=== PATIENT | female | born 1965 | race Caucasian/White ===

== ENCOUNTER 2025-04-03 11:50 | Inpatient (IN) | payer SELFPAY ==
[2025-04-03] VITALS (9 sets, daily range): BP systolic 135–155; BP diastolic 74–99; PULSE 79–106; RESP 12–20; TEMP 36.4–37.2; O2SAT 95–99; BMI 28.7; BMI 25.9
[2025-04-03 12:35] LABS: Mucous, Urine 0 SEEN /hpf (<or=2+); Red Blood Cells-Urine 0 SEEN /hpf (0-5)
[2025-04-03 12:36] LABS: Color, Urine Yellow (Yellow); Glucose, Dipstick Normal (Normal); Ketone-Dipstick Negative (Negative); Leukocyte Esterase-Dipstick 25 /ul (Negative); Nitrite-Dipstick Negative (Negative); Occult Blood-Urine 10 /ul (Negative); Protein-Dipstick 30 mg/dl (Negative); Specific Gravity, Urine 1.010 (1.002-1.030)
[2025-04-03 12:42] LABS: Urine Bilirubin Dipstick 3 mg/dL (Negative)
[2025-04-03 12:43] LABS: Hematocrit 42.5 % (37-47); Hemoglobin 14.8 g/dL (12.0-15.0); Immature Granulocytes Count 0.030 X10^3/uL (0.0-0.0); Mean Corp Hgb Conc 34.8 g/dL (32-36); Mean Corpuscular Volume 84.2 fL (81-99); Mean Platelet Vol. 9.7 fl (6.2-12.0); NRBC Flagged by Analyzer 0 % (0-5); Platelet Count 380 K/mm3 (150-450); RBC Distribution Width CV 15.7 % (11.6-14.6); RBC Distribution Width SD 47.9 fl (35.1-43.9); Red Blood Count 5.05 M/mm3 (4.2-5.4); White Blood Count 10.3 K/mm3 (4.4-11.0)
[2025-04-03 12:43] LABS: Squamous Epithelial Cells - UA 0-5 SEEN /hpf (5-10)
--- NOTE | 2025-04-03 13:36 | US_ITS ---
PROCEDURE: GALLBLADDER 04/03/2025 REASON FOR EXAM: CHOLEDOCHOLITHIASIS TECHNIQUE: Procedure Code: USGB Modality: US Procedure: GALLBLADDER COMPARISON: None. FINDINGS: LIVER ECHOGENICITY: Diffuse increase in hepatic parenchymal echogenicity. SIZE: Enlarged measuring 19.1 cm in length. CONTOUR: Smooth. MASS: None. PORTAL VEIN: Normal direction hepatopetal portal venous flow. GALLBLADDER SIZE: Normal. STONES: None. SLUDGE: None. WALL THICKNESS: Normal measuring 2.6 mm. PERICHOLECYSTIC FLUID: None. SONOGRAPHIC SNEED'S SIGN: Negative. OTHER: Diffuse echogenic intramural foci producing comet tail reverberation artifact, suggest gallbladder adenomyomatosis. BILE DUCTS: Normal with the CBD measuring 6.3 mm in diameter. PANCREAS: Unremarkable as visualized. The distal pancreas is obscured by overlying bowel gas. RIGHT KIDNEY: Normal size and echogenicity with a length of 12.0 cm. No hydronephrosis, nephrolithiasis, cyst or mass seen. ASCITES/EFFUSIONS: None. OTHER: None. US/Gallbladder IMPRESSION: 1. Hepatomegaly with diffuse hepatic steatosis. 2. Findings suggest extensive gallbladder adenomyomatosis. Reading Location: [id number]
[2025-04-03] MEDS: 0.9% Normal Saline (1000mL) 1,000 ML 150 ML IV ×2 (13:47→18:53)
[2025-04-03] MEDS: HYDROmorphone 0.5 MG/0.5 ML SYRINGE IV (13:47)
[2025-04-03 13:51] LABS: Lipase 28 U/L (13-75)
[2025-04-03 13:57] LABS: AST(SGOT) 270 U/L (<=31); Alanine Aminotransfer ALT/SGPT 586 U/L (<=34); Albumin, Serum 4.2 g/dL (3.4-4.8); Alkaline Phosphatase 634 U/L (35-104); Anion Gap 14 (5-15); BUN 11 mg/dL (4-19); BUN/Creat Ratio 18.5 RATIO (10-20); Calcium,Total 10.0 mg/dL (7.6-11.0); Carbon Dioxide 18.9 mmol/L (21.0-32.0); Chloride 104 mmol/L (98-108); Estimated Creatinine Clearance 86.39 ml/min (50-250); Globulin 3.3 g/dL (2.2-4.2); Glucose 114 mg/dL (70-99); Potassium 3.8 mmol/L (3.3-5.1)
--- NOTE | 2025-04-03 14:45 | CT_ITS ---
PROCEDURE: ABDOMEN/PELVIS W IV CONT ONLY 04/03/2025 REASON FOR EXAM: ABDOMINAL PAIN TECHNIQUE: Procedure Code: [id number] Modality: CT Procedure: ABDOMEN/PELVIS W IV CONT ONLY Coronal and Sagittal reconstruction series were provided. CONTRAST: Isovue 370 VOLUME: 75 mL One or more dose reduction techniques were used (e.g., Automated exposure control, adjustment of the mA and/or kV according to patient size, use of iterative reconstruction technique. RADIATION DOSE SUMMARY: CTDlvol: 24 mGy DLP: 738 mGycm FINDINGS: No lumbar compression fracture. Grade 1 subluxation L4 upon L5. Lung bases are clear. Mild intra and extrahepatic biliary dilatation with a mildly prominent gallbladder of the demonstrates enhancing and thickened wall. Distended intrapancreatic common bile duct. Correlate with laboratory values to assess for possible biliary obstruction. MRCP could be considered. No free-fluid or free air. No obstruction of the large bowel of the small bowel. No renal mass, calculus or hydronephrosis. Normal adrenal glands. No pancreatic mass. Negative for ascites. Negative for adenopathy. Negative for diverticulitis. CT/Abdomen/Pelvis W IV Cont ONLY IMPRESSION: Abnormal gallbladder with intra and extrahepatic biliary dilatation. Choledoch olithiasis and cholecystitis not excluded. Reading Location: [facility]
--- NOTE | 2025-04-03 16:14 | EDS_ITS ---
HPI HPI - GI History of Present Illness Chief Complaint: Abd Pain Informant: patient and spouse/S.O. Narrative Narrative: 59-year-old female presenting to the emergency room with epigastric right upper quadrant pain and jaundice. Patient states for at least a week she has been having pain and nausea. She notes that her stool is light-colored and greasy, her urine is dark, and she is becoming yellow. She states she has never had this problem before. She states she is otherwise been pretty healthy. PFSH PFSH Medical History Spinal stenosis Back pain (~02/05/25) Smoker Home Medications Medication Instructions Recorded Last Taken Type NK 04/03/25 Unknown History Allergy/AdvReac Type Severity Reaction Status Date / Time No Known Allergies Allergy Verified 04/03/25 11:51 Surgical History H/O unilateral salpingectomy H/O: hysterectomy Social History Smoking Status: Current every day smoker tobacco type: cigarettes ROS ROS ED Constitutional Constitutional ED: Denies chills or weight loss Eyes Eyes: Denies blurry vision, change in vision or diplopia ENT ENT ED: Denies ear pain, rhinorrhea or sore throat Cardiovascular Cardiovascular: Denies chest pain, orthopnea, palpitations or racing heartbeat Respiratory/Chest Respiratory/Chest: Denies cough, dyspnea or orthopnea Gastrointestinal Gastrointestinal: Reports abdominal pain, nausea and other Details: See history of present illness ; Denies diarrhea or vomiting Genitourinary Genitourinary ED: Denies dysuria, hematuria or urinary frequency Musculoskeletal Musculoskeletal: Reports back pain; Denies arthralgias, myalgias or neck pain Integumentary Reports other Details: Jaundice ; Denies abscess or rash Neurologic Neurologic: Denies headache(s), paresthesias or weakness Psychiatric Psychiatric: Denies anxiety, depression, suicidal ideation or suicidal thoughts Endocrine Endocrinology: Denies polydipsia, polyphagia or polyuria Allergic/Immunologic Allergic/Immunologic ED: Denies mouth swelling, tongue swelling or urticaria EXAM Physical Exam Const Vital Signs: 04/03/25 11:52 04/03/25 12:41 04/03/25 12:48 Temperature 99 F 97.8 F Temperature Source Oral Oral Pulse Rate 106 H 106 H Respiratory Rate 18 14 Respiratory Effort Short of Breath Respiratory Pattern Normal Blood Pressure 148/89 H 149/99 H Blood Pressure Mean 108 115 Pulse Ox 97 97 Oxygen Delivery Method Room Air Room Air 04/03/25 13:00 04/03/25 13:51 04/03/25 15:00 Temperature 97.8 F Temperature Source Oral Pulse Rate 104 H 99 79 Respiratory Rate 14 20 H 14 Respiratory Effort Respiratory Pattern Blood Pressure 140/90 H 151/74 H 145/89 H Blood Pressure Mean 106 99 107 Pulse Ox 97 95 99 Oxygen Delivery Method Room Air Room Air Room Air Positive well nourished, well developed and obese General Appearance ED: well developed and NAD Nutritional Appearance: obese HEENT Reports normocephalic, head/scalp atraumatic and moist mucous membranes Eyes PERRL and EOMs intact bilaterally General Eye ED: Yes scleral icterus Neck no lymphadenopathy, supple and no JVD Resp normal respiratory effort and clear to auscultation bilaterally Cardio regular rate, regular rhythm and no murmurs GI Inspection: Negative for abdominal distention Auscultation: normoactive bowel sounds Palpation: soft and tender epigastric and RUQ; Negative for guarding or rebound tenderness present Back/Spine no CVA tenderness and normal ROM Extremity normal to inspection General Extremety ED: Negative for edema General Extremity: Negative for edema Neuro oriented x3 and CN's II-XII intact bilaterally Sensorium / Orientation: alert Motor Exam: strength 5/5 throughout Psych mental status grossly normal Mood & Affect: Negative for depressed or tearful Skin no rashes or lesions noted and no wounds General Skin Exam: jaundice MDM MDM MDM Narrative Medical decision making narrative: Differential diagnosis includes choledocholithiasis acute cholecystitis gallstone pancreatitis pancreatitis malignancy or ulcer disease anemia obstructive jaundice Basic blood work shows a white count of 10.3 with a normal differential hemoglobin 14.8 platelet count of 380. BMP creatinine 0.59. Glucose 114. Total bilirubin is 8.79 AST of 278 ALT 586 alk phos 634 lipase is normal at 28. Urinalysis with no overt infection. Does have bilirubin and urobilinogen. Gallbladder ultrasound was obtained read by radiology reviewed by myself.. This reveals hepatic steatosis and suggestive of adenomyomatosis. Common bile duct is 6.3 mm. Wall thickness 2.6 mm no pericholecystic fluid negative sonographic Hoover's. I spoke with Dr. Mi from gastroenterology. We will obtain a CT of the abdomen pelvis. Plan will be for admission. History & Record Review Discussion w/independent historian: Patient and Significant other Lab Data Attestation: I reviewed the patient's lab results. Labs: Laboratory Results - last 24 hr 04/03/25 04/03/25 04/03/25 12:15 12:20 13:00 WBC 10.3 RBC 5.05 Hgb 14.8 Hct 42.5 MCV 84.2 MCH 29.3 MCHC 34.8 RDW Std Deviation 47.9 H RDW Coeff of Lissette 15.7 H Plt Count 380 MPV 9.7 Immature Gran % (Auto) 0.300 Neut % (Auto) 68.7 Lymph % (Auto) 22.8 [place] % (Auto) 5.8 Eos % (Auto) 1.7 Baso % (Auto) 0.7 Absolute Neuts (auto) 7.1 Absolute Lymphs (auto) 2.34 Nucleated RBC % 0 Sodium Cancelled 137 Potassium Cancelled 3.8 Chloride Cancelled 104 Carbon Dioxide Cancelled 18.9 L Anion Gap Cancelled 14 BUN Cancelled 11 Creatinine Cancelled 0.59 L Estim Creat Clear Calc Cancelled 86.39 Est GFR (MDRD) Non-Af Cancelled 103 BUN/Creatinine Ratio Cancelled 18.5 Glucose Cancelled 114 H Calcium Cancelled 10.0 Total Bilirubin Cancelled 8.79 H AST Cancelled 270 H ALT Cancelled 586 H Alkaline Phosphatase Cancelled 634 H Total Protein Cancelled 7.5 Albumin Cancelled 4.2 Globulin Cancelled 3.3 Albumin/Globulin Ratio Cancelled 1.3 Lipase Cancelled 28 Urine Color Yellow Urine Clarity Clear Urine pH 7.0 Ur Specific [place] 1.010 Urine Protein 30 H Urine Glucose (UA) Normal Urine Ketones Negative Urine Occult Blood 10 H Urine Nitrite Negative Urine Bilirubin 3 H Urine Urobilinogen 4 H Ur Leukocyte Esterase 25 H Urine RBC 0 SEEN Urine WBC 0-5 SEEN Ur Squamous Epith Cells 0-5 SEEN Urine Bacteria 0 SEEN Urine Mucus 0 SEEN Radiography Diagnostic Testing: Clinical Impression(s) from Imaging Studies Gallbladder Ultrasound 04/03/25 13:36 IMPRESSION: 1. Hepatomegaly with diffuse hepatic steatosis. 2. Findings suggest extensive gallbladder adenomyomatosis. Reading Location: [id number] Abdomen/Pelvis CT 04/03/25 14:45 IMPRESSION: Abnormal gallbladder with intra and extrahepatic biliary dilatation. Ch oledocholithiasis and cholecystitis not excluded. Reading Location: [facility] Management Discussion w/another healthcare provider: Hospitalist (Dr Martins) and Cleaner Assistant (Dr Mi) Discharge Plan Dx/Rx/DC Orders Clinical Impression: Obstructive jaundice, Abdominal pain Disposition Disposition: Acute Care Hospital [facility]
--- NOTE | 2025-04-03 16:49 | PCM.HP.STD ---
HPI - General General Date of Admission: 04/03/25 Date of Service: 04/03/25 Chief Complaint: Abdominal pain with jaundice HPI Narrative LADARIUS LIN, is a 59 F who presented to [facility] ED on 04/03/2025 with abdominal pain and jaundice. Patient has no significant past medical history, is on no medications at home. She is a current smoker, smokes 10 to 20 cigarettes daily. She lives at home with her boyfriend, has good functional status at baseline. 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 She reports ongoing abdominal pain now for about 2 months. She states initially was intermittent but has now been more constant over the past few weeks, and she noticed that her skin was turning yellow about 2 days ago. She notes that eating does seem to make the pain worse. Nothing seems to make the pain much better. She has been trying Tylenol, naproxen, Pepcid and Tums with minimal relief of symptoms. In the ED she was mildly hypertensive to the 140 systolic but otherwise afebrile, in normal sinus rhythm and stable on room air at rest. Labs notable for T. bili 8.79, AST 270, ALT 586, alk phos 634. Gallbladder ultrasound showed findings suggesting extensive gallbladder adenomyomatosis as well as hepatomegaly, no other concerning findings. CT abdomen pelvis showed an abnormal gallbladder with intra and extrahepatic biliary ductal dilation. ED visit discussed with Dr. Mi who recommended admission to medicine with plan for ERCP tomorrow. Hospitalist was then contacted for admission. I saw the patient at bedside in the ED, boyfriend was present. Patient was sitting back fairly comfortably in bed, conversing normally, in no acute distress. She had been given doses of IV Dilaudid and Zofran with some relief of pain and nausea. She denies any fevers or chills. Denied any other acute concerns currently. Will be admitted for further management. [facility] Medical History Spinal stenosis Back pain (~02/05/25) Smoker Home Medications Medication Instructions Recorded Last Taken Type NK 04/03/25 Unknown History Allergy/AdvReac Type Severity Reaction Status Date / Time No Known Allergies Allergy Verified 04/03/25 11:51 Surgical History H/O unilateral salpingectomy H/O: hysterectomy Social History Smoking Status: Current every day smoker tobacco type: cigarettes ROS Constitutional Constitutional: Denies chills, fatigue, fever(s) or weakness Eyes Eyes: Denies change in vision Cardiovascular Cardiovascular: Denies chest pain Respiratory/Chest Respiratory/Chest: Denies shortness of breath at rest Gastrointestinal Gastrointestinal: Reports abdominal pain and nausea; Denies constipation, diarrhea or vomiting Musculoskeletal Musculoskeletal: Denies arthralgias or myalgias Neurologic Neurologic: Denies dizziness, focal weakness, headache(s), numbness or tingling Vital Signs Vital Signs Vital Signs: 04/03/25 11:52 04/03/25 12:41 04/03/25 12:48 Temperature 99 F 97.8 F Temperature Source Oral Oral Pulse Rate 106 H 106 H Respiratory Rate 18 14 Respiratory Effort Short of Breath Respiratory Pattern Normal Blood Pressure 148/89 H 149/99 H Blood Pressure Mean 108 115 Pulse Ox 97 97 Oxygen Delivery Method Room Air Room Air 04/03/25 13:00 04/03/25 13:51 04/03/25 15:00 Temperature 97.8 F Temperature Source Oral Pulse Rate 104 H 99 79 Respiratory Rate 14 20 H 14 Respiratory Effort Respiratory Pattern Blood Pressure 140/90 H 151/74 H 145/89 H Blood Pressure Mean 106 99 107 Pulse Ox 97 95 99 Oxygen Delivery Method Room Air Room Air Room Air Weight Weight: 66.678 kg Body Mass Index (BMI) 28.7 Physical Exam Const alert, oriented x3, no apparent distress and average body habitus Constitutional Narrative: Upper middle-aged female, good energy level noted, sitting back fairly comfortably in bed, conversing normally, in no acute distress. General Appearance: cooperative and comfortable HEENT normocephalic, head/scalp atraumatic, hearing grossly normal bilaterally, nasal mucous membranes and turbinates normal and moist oral mucous membranes Eyes PERRL and EOMs intact bilaterally Eyes Narrative: Scleral icterus noted. Neck full ROM Chest inspection of chest normal Resp normal respiratory effort, normal air movement, no use of accessory muscles and clear to auscultation bilaterally Cardio regular rate, regular rhythm, no murmurs and peripheral pulses 2+ throughout GI GI Narrative: Mild tenderness to palpation noted in the epigastric to right upper quadrant areas. Abdomen otherwise nondistended and soft on palpation. Back/Spine normal ROM Extremity normal to inspection, full ROM and no pedal edema Skin Skin Narrative: Jaundice noted. Psych mental status grossly normal Results Lab / Micro Data 04/03/25 12:15 04/03/25 13:00 Labs: Laboratory Results - last 24 hr 04/03/25 12:15: WBC 10.3, RBC 5.05, Hgb 14.8, Hct 42.5, MCV 84.2, MCH 29.3, MCHC 34.8, RDW Std Deviation 47.9 H, RDW Coeff of Lissette 15.7 H, Plt Count 380, MPV 9.7, Immature Gran % (Auto) 0.300, Neut % (Auto) 68.7, Lymph % (Auto) 22.8, [place] % (Auto) 5.8, Eos % (Auto) 1.7, Baso % (Auto) 0.7, Absolute Neuts (auto) 7.1, Absolute Lymphs (auto) 2.34, Nucleated RBC % 0, Sodium Cancelled, Potassium Cancelled, Chloride Cancelled, Carbon Dioxide Cancelled, Anion Gap Cancelled, BUN Cancelled, Creatinine Cancelled, Estim Creat Clear Calc Cancelled, Est GFR (MDRD) Non-Af Cancelled, BUN/Creatinine Ratio Cancelled, Glucose Cancelled, Calcium Cancelled, Total Bilirubin Cancelled, AST Cancelled, ALT Cancelled, Alkaline Phosphatase Cancelled, Total Protein Cancelled, Albumin Cancelled, Globulin Cancelled, Albumin/Globulin Ratio Cancelled, Lipase Cancelled 04/03/25 12:20: Urine Color Yellow, Urine Clarity Clear, Urine pH 7.0, Ur Specific [place] 1.010, Urine Protein 30 H, Urine Glucose (UA) Normal, Urine Ketones Negative, Urine Occult Blood 10 H, Urine Nitrite Negative, Urine Bilirubin 3 H, Urine Urobilinogen 4 H, Ur Leukocyte Esterase 25 H, Urine RBC 0 SEEN, Urine WBC 0-5 SEEN, Ur Squamous Epith Cells 0-5 SEEN, Urine Bacteria 0 SEEN, Urine Mucus 0 SEEN 04/03/25 13:00: Sodium 137, Potassium 3.8, Chloride 104, Carbon Dioxide 18.9 L, Anion Gap 14, BUN 11, Creatinine 0.59 L, Estim Creat Clear Calc 86.39, Est GFR (MDRD) Non-Af 103, BUN/Creatinine Ratio 18.5, Glucose 114 H, Calcium 10.0, Total Bilirubin 8.79 H, AST 270 H, ALT 586 H, Alkaline Phosphatase 634 H, Total Protein 7.5, Albumin 4.2, Globulin 3.3, Albumin/Globulin Ratio 1.3, Lipase 28 Imaging Radiology Impression Gallbladder Ultrasound 04/03/25 13:36 IMPRESSION: 1. Hepatomegaly with diffuse hepatic steatosis. 2. Findings suggest extensive gallbladder adenomyomatosis. Reading Location: [id number] Abdomen/Pelvis CT 04/03/25 14:45 IMPRESSION: Abnormal gallbladder with intra and extrahepatic biliary dilatation. Choledocholithiasis and cholecystitis not excluded. Reading Location[facility] Assessment & Plan Assessment/Plan (1) Abdominal pain: (2) Obstructive jaundice: PLAN: Plan Patient is a 59-year-old female who presented to [facility] ED on 04/03/2025 with abdominal pain and jaundice. 1. Abdominal pain with jaundice – Admit under inpatient status to [facility]. GI consulted. Unclear etiology at this time. CT abdomen pelvis with abnormal gallbladder with intra and extrahepatic biliary dilation. Gallbladder ultrasound with apparent extensive gallbladder adenomyomatosis, no gallstones noted. LFTs with T. bili 8.7, AST 270, ALT 76, alk phos 634. Lipase normal and no evidence of pancreatitis on CT. Okay for clear liquid diet for now, then n.p.o. at midnight with plan for ERCP tomorrow. IV Zosyn ordered. Trend daily labs. Pain control with Tylenol, p.o. oxycodone and IV morphine as needed. 2. Tobacco dependence – Smoking 10 to 20 cigarettes daily. Nicotine replacement therapy available as needed. Discussed cessation of discharge. 3. 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 She has been doing outpatient physical therapy for this. No inpatient needs, continue outpatient follow-up. DVT prophylaxis: Lovenox CODE STATUS: Full code, verified Expected disposition: Home, TBD Total clinical time spent by myself addressing the patient's medical issues, reviewing all the data, and collaborating with patient's care team: 62 minutes. Charges/Coding Visit Charges Inpatient E&M: 73031 Init Hosp L2
--- NOTE | 2025-04-03 16:51 | CON.PCM.GI_ITS ---
HPI Consult Data Date of Consult: 04/03/25 HPI Narrative Reason for Consultation: Obstructive jaundice HPI Narrative: LADARIUS LIN, is a 59-year-old female presenting to the emergency room with epigastric and right upper quadrant pain and jaundice. The patient reports experiencing pain and nausea for approximately one week. She notes associated symptoms of light-colored, greasy stools, dark urine, and progressive yellowing of her skin. She denies any history of similar issues and reports being otherwise healthy. * Laboratory Data: * WBC: 10.3 thou/mcL (normal) * Hemoglobin: 14.8 g/dL (normal) * Platelets: 380 thou/mcL (normal) * BUN: 11 mg/dL (normal) * Creatinine: 0.59 mg/dL (normal) * Total Bilirubin: 8.79 mg/dL (elevated) * AST: 270 U/L (elevated) * ALT: 586 U/L (elevated) * Alkaline Phosphatase: 634 U/L (elevated) * Imaging: * Abdominal Ultrasound: Reveals hepatomegaly with diffuse steatosis and extensive gallbladder adenomyomatosis. * CT Abdomen/Pelvis: Demonstrates intrahepatic and extrahepatic ductal dilation, a mildly prominent gallbladder with an enhancing gallbladder wall, and a distended intrapancreatic common bile duct. PFSH Medical History Spinal stenosis Back pain (~02/05/25) Smoker Home Medications Medication Instructions Recorded Last Taken Type NK 04/03/25 Unknown History Allergy/AdvReac Type Severity Reaction Status Date / Time No Known Allergies Allergy Verified 04/03/25 11:51 Surgical History H/O unilateral salpingectomy H/O: hysterectomy Social History Smoking Status: Current every day smoker tobacco type: cigarettes Lab / Micro Data 04/03/25 12:15 04/03/25 13:00 Labs: Laboratory Results - last 24 hr 04/03/25 12:15: WBC 10.3, RBC 5.05, Hgb 14.8, Hct 42.5, MCV 84.2, MCH 29.3, MCHC 34.8, RDW Std Deviation 47.9 H, RDW Coeff of Lissette 15.7 H, Plt Count 380, MPV 9.7, Immature Gran % (Auto) 0.300, Neut % (Auto) 68.7, Lymph % (Auto) 22.8, [place] % (Auto) 5.8, Eos % (Auto) 1.7, Baso % (Auto) 0.7, Absolute Neuts (auto) 7.1, Absolute Lymphs (auto) 2.34, Nucleated RBC % 0, Sodium Cancelled, Potassium Cancelled, Chloride Cancelled, Carbon Dioxide Cancelled, Anion Gap Cancelled, BUN Cancelled, Creatinine Cancelled, Estim Creat Clear Calc Cancelled, Est GFR (MDRD) Non-Af Cancelled, BUN/Creatinine Ratio Cancelled, Glucose Cancelled, Calcium Cancelled, Total Bilirubin Cancelled, AST Cancelled, ALT Cancelled, Alkaline Phosphatase Cancelled, Total Protein Cancelled, Albumin Cancelled, Globulin Cancelled, Albumin/Globulin Ratio Cancelled, Lipase Cancelled 04/03/25 12:20: Urine Color Yellow, Urine Clarity Clear, Urine pH 7.0, Ur Specific [place] 1.010, Urine Protein 30 H, Urine Glucose (UA) Normal, Urine Ketones Negative, Urine Occult Blood 10 H, Urine Nitrite Negative, Urine Bilirubin 3 H, Urine Urobilinogen 4 H, Ur Leukocyte Esterase 25 H, Urine RBC 0 SEEN, Urine WBC 0-5 SEEN, Ur Squamous Epith Cells 0-5 SEEN, Urine Bacteria 0 SEEN, Urine Mucus 0 SEEN 04/03/25 13:00: Sodium 137, Potassium 3.8, Chloride 104, Carbon Dioxide 18.9 L, Anion Gap 14, BUN 11, Creatinine 0.59 L, Estim Creat Clear Calc 86.39, Est GFR (MDRD) Non-Af 103, BUN/Creatinine Ratio 18.5, Glucose 114 H, Calcium 10.0, Total Bilirubin 8.79 H, AST 270 H, ALT 586 H, Alkaline Phosphatase 634 H, Total Protein 7.5, Albumin 4.2, Globulin 3.3, Albumin/Globulin Ratio 1.3, Lipase 28 Imaging Radiology Impression Gallbladder Ultrasound 04/03/25 13:36 IMPRESSION: 1. Hepatomegaly with diffuse hepatic steatosis. 2. Findings suggest extensive gallbladder adenomyomatosis. Reading Location: [facility] Abdomen/Pelvis CT 04/03/25 14:45 IMPRESSION: Abnormal gallbladder with intra and extrahepatic biliary dilatation. Choledocholithiasis and cholecystitis not excluded. Reading Location: [facility] Assessment & Plan Assessment/Plan (1) Abdominal pain: (2) Obstructive jaundice: PLAN: The patient presents with signs and symptoms consistent with biliary obstruction and inflammation. The clinical picture points towards an acute process given the elevated liver enzymes, bilirubin, and imaging findings. The combination of RUQ pain, jaundice, and laboratory results suggests choledocholithiasis (common bile duct stones) and cholecystitis (gallbladder inflammation) as the primary diagnoses, as suspected clinically. The imaging also reveals pre-existing conditions like hepatic steatosis and gallbladder adenomyomatosis. The lab results indicate significant cholestasis and hepatocellular injury. [place] problems: * Choledocholithiasis: Strongly suggested by the intra/extrahepatic ductal dilation and distended common bile duct. * Cholecystitis: Indicated by the RUQ pain, nausea, and enhancing gallbladder wall on CT. * Jaundice and Hyperbilirubinemia: Due to common bile duct obstruction. * Elevated Liver Enzymes: Indicative of both cholestatic and hepatocellular injury. * Extensive Gallbladder Adenomyomatosis and Hepatic Steatosis: Incidental/pre- existing findings that may contribute to the overall clinical picture or risk profile. Plan * Diagnostics: * Diagnostic and therapeutic ERCP to definitively confirm the presence and location of common bile duct stones and potentially manage them endoscopically. * Monitor complete blood count and liver function tests closely. * Type and crossmatch blood for potential surgical intervention. * Therapeutics: * Initiate NPO (nil per os) status. * Start IV fluids to ensure hydration. * Administer pain management medication as needed. * Begin empiric broad-spectrum antibiotics to cover potential ascending cholangitis (infection of the bile duct), given the obstruction and inflammation. Charges/Coding Visit Charges Inpatient E&M: 64623 Init Hosp L3
--- OUTSIDE RECORDS SUMMARY | 2025-04-03 17:09 | XMS RPT_ITS | CCD ---
Author Organization [facility] Inform ion Partnership [facility] Care Team Providers Care Manager Decision Support Name Role Phone PHYSICIAN, NONE Primary Care Unavailable SUE JIMENEZ Admitting Unavailable SUE JIMENEZ Attending Unavailable PAULINE CHARLTON Consulting Unavailable Unavailable Primary Care Provider Unavailabl e Unavailable Primary Care Provider Unavailabl e SELF Referring Unavailable CASS CESAR Attending Unavailable CASS CESAR Referring Unavailable DANIEL MICHAEL Attending Unavailable RUDDY CORREA Attending Unavailable NANCY LAWSON Referring Unavailable LULU, NANCY Referring Unavailable NANCY LAWSON Referring Unavailable JOSELYN FRANCES Attending Unavailable NANCY LAWSON Referring Unavailable LULU, NANCY Referring Unavailable RUDDY CORREA Attending Unavailable NANCY LAWSON Referring Unavailable Medications Current Medications Medication Drug Class(es) Dates Sig (Normalized) Sig (Original) cyclobenzaprine hydrochloride 10 mg oral tablet (5 sources) Muscle Relaxant Start: 10-04-2023 End: 02-14-2025 take 1 tablet by mouth every eight hours as needed for muscle spasms and muscle spasms cyclobenzaprine (FLEXERIL) 10 mg tablet Indications: Muscle spasms of both lower extremities Take 1 tablet by mouth three times a day as needed for up to 9 doses. 9 tablet 10/04/2023 Active diphenhydrAMINE hydrochloride 25 mg oral capsule (3 sources) Histamine-1 Receptor Antagonist take 1 capsule by mouth once daily diphenhydrAMINE (BENADRYL) 25 mg capsule Take 25 mg by mouth once daily. Active traMADol hydrochloride 50 mg oral tablet (1 source) Opioid Agonist Start: 02-07-2025 End: 02-10-2025 take 1 tablet by mouth every six hours as needed for pain traMADol (ULTRAM) 50 mg tablet Indications: Trauma , Strain of lumbar region, initial encounter , Disc disorder of lumbar region , Lumbar paraspinal muscle spasm , Work related injury Take 1 tablet by mouth every 6 hours as needed for pain for up to 3 days. 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; Translations: [Work related injury] Onset: 02-07-2025 Episodic Essential hypertension (2 sources) Essential hypertension; Translations: [Essential (primary) hypertension] Onset: 02-07-2025 02-07-2025 Chronic Other connective tissue disease (1 source) Spasm; Translations: [Other muscle spasm] 10-04-2023 Episodic Other connective tissue disease (1 source) Muscle weakness (generalized); Translations: [Weakness of trunk musculature] Onset: 03-01-2025 Episodic Other connective tissue disease (1 source) Other symptoms and signs involving the musculoskeletal system; Translations: [Weakness of both lower extremities] Onset: 03-01-2025 Episodic Other injuries and conditions due to external causes (1 source) Injury, unspecified, initial encounter; Translations: [Trauma] Onset: 02-07-2025 Episodic Spondylosis; intervertebral disc disorders; other back problems (1 source) Unspecified thoracic, thoracolumbar and lumbosacral intervertebral disc disorder; Translations: [Disc disorder of lumbar region] Onset: 02-07-2025 Chronic Spondylosis; intervertebral disc disorders; other back problems (9 sources) Acute back pain with sciatica; Translations: [Lumbago with sciatica, unspecified side] Onset: 02-07-2025 02-07-2025 Episodic Sprains and strains (4 sources) Sprain of ligaments of lumbar spine, subsequent encounter; Translations: [Sprain of ligaments of lumbar spine, initial encounter] Onset: 02-07-2025 Episodic Past or Other Problems Problem Classification Problem Date Documented Da te Episodic/Chronic Unclassified (1 source) Does not have primary care provider 02-07-2025 Results Test Name Value Interpretation Reference Range Facility [id number] 03-24-2025 [id number] O ID: [id number] Author: RUDDY CORREA PT Service: ? Author Type: Physical Therapist Type: [id number] Filed: 03/24/2025 11:27 Note Text: [facility] Rehabilitation [facility] Sports Therapy Physical Therapy Plan of Care Certification Patient Name: Ladarius Lin : 1965 [facility] #: [id number] Date: 03/24/2025 To: Nancy Lawson PA-C From Therapist: Ruddy Correa PT, NAIF RE: Patient Certification/ Recertification Your review, approval and electronic signature are required in order to comply with Payor: [facility] / Plan: EMY MCO / Product Type: MCO / regulations. The identified Physical Therapy PLAN OF CARE for the patient is as follows: S33.5XXD Lumbar sprain, subsequent encounter (primary encounter diagnosis) M54.16 Radiculopathy, lumbar region M53.86 Decreased range of motion of lumbar spine M62.81 Weakness of trunk musculature R29.898 Weakness of both lower extremities PLAN OF CARE UPDATE: Assessment: Ladarius Lin demonstrates no improvement in bed mobility, sitting, standing, walking in the house, walking in the community, stair negotiation, working, sleeping, driving, cleaning, cooking, dressing, and grooming. The patient has worsened with regard to bilateral lower back and bilateral LE radicular symptoms, lumbar ROM, and with ability to complete ADL and work tasks since her return to work on 03/22/2025. Patient continues to present with impairments in ADL's, gait, independence in exercise, overall function, patient reported outcome measures, posture, range of motion, sensation, strength, and symptom management that interfere with sleeping, bed mobility, walking in the house, walking in the community, sitting, stair negotiation, driving, working, cooking, cleaning, dressing, grooming, standing (Unable to lie on either side, lying in supine wakes her up as she is not used to lying on her back to sleep. Needed assist for doffing work clothes to get into bathtub on 03/22/25.) . Current prognosis is Fair due to: clinical presentation, limited tolerance to activity, Prognosis may be improved by good overall health status, acuteness of injury. Patient is to contact Nancy Lawson PA-C, for earlier follow up and to determine what the next step is for the patient. The patient will benefit from continued skilled therapy services to meet the updated goals for this plan of care as noted below. Goals for Episode of Care: addressed 03/24/2025 Patient to be independent in home exercise program for trunk, abdominal and bilateral LE strengthening exercises in patient preferred direction to return patient to prior level of function and return to independent ambulation. (Unable to complete HEP since returning to work) Patient will decrease lower back and L LE radicular pain to no greater than 2-5 out of 10 at rest and with functional activities to allow patient to improve standing tolerance for ADLs, ambulation, sleeping, ADL ability, and personal care tasks. (Ongoing. Patient rates her pain at 10 out of 10 today and has been this level since returning to work) Patient will increase active ROM of lumbar spine to minimal limitation overall to allow pt to improve performance of ADL and to improve gait. (Continued limitation and worse lumbar ROM extension) Patient will demonstrate increase in trunk, abdominal and L LE strength to 4-4+/5 to 4+/5 during manual muscle testing in order to improve function for ADL functional tasks, transfers, prior functional tasks, and work tasks when able to be released to return to work. Ongoing. Noting decrease in bilateral LE and trunk strength this date) Perform ADL, personal care, and home management tasks and work tasks when able with decreased report of symptoms/pain in 4-6 weeks. (Continuing difficulty with ADL tasks, personal care, work activities) Patient Goals: To be able to get away from the WW use and be able to get in 10 days without it. Time Frame for Goals and Treatment : 05/13/25 Planned Interventions, Frequency, and Duration: 2x/week, 6 weeks Total Number of Visits Planned: 12 (No further [facility] C9 approval at this time. Patient is to contact the therapy office with any updates.) Patient to be seen for Therapeutic exercise (34330), Neuromuscular re-education (99890), Manual therapy (42729), Therapeutic activities (39072), Self-group home management (47608), Gait Training (60974), Patient/Family/Caregiver Education PLAN FOR NEXT VISIT: Patient is to contact Nancy Lawson PA-C's office to determine what her next step is as her BWC C9 is and her pain level is 10 out of 10. For further details regarding this patient refer to the Physical Therapy electronically documented visit dated 03/24/2025. Provider Attestation I have reviewed the treatment plan for Ladarius Lin, F# [id number] for the period of 03/24/25 -- 05/13/25, established on 03/24/2025. Signature certifies the need for t (more content not included)... [facility]Speech [facility] ( [facility]) LADARIUS LIN ([id number]) 1965 F Date Time Provider Department 03/24/25 10:15 AM RUDDY CORREA [facility] Date Time Provider Department Center 03/24/2025 10:15 AM [id number], CYNTHIA*RUST M Reason for Visit: PT Progress Note [1596] Primary Visit Diagnosis:Lumbar sprain, subsequent encounter [S33.5XXD] Other Visit Diagnoses:Radiculopathy, lumbar region [M54.16] Decreased range of motion of lumbar spine [M53.86] Weakness of trunk musculature [M62.81] Weakness of both lower extremities [R29.898] Allergies As of Date: 03/24/2025 (No Known Allergies) Date Reviewed: 02/07/2025 Reviewed by: Cinda Bansal, ASUNCION - Fully Assessed Prescriptions as of 03/28/2025 - cyclobenzaprine (FLEXERIL) 10 mg tablet Take 1 tablet by mouth three times a day as needed for muscle spasm. - diphenhydrAMINE (BENADRYL) 25 mg capsule Take 25 mg by mouth once daily. [facility]/Speech Visit ( [facility]) LADARIUS LIN ([id number]) 1965 F Date Time Provider Department 03/21/25 10:00 AM NEREIDA TYRONE M [facility] Date Time Provider Department Center 03/21/2025 10:00 AM [id number], TYRONE*RUST Reason for Visit: Physical Therapy [503] Primary Visit Diagnosis:Radiculopathy, lumbar region [M54.16] Other Visit Diagnoses:Decreased range of motion of lumbar spine [M53.86] Weakness of trunk musculature [M62.81] Weakness of both lower extremities [R29.898] Allergies As of Date: 03/21/2025 (No Known Allergies) Date Reviewed: 02/07/2025 Reviewed by: Cinda Bansal, RN - Fully Assessed Prescriptions as of 03/21/2025 - cyclobenzaprine (FLEXERIL) 10 mg tablet Take 1 tablet by mouth three times a day as needed for muscle spasm. - diphenhydrAMINE (BENADRYL) 25 mg capsule Take 25 mg by mouth once daily. [facility] 03-17-2025 [facility] Office Visit ([facility] ) LADARIUS LIN ([id number]) 1965 F Date Time Provider Department 03/17/25 9:00 AM [facility] During your visit today, we recorded the following information about you: Allergies As of Date: 03/17/2025 (No Known Allergies) Date Reviewed: 02/07/2025 Reviewed by: Cinda Bansal, RN - Fully Assessed Reason for Visit: Pain [78] Primary Visit Diagnosis:Sprain of ligaments of lumbar spine, initial encounter [S33.5XXA] Other Visit Diagnosis:Intervertebral disc disorders with radiculopathy, lumbar region [M51.16] Order(s):cyclobenzaprine (FLEXERIL) 10 mg tabletTake 1 tablet by mouth three times a day as needed for muscle spasm.Disp: 14 tabletRfl: 0 Prescriptions as of 03/17/2025 - cyclobenzaprine (FLEXERIL) 10 mg tablet Take 1 tablet by mouth three times a day as needed for muscle spasm. - diphenhydrAMINE (BENADRYL) 25 mg capsule Take 25 mg by mouth once daily. Problem List As Of Date 03/17/2025 Noted Resolved Lumbar sprain [S33.5XXA] 03/01/2025 Radiculopathy, lumbar region [M54.16] 03/01/2025 Decreased range of motion of lumbar spine [M53.*03/01/2025 Weakness of trunk musculature [M62.81] 03/01/2025 Weakness of both lower extremities [R29.898] 03/01/2025 Prescriptions ordered this encounter Disp Refills Start End CYCLOBENZAPRINE 10 MG TABLET 14 t* 0 03/17/2025 Route: PO Sig: Take 1 tablet by mouth three times a day as needed for muscle spasm. Medications Discontinued During This Encounter Prescriptions - tiZANidine (ZANAFLEX) 4 mg tablet (Discontinued) Take 1 tablet by mouth every 8 hours as needed (For spasms). Encounter Status:Closed by MARCELINO COYLE on 03/17/25 [facility] CNTHERAPYon 03-16-2025 CNTHERAPY OT/PT/Speech Visit ( [facility]) LADARIUS LIN ([id number]) 1965 F Date Time Provider Department 03/16/25 9:30 AM JOSELYN FRANCES [facility] Date Time Provider Department Center 03/16/2025 9:30 AM [id number], AMBER M RUST M Reason for Visit: Physical Therapy [503] Primary Visit Diagnosis:Lumbar sprain, subsequent encounter [S33.5XXD] Other Visit Diagnoses:Radiculopathy, lumbar region [M54.16] Decreased range of motion of lumbar spine [M53.86] Weakness of trunk musculature [M62.81] Weakness of both lower extremities [R29.898] Allergies As of Date: 03/16/2025 (No Known Allergies) Date Reviewed: 02/07/2025 Reviewed by: Cinda Bansal, RN - Fully Assessed Prescriptions as of 03/16/2025 - tiZANidine (ZANAFLEX) 4 mg tablet Take 1 tablet by mouth every 8 hours as needed (For spasms). - diphenhydrAMINE (BENADRYL) 25 mg capsule Take 25 mg by mouth once daily. [facility] THERAPY NTon 03-16-2025 THERAPY NT HNO ID: [id number] Author: JOSELYN FRANCES PTA Service: ? Author Type: Sliver Cutter Type: Therapy (PT/OT/Speech/Resp) Filed: 03/16/2025 10:06 Note Text: Program_ID:[id number] Access Code: [email or web address] URL: [email or web address] Date: 03-16-2025 Prepared By: RUDDY CORREA Program Notes Exercises - Supine Hamstring Stretch with Strap - 1-2 x daily - 7 x weekly - 1 sets - 3 reps - [address] [facility] CNTHERAPYon 03-07-2025 CNTHERAPY OT/PT/Speech Visit ( [facility]) LADARIUS LIN ([id number]) 1965 F Date Time Provider Department 03/07/25 10:45 AM ELIAS PADRONILA Tony [facility] Date Time Provider Department Center 03/07/2025 10:45 AM [id number] TYRONE*RUST M Reason for Visit: Physical Therapy [503] Primary Visit Diagnosis:Radiculopathy, lumbar region [M54.16] Other Visit Diagnoses:Decreased range of motion of lumbar spine [M53.86] Weakness of trunk musculature [M62.81] Weakness of both lower extremities [R29.898] Allergies As of Date: 03/07/2025 (No Known Allergies) Date Reviewed: 02/07/2025 Reviewed by: Cinda Bansal, RN - Fully Assessed Prescriptions as of 03/07/2025 - traMADol (ULTRAM) 50 mg tablet Take 1 tablet by mouth every 6 hours as needed for pain for up to 3 days. - tiZANidine (ZANAFLEX) 4 mg tablet Take 1 tablet by mouth every 8 hours as needed (For spasms). - diphenhydrAMINE (BENADRYL) 25 mg capsule Take 25 mg by mouth once daily. [facility] THERAPY NTon 03-07-2025 THERAPY NT HNO ID: [id number] Author: TYRONE PADRON PTA Service: ? Author Type: Sliver Cutter Type: Therapy (PT/OT/Speech/Resp) Filed: 03/07/2025 11:22 Note Text: Program_ID:[id number] Access Code: [email or web address] URL: [email or web address] Date: 03-07-2025 Prepared By: URDDY CORREA Program Notes Exercises - Supine heel walk - 2 x daily - 7 x weekly - 1 sets - 5 reps - Active Straight Leg Raise with Quad Set - 2 x daily - 7 x weekly - 2 sets - 10 reps - 2 seconds hold - Active Straight Leg Raise with Quad Set - 2 x daily - 7 x weekly - 2 sets - 10 reps - [address] [facility] CNOVon 03-04-2025 CNOV Office Visit ([facility] ) RILEYLADARIUS Chase ([id number]) 1965 F Date Time Provider Department 03/04/25 2:00 PM [facility] During your visit today, we recorded the following information about you: Allergies As of Date: 03/04/2025 (No Known Allergies) Date Reviewed: 02/07/2025 Reviewed by: Cinda Bansal RN - Fully Assessed Reason for Visit: Pain [78] Primary Visit Diagnosis:Sprain of ligaments of lumbar spine, initial encounter [S33.5XXA] Other Visit Diagnosis:Intervertebral disc disorders with radiculopathy, lumbar region [M51.16] Order(s):traMADol (ULTRAM) 50 mg tabletTake 1 tablet by mouth every 6 hours as needed for pain for up to 3 days.Disp: 12 tabletRfl: 0 Prescriptions as of 03/04/2025 - traMADol (ULTRAM) 50 mg tablet Take 1 tablet by mouth every 6 hours as needed for pain for up to 3 days. - tiZANidine (ZANAFLEX) 4 mg tablet Take 1 tablet by mouth every 8 hours as needed (For spasms). - diphenhydrAMINE (BENADRYL) 25 mg capsule Take 25 mg by mouth once daily. Problem List As Of Date 03/04/2025 Noted Resolved Lumbar sprain [S33.5XXA] 03/01/2025 Radiculopathy, lumbar region [M54.16] 03/01/2025 Decreased range of motion of lumbar spine [M53.*03/01/2025 Weakness of trunk musculature [M62.81] 03/01/2025 Weakness of both lower extremities [R29.898] 03/01/2025 Prescriptions ordered this encounter Disp Refills Start End TRAMADOL 50 MG TABLET 12 t* 0 03/04/2025 03/07/2025 Route: PO Sig: Take 1 tablet by mouth every 6 hours as needed for pain for up to 3 days. Encounter Status:Closed by MARCELINO COLYE on 03/04/25 [facility] CNTHERAPYon 03-04-2025 CNTHERAPY OT/PT/Speech Visit ( [facility]MT[facility]) LADARIUS LIN ([id number]) 1965 F Date Time Provider Department 03/04/25 10:15 AM TYRONE PADRON [facility] Date Time Provider Department Center 03/04/2025 10:15 AM [id number], SHEILA*RUST Reason for Visit: Physical Therapy [503] Primary Visit Diagnosis:Radiculopathy, lumbar region [M54.16] Other Visit Diagnoses:Decreased range of motion of lumbar spine [M53.86] Weakness of trunk musculature [M62.81] Weakness of both lower extremities [R29.898] Allergies As of Date: 03/04/2025 (No Known Allergies) Date Reviewed: 02/07/2025 Reviewed by: Cinda Bansal, RN - Fully Assessed Prescriptions as of 03/04/2025 - tiZANidine (ZANAFLEX) 4 mg tablet Take 1 tablet by mouth every 8 hours as needed (For spasms). - diphenhydrAMINE (BENADRYL) 25 mg capsule Take 25 mg by mouth once daily. [facility] [id number] 03-02-2025 [id number] O ID: [id number] Author: RUDDY CORREA PT Service: ? Author Type: Physical Therapist Type: [id number] Filed: 03/02/2025 07:53 Note Text: [facility] Rehabilitation and Sports Therapy Physical Therapy Plan of Care Certification Patient Name: Ladarius Lin : 1965 [facility] #: [id number] Date: 03/01/2025 To: Nancy Lawson PA-C From Therapist: Ruddy Correa PT, NAIF RE: Patient Certification/ Recertification Your review, approval and electronic signature are required in order to comply with Payor: [facility] / Plan: EMY MCO / Product Type: MCO / regulations. 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 Prolonged sitting aggravates, sometimes standing and movement help. Tub/shower transfers are difficult. Slow with cooking, cleaning, dressing, grooming. Assist for washing back) . The patient presents with impairments in ADL's, gait, independence in exercise, overall function, patient reported outcome measures, range of motion, sensation, strength, and symptom management. Patient did not complete the PROMIS? (Patient Reported Outcome Measures Information System). Prognosis for therapy is Fair due to: clinical presentation, Prognosis may be improved by good overall health status, acuteness of injury, good support system/ coping skills. Patient presents with increased lower back and L LE > R LE radicular pain, decreased lumbar ROM, weakness with her trunk and bilateral LE regions, difficulty with ambulation, ADL, and personal care tasks. The patient will benefit from skilled therapy services to meet the goals established for this plan of care as noted below. Classification Pain Mechanism Classification: Neuropathic Low Back Pain Classification: Symptom Modulation Goals for Episode of Care: established 03/01/25 Patient to be independent in home exercise program for trunk, abdominal and bilateral LE strengthening exercises in patient preferred direction to return patient to prior level of function and return to independent ambulation. Patient will decrease lower back and L LE radicular pain to no greater than 2-5 out of 10 at rest and with functional activities to allow patient to improve standing tolerance for ADLs, ambulation, sleeping, ADL ability, and personal care tasks. Patient will increase active ROM of lumbar spine to minimal limitation overall to allow pt to improve performance of ADL and to improve gait. Patient will demonstrate increase in trunk, abdominal and L LE strength to 4-4+/5 to 4+/5 during manual muscle testing in order to improve function for ADL functional tasks, transfers, prior functional tasks, and work tasks when able to be released to return to work. Perform ADL, personal care, and home management tasks and work tasks when able with decreased report of symptoms/pain in 4-6 weeks. Patient Goals: To be able to get away from the WW use and be able to get in 10 days without it. Time Frame for Goals and Treatment : 03/26/25 Planned Interventions, Frequency, and Duration: Current Frequency: 2x/week Duration: 6 weeks Total Number of Visits Planned: 12 Planned Treatment Interventions: Therapeutic exercise (44586), Neuromuscular re-education (52936), Manual therapy (45441), Therapeutic activities (01265), Self-group home management (01569), Gait Training (70247), Patient/Family/Caregiver Education PLAN FOR NEXT VISIT: Review HEP and monitor response to neutral spine positioning for lumbar stabilization and core strengthening. Patient demonstrates good understanding of plan of care and treatment. The above goals and plan of care were discussed and agreed upon by patient/family. For further details regarding this patient refer to the Physical Therapy electronically documented visit dated 03/01/2025. Provider Attestation I have reviewed the treatment plan for Ladarius Lin, [facility]# [id number] for the period of 03/01/25 -- 03/26/25, established on 03/01/2025. Signature certifies the need for therapy services. [facility] CNTHERAPYon 03-01-2025 CNTHERAPY OT/PT/Speech Visit ( [facility]MTUS) LADARIUS LIN ([id number]) 1965 F Date Time Provider Department 03/01/25 9:30 AM RUDDY CORREA [facility] Date Time Provider Department Center 03/01/2025 9:30 AM [id number], CYNTHIA*RUST Reason for Visit: PT Eval [747] Primary Visit Diagnosis:Radiculopathy, lumbar region [M54.16] Other Visit Diagnoses:Lumbar sprain, subsequent encounter [S33.5XXD] Decreased range of motion of lumbar spine [M53.86] Weakness of trunk musculature [M62.81] Weakness of both lower extremities [R29.898] Allergies As of Date: 03/01/2025 (No Known Allergies) Date Reviewed: 02/07/2025 Reviewed by: Cinda Bansal, RN - Fully Assessed Prescriptions as of 03/02/2025 - tiZANidine (ZANAFLEX) 4 mg tablet Take 1 tablet by mouth every 8 hours as needed (For spasms). - diphenhydrAMINE (BENADRYL) 25 mg capsule Take 25 mg by mouth once daily. [facility] CNOVon 02-21-2025 CNOV Office Visit ([facility]WRNC ) LADARIUS LIN ([id number]) 1965 F Date Time Provider Department 02/21/25 9:00 AM [facility] During your visit today, we recorded the following information about you: Allergies As of Date: 02/21/2025 (No Known Allergies) Date Reviewed: 02/07/2025 Reviewed by: Cinda Bansal RN - Fully Assessed Reason for Visit: Pain [78] Primary Visit Diagnosis:Sprain of ligaments of lumbar spine, initial encounter [S33.5XXA] Other Visit Diagnosis:Intervertebral disc disorders with radiculopathy, lumbar region [M51.16] Order(s):tiZANidine (ZANAFLEX) 4 mg tabletTake 1 tablet by mouth every 8 hours as needed (For spasms).Disp: 20 tabletRfl: 0 Prescriptions as of 02/21/2025 - tiZANidine (ZANAFLEX) 4 mg tablet Take 1 tablet by mouth every 8 hours as needed (For spasms). - diphenhydrAMINE (BENADRYL) 25 mg capsule Take 25 mg by mouth once daily. Problem List As Of Date: 02/21/2025 (None) Prescriptions ordered this encounter Disp Refills Start End TIZANIDINE 4 MG TABLET 20 t* 0 02/21/2025 Route: PO Sig: Take 1 tablet by mouth every 8 hours as needed (For spasms). Medications Discontinued During This Encounter Prescriptions - cyclobenzaprine (FLEXERIL) 10 mg tablet (Discontinued) Reported on 02/07/2025 Encounter Status:Closed by MARCELINO COYLE on 02/21/25 [facility] CNOVko 02-14-2025 CNOV Office Visit ([facility] ) LADARIUS LIN ([id number]) 1965 F Date Time Provider Department 02/14/25 10:00 AM [facility] During your visit today, we recorded the following information about you: Allergies As of Date: 02/14/2025 (No Known Allergies) Date Reviewed: 02/07/2025 Reviewed by: Cinda Bansal RN - Fully Assessed Reason for Visit: Pain [78] Primary Visit Diagnosis:Lumbar sprain, initial encounter [S33.5XXA] Other Visit Diagnoses:Sprain of ligaments of lumbar spine, initial encounter [S33.5XXA] Intervertebral disc disorders with radiculopathy, lumbar region [M51.16] Order(s):CONSULT TO PHYSICAL THERAPY [9032] Order #: [id number]: 1 FUTURE Prescriptions as of 02/14/2025 - diphenhydrAMINE (BENADRYL) 25 mg capsule Take 25 mg by mouth once daily. - cyclobenzaprine (FLEXERIL) 10 mg tablet Take 1 tablet by mouth three times a day as needed for up to 7 days. - cyclobenzaprine (FLEXERIL) 10 mg tablet Take 1 tablet by mouth three times a day as needed for up to 9 doses. Problem List As Of Date: 02/14/2025 (None) Encounter Status:Closed by MARCELINO COYLE on 02/14/25 [facility] HEALTH 02-07-2025 ALLIED HEALTH HNO ID: [id number] Author: CASSI REYNA RT(R) Service: Radiology Author Type: Technologist Type: Allied Health Filed: 02/07/2025 11:41 Note Text: Summary: CT SCAN - CT LUMBAR Radiology Service Progress Note PATIENT NAME: Ladarius Lin DATE OF SERVICE: February 07, 2025 TIME: 11:40 AM PATIENT IDENTITY VERIFICATION COMPLETED USING TWO (2) IDENTIFIERS: Name and Date of confirmed by patient verbally and Name and Date of confirmed by identification band. FALL SCREENING: Has the patient had 2 falls in the last year or 1 fall with injury or currently using an Ambulatory Assistive Device (Walker, Cane, Wheelchair, Crutches, etc.)? Emergency Room Patient: Screened in ED PATIENT GENDER DATA: Assigned female at . status: : No status: NO. PATIENT RELEVANT IMPLANT DATA REVIEWED: Not Applicable PATIENT PRESENTS WITH AN IMPLANTABLE OR ATTACHED CAN HANDLER: No RADIOLOGY DEPARTMENT: CT; Exam(s) Completed: Spine . Anesthesia: No PERIPHERAL IV DATA: Not applicable SIGNED BY: Minda MONTGOMERY)(CT) February 07, 2025 11:[address] [facility] CNOVon 02-07-2025 CNOV Office Visit ([facility] ) LADARIUS LIN ([id number]) 1965 F Date Time Provider Department 02/07/25 8:50 AM [facility] During your visit today, we recorded the following information about you: Temperature Pulse Respiration Blood pressure 97.5 degrees 90/minute 18/minute 148/98 Weight 68 kg Cass Cesar MD 02/07/2025 9:47 AM Signed Go to [facility] ED, spoke with Evelyn Gimenez MRI 3. Already spoke with Spine product communications manager (Dr. Radames Damon) Cass Cesar MD 02/07/2025 10:12 AM Signed [facility] Subjective Ladarius Chase Riley is a 59 year old female. Patient presents with: Back Pain: Rolling a patient felt a pop 2 days ago Back Pain The patient is a 59-year-old female with a history of HTN, presenting for evaluation of acute onset lower back pain with associated numbness, weakness, and muscle spasms. 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 - Describes a "pop" in the lower back at the time of injury. - Pain is "beyond tolerance" and radiates across the lower back, more pronounced on the left side. - Pain radiates down both legs into the feet, with associated tingling in the toes. - Denies previous similar episodes. - Reports difficulty holding own weight due to leg weakness, more pronounced on the left side. - Pain is not relieved by sitting, standing, or using a spa at home. - Denies current use of steroids; last used years ago for a herniated disc in the neck, which required surgery in 1999. Hypertension: - Reports history of elevated blood pressure, not currently on antihypertensive medication. - Expresses reluctance to start medication, stating preference to quit smoking before taking pills. - Denies history of asthma, COPD, or cancer. Review of Systems Musculoskeletal: Positive for back pain. Musculoskeletal: (+) lower back pain, (+) lower back muscle spasms Neurological: (+) bilateral leg weakness, (+) numbness radiating to legs and feet, (+) toe tingling Denies bowel or urinary incontinence, no saddle anesthesia Objective BP 148/98 Pulse 90 Temp 36.4 ?C (97.5 ?F) Resp 18 Wt 68 kg (150 lb) SpO2 98% Physical Exam General: No acute distress. Leaning forward to alleviate the pain Back: Tenderness over lower lumbar region, pain radiating across lower back. MSK/Ext: Left lower extremity weakness, left lower extremity paresthesia. Limited flexion, lateral rotation, extension due to pain. Gait-slow ambulation, antalgic with preferential weightbearing on the right DTR patellar +1; Achilles +1 1. Acute low back pain with sciatica, sciatica laterality unspecified, unspecified back pain laterality (M54.40) - Acute onset of severe low back pain with radiation to legs, bilateral lower extremity weakness (left > right), and paresthesia following a work-related lifting injury. - Ordered lumbar spine X-ray which revealed anterolisthesis of L4 on L5, anteriorly displaced by 12.8 mm. - Discussed with spine on-call Dr.Dhiego Damon and he recommended MRI through the ER. 2. Hypertension, essential (I10) - Blood pressure today 148/98 mmHg; patient has a history of untreated hypertension. - Discussed risks of uncontrolled hypertension, including stroke and myocardial infarction. - Patient declined antihypertensive medication, stating preference to quit smoking before starting medication. Differential Diagnoses - Spondylolisthesis is more likely for the following reason(s): suggested by HANDP and consistent with imaging - Radiculopathy is more likely for the following reason(s): suggested by HANDP - Degenerative disc disease is more likely for the following reason(s): suggested by HANDP and consistent with imaging - Cauda equina is less likely for the following reason(s): HANDP not suggestive Management Management of the patient was discussed with:search engine optimization consultant Discussion with search engine optimization consultant included: Dr. Radames Damon I performed an independent interpretation of the following:imaging Imaging: My interpretation is Anterolisthesis of L4 on L5 Disposition The patient was discharged. Patient agreed and understood the plan. Work note given. Procedures Referring Provider: SELF [200] Allergies As of Date: 02/07/2025 (No Known Allergies) Date Reviewed: 02/07/2025 Reviewed by: Cass Cesar MD - Fully Assessed Reason for Visit: Back Pain [12] Cmt: Rolling a patient felt a pop 2 days ago Primary Visit Diagnosis:Acute low back pain with sciatica, sciatica laterality unspecified, unspecified back pain laterality [M54.40] Other Visit Diagnoses:Does not have primary care provider [Z75.8] Hypertension, essential [I10] Order(s):ESTABLISH WI (more content not included)... Normal [facility] CT LUMBAR SPINE WO IVCONon 0 02-07-2025 CT LUMBAR SPINE WO IVCON * * *Final Report* * * DATE OF EXAM: Feb 07 2025 11:42AM [facility] 0508 - CT LUMBAR SPINE WO IVCON / PROCEDURE REASON: Low back pain, progressive neurologic deficit * * * * Physician Interpretation * * * * EXAMINATION: CT LUMBAR SPINE WO IVCON, XR LUMBAR 3V AP/LAT/L5-S1 CLINICAL HISTORY: Low back pain, progressive neurologic deficit TECHNIQUE: Spiral, high resolution axial unenhanced images were obtained from the thoracolumbar junction to the sacrum with sagittal and coronal planar reconstructions. MQ: CTLSPWO_3 CT Radiation dose: Integrated Dose-Length Product (DLP) for this visit = 550.47 mGy*cm. CT Dose Reduction Employed: Automated exposure control(AEC) and iterative recon COMPARISON: None. RESULT: Counting reference: Lumbosacral junction. For the purposes of this report, L4-5 is considered the level of the iliac crest and there are 5 lumbar-type vertebrae. Anatomic variant: Transitional S1 vertebral body. Truck Body Builder Apprentice (topogram) images: No additional findings. Alignment: Grade 1 anterolisthesis of L4 on L5. Grade 1 retrolisthesis of L5 on S1. Bone marrow /fracture: No evidence of a lytic or blastic process in the visualized spine. No evidence of acute or chronic fracture. Paraspinal soft tissues: The paraspinal soft tissues planes are maintained. A few nonobstructing 2 mm left renal calculi. Lower thoracic spine: The visualized lower thoracic bony canal and foramina are patent. L1-L2: Canal and foramina are patent. L2-L3: Canal and foramina are patent L3-L4: Posterior disc bulge without significant canal stenosis or neuroforaminal narrowing L4-L5: Posterior disc bulge with mild canal stenosis. Mild bilateral neuroforaminal narrowing. L5-S1: Posterior disc bulge with no significant canal stenosis or neuroforaminal narrowing. Sacrum and iliac wings: The visualized sacrum and iliac wings are within normal limits. Same-day 2 view lumbosacral spine radiographs: No additional findings. IMPRESSION: No acute CT or radiographic abnormality of the lumbar spine. Nonobstructing punctate left renal calculi. Degenerative changes as above. Anatomic Lumbar Variant: None. L4-5 is considered the level of the iliac crest and assume there are 5 lumbar-type vertebrae. Orthopedic Mechanic: PSCB Transcribe Date/Time: Feb 07 2025 11:54A Dictated by : JYOTI HARRISON MD This examination was interpreted and the report reviewed and electronically signed by: JYOTI HARRISON MD on Feb 07 2025 12:11PM EST [id number] [facility] ED NOTEon 02-07-2025 ED NOTE HNO ID: [id number] Author: CLIF NSEED Medic Service: ? Author Type: Slot Service Specialist and Machine Binding Folder Type: ED Notes Filed: 02/07/2025 18:33 Note Text: Bed: 45-ED Expected date: 02/07/25 Expected time: Means of arrival: Comments: [facility] ED PROV NOTEon 02-07-2025 ED PROV NOTE HNO ID: [id number] Author: DANIEL MICHAEL MD Service: ? Author Type: Physician Type: ED Provider Notes Filed: 02/07/2025 20:14 Note Text: ED Provider Note Patient Name: Ladarius Lin : 1965 SERVICE DATE: 02/07/25 History Patient presents with: Low Back Pain: Numbness and tingling that radiates down her legs into her feet. 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 Patient comes in with some low back pain after an injury at work. She was working as an [employer] and trying to pull a large resident towards her and she felt pain in her low back. She has noticed some pain shooting down her legs and into her feet with some occasional numbness but not saddle anesthesia. No bowel or bladder incontinence. Nothing that suggest cauda equina syndrome. She had gone to [facility] and they referred her here. They have talked to spine doctorBas who did recommend she come to the ED for further imaging. Patient in the ED initially had CT and then did need MRItos also. Patient says she has trouble with stronger pain medicine and said usually Flexeril and tramadol worked for her. She had tried some [id number] anti-inflammatories at home. No fever. This is a work-related injury. No past medical history on file. PAST SURGICAL HISTORY Procedure Laterality Date - TOTAL ABDOM HYSTERECTOMY N/A 2005 No family history on file. Social History[1] ALLERGIES No Known Allergies Review of Systems Constitutional: Negative for activity change, chills, diaphoresis and fever. HENT: Negative for congestion, facial swelling, sore throat and trouble swallowing. Eyes: Negative for photophobia, pain, discharge and visual disturbance. Respiratory: Negative for cough, chest tightness, shortness of breath and wheezing. Cardiovascular: Negative for chest pain, palpitations and leg swelling. Gastrointestinal: Negative for abdominal distention, abdominal pain, blood in stool, diarrhea, nausea and vomiting. Genitourinary: Negative for difficulty urinating, flank pain and frequency. Musculoskeletal: Positive for back pain. Negative for arthralgias, joint swelling, myalgias, neck pain and neck stiffness. Skin: Negative for color change and rash. Allergic/Immunologic: Negative for immunocompromised state. Neurological: Positive for numbness. Negative for dizziness, syncope, weakness and headaches. Hematological: Does not bruise/bleed easily. Psychiatric/Behavioral: Negative for behavioral problems, confusion, hallucinations and suicidal ideas. All other systems reviewed and are negative. Physical Exam Vitals [02/07/25 1117] BP Pulse Temp Temp src Resp SpO2 Weight Height 130/69 (!) 97 36.8 ?C (98.2 ?F) Oral 18 98 % 68 kg (150 lb) 1.524 m (5') Physical Exam Vitals and nursing note reviewed. Constitutional: General: She is not in acute distress. Appearance: She is not ill-appearing, toxic-appearing or diaphoretic. Comments: Nontoxic but uncomfortable appearing female bedside HENT: Head: Normocephalic and atraumatic. Nose: Nose normal. Eyes: General: Right eye: No discharge. Left eye: No discharge. Pupils: Pupils are equal, round, and reactive to light. Neck: Thyroid: No thyromegaly. Vascular: No JVD. Trachea: No tracheal deviation. Cardiovascular: Rate and Rhythm: Normal rate and regular rhythm. Heart sounds: Normal heart sounds. No murmur heard. No friction rub. No gallop. Pulmonary: Effort: Pulmonary effort is normal. No respiratory distress. Breath sounds: Normal breath sounds. Comments: No respiratory distress Abdominal: General: Bowel sounds are normal. There is no distension. Palpations: Abdomen is soft. Tenderness: There is no abdominal tenderness. There is no guarding or rebound. Comments: Benign abdomen Musculoskeletal: General: Tenderness present. No deformity. Cervical back: Normal range of motion and neck supple. No rigidity or tenderness. Comments: Patient does have some low back tenderness and spasm in the lower lumbar area. No midline bruising or crepitus. No shingles rash Skin: General: Skin is warm and dry. Findings: No erythema or rash. Neurological: General: No focal deficit present. Mental Status: She is alert and oriented to person, place, and time. Cranial Nerves: No cranial nerve deficit. Coordination: Coordination normal. Comments: Patient is able to ambulate. She is able to support her weight. Neurologically she describes some pain shooting down her leg. She does appear to have some sciatic pain. She describes some occasional numbness also. There is no saddle anesthesia. There is no evidence of any bowel or bladder incontinence. Nothing to suggest cauda equina syndrome at this time. Psychiatric: Behavior: Behavior normal. Diagnostic Testing ED Labs Ordered and Reviewed - No data to display MRI LUMBAR SPINE WO IVCON (more content not included)... Normal [facility] ED Triage Noteon 02-07-2025 ED Triage Note HNO ID: [id number] Author: CIERA BERGER PA-C Service: ? Author Type: Physician Engraver Letter Type: ED Triage Notes Filed: 02/07/2025 11:22 Note Text: ED TRIAGE PROVIDER NOTE Patient Name: Ladarius Lin Service Date: 02/07/25 BRIEF HPI: This is a 59 year old female who presents to the ED with: Low back pain. 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 Has had pain since. To the low back and radiates down bilateral legs. Does have some intermittent numbness and tingling as well. She went to [facility] and was sent here for "an MRI". She denies bowel or bladder incontinence. Denies saddle anesthesia. BRIEF EXAM: NAD Awake and Alert Non labored breathing Tenderness diffusely of the low lumbar spine both midline and paraspinally bilaterally. Strength 3 out of 5 lower extremities. Sensation intact, slightly decreased on left compared to right. INITIAL WORKUP AND DECISION MAKING: Orders Placed This Encounter CT LUMBAR SPINE WO IVCON SIGNATURE: Ciera Berger PA-C [facility] MRI LUMBAR SPINE WO IVCONon 02-07-2025 MRI LUMBAR SPINE WO IVCON * * *Final Report* * * DATE OF EXAM: Feb 07 2025 4:33PM [facility] 0303 - MRI LUMBAR SPINE WO IVCON / PROCEDURE REASON: Low back pain, cauda equina syndrome suspected * * * * Physician Interpretation * * * * EXAMINATION: MRI LUMBAR SPINE WO IVCON CLINICAL HISTORY: Low back pain, cauda equina syndrome suspected TECHNIQUE: Routine lumbosacral spine MR protocol without gadolinium. MQ: MRLSPWO_3 COMPARISON: 02/07/2025 CT RESULT: Counting reference: Lumbosacral junction. For the purposes of this report, L4-5 is considered the level of the iliac crest and assume there are 5 lumbar-type vertebrae. Anatomic variant: None. Localizer images: No additional findings. Alignment: 8 mm nodule left adrenal gland. Bone marrow signal/fracture: Edema like bone marrow signal L4-5 and L5-S1, likely degenerative. STIR hyperintense T1 hypointense lesion along the inferior endplate of L3 measuring about 1.2 cm in diameter, indeterminate. No evidence of prior fracture. Conus: The conus is within normal limits of signal intensity and morphology. Paraspinal soft tissues: Paraspinal soft tissues are within normal limits. Lower thoracic spine: Visualized lower thoracic canal and foramina are patent. L1-L2: Canal and foramina are patent. L2-L3: Canal and foramina are patent L3-L4: Facet hypertrophy. Canal and foramina are patent L4-L5: Facet hypertrophy with degenerative anterolisthesis and disc pseudobulging. Superiorly directed right subarticular disc extrusion contacts the traversing right L5 nerve root. Moderate narrowing of the spinal canal and mild bilateral neural foraminal narrowing. L5-S1: Disc bulging and facet hypertrophy. Mild crowding of the subarticular zones and otherwise patent spinal canal. Mild bilateral neural foraminal narrowing. Sacrum and iliac wings: The visualized sacrum and iliac wings are within normal limits. IMPRESSION: Degenerative changes most notable at L4-5 where there is moderate narrowing of the spinal canal and neural foramina, and a disc extrusion that contacts the right L5 nerve root. Indeterminate L3 body lesion could be a benign atypical hemangioma, however consider follow-up to assess stability as a metastatic or myeloma lesion could potentially have this appearance (or further workup as clinically directed if the patient has a history of primary malignancy). Anatomic Lumbar Variant: None. L4-5 is considered the level of the iliac crest and assume there are 5 lumbar-type vertebrae. Orthopedic Mechanic: [facility] Transcribe Date/Time: Feb 07 2025 4:41P Dictated by : DEYSI CHEN MD This examination was interpreted and the report reviewed and electronically signed by: DEYSI CHEN MD on Feb 07 2025 4:48PM EST [id number] [facility] XR LUMBAR 3V AP/LAT/L5-S1on 02-07-2025 XR LUMBAR 3V AP/LAT/L5-S1 * * *Final Report* * * DATE OF EXAM: Feb 07 2025 9:55AM [facility] [id number] - XR LUMBAR 3V AP/LAT/L5-S1 / PROCEDURE REASON: Acute low back pain with sciatica, sciatica laterality unspecified, unspecified * * * * Physician Interpretation * * * * EXAMINATION: CT LUMBAR SPINE WO IVCON, XR LUMBAR 3V AP/LAT/L5-S1 CLINICAL HISTORY: Low back pain, progressive neurologic deficit TECHNIQUE: Spiral, high resolution axial unenhanced images were obtained from the thoracolumbar junction to the sacrum with sagittal and coronal planar reconstructions. MQ: CTLSPWO_3 CT Radiation dose: Integrated Dose-Length Product (DLP) for this visit = 550.47 mGy*cm. CT Dose Reduction Employed: Automated exposure control(AEC) and iterative recon COMPARISON: None. RESULT: Counting reference: Lumbosacral junction. For the purposes of this report, L4-5 is considered the level of the iliac crest and there are 5 lumbar-type vertebrae. Anatomic variant: Transitional S1 vertebral body. Truck Body Builder Apprentice (topogram) images: No additional findings. Alignment: Grade 1 anterolisthesis of L4 on L5. Grade 1 retrolisthesis of L5 on S1. Bone marrow /fracture: No evidence of a lytic or blastic process in the visualized spine. No evidence of acute or chronic fracture. Paraspinal soft tissues: The paraspinal soft tissues planes are maintained. A few nonobstructing 2 mm left renal calculi. Lower thoracic spine: The visualized lower thoracic bony canal and foramina are patent. L1-L2: Canal and foramina are patent. L2-L3: Canal and foramina are patent L3-L4: Posterior disc bulge without significant canal stenosis or neuroforaminal narrowing L4-L5: Posterior disc bulge with mild canal stenosis. Mild bilateral neuroforaminal narrowing. L5-S1: Posterior disc bulge with no significant canal stenosis or neuroforaminal narrowing. Sacrum and iliac wings: The visualized sacrum and iliac wings are within normal limits. Same-day 2 view lumbosacral spine radiographs: No additional findings. IMPRESSION: No acute CT or radiographic abnormality of the lumbar spine. Nonobstructing punctate left renal calculi. Degenerative changes as above. Anatomic Lumbar Variant: None. L4-5 is considered the level of the iliac crest and assume there are 5 lumbar-type vertebrae. Orthopedic Mechanic: NITHIN Transcribe Date/Time: Feb 07 2025 11:54A Dictated by : JYOTI HARRISON MD This examination was interpreted and the report reviewed and electronically signed by: JYOTI HARRISON MD on Feb 07 2025 12:11PM EST [id number] Normal [facility] XR Lumbar spine 3 Viewson IMPRESSION: No acute CT or radiographic abnormality of the lumbar spine. Nonobstructing punctate left renal calculi. Degenerative changes as above. Anatomic Lumbar Variant: None. L4-5 is considered the level of the iliac crest and assume there are 5 lumbar-type vertebrae. Orthopedic Mechanic: PSCB Transcribe Date/Time: Feb 07 2025 11:54A Dictated by : JYOTI HARRISON MD This examination was interpreted and the report reviewed and electronically signed by: JYOTI HARRISON MD on Feb 07 2025 12:11PM [facility] RADIOLOGY * * *Final Report* * * DATE OF EXAM: Feb 07 2025 9:55AM [facility] [id number] - XR LUMBAR 3V AP/LAT/L5-S1 / PROCEDURE REASON: Acute low back pain with sciatica, sciatica laterality unspecified, unspecified * * * * Physician Interpretation * * * * EXAMINATION: CT LUMBAR SPINE WO IVCON, XR LUMBAR 3V AP/LAT/L5-S1 CLINICAL HISTORY: Low back pain, progressive neurologic deficit TECHNIQUE: Spiral, high resolution axial unenhanced images were obtained from the thoracolumbar junction to the sacrum with sagittal and coronal planar reconstructions. MQ: CTLSPWO_3 CT Radiation dose: Integrated Dose-Length Product (DLP) for this visit = 550.47 mGy*cm. CT Dose Reduction Employed: Automated exposure control(AEC) and iterative recon COMPARISON: None. RESULT: Counting reference: Lumbosacral junction. For the purposes of this report, L4-5 is considered the level of the iliac crest and there are 5 lumbar-type vertebrae. Anatomic variant: Transitional S1 vertebral body. Truck Body Builder Apprentice (topogram) images: No additional findings. Alignment: Grade 1 anterolisthesis of L4 on L5. Grade 1 retrolisthesis of L5 on S1. Bone marrow /fracture: No evidence of a lytic or blastic process in the visualized spine. No evidence of acute or chronic fracture. Paraspinal soft tissues: The paraspinal soft tissues planes are maintained. A few nonobstructing 2 mm left renal calculi. Lower thoracic spine: The visualized lower thoracic bony canal and foramina are patent. L1-L2: Canal and foramina are patent. L2-L3: Canal and foramina are patent L3-L4: Posterior disc bulge without significant canal stenosis or neuroforaminal narrowing L4-L5: Posterior disc bulge with mild canal stenosis. Mild bilateral neuroforaminal narrowing. L5-S1: Posterior disc bulge with no significant canal stenosis or neuroforaminal narrowing. Sacrum and iliac wings: The visualized sacrum and iliac wings are within normal limits. Same-day 2 view lumbosacral spine radiographs: No additional findings. [facility] RADIOLOGY Provider, Wyatt estrada [place] - 02/07/2025 * * *Final Report* * * DATE OF EXAM: Feb 07 2025 9:55AM RMX [id number] - XR LUMBAR 3V AP/LAT/L5-S1 / PROCEDURE REASON: Acute low back pain with sciatica, sciatica laterality unspecified, unspecified * * * * Physician Interpretation * * * * EXAMINATION: CT LUMBAR SPINE WO IVCON, XR LUMBAR 3V AP/LAT/L5-S1 CLINICAL HISTORY: Low back pain, progressive neurologic deficit TECHNIQUE: Spiral, high resolution axial unenhanced images were obtained from the thoracolumbar junction to the sacrum with sagittal and coronal planar reconstructions. MQ: [id number] CT Radiation dose: Integrated Dose-Length Product (DLP) for this visit = 550.47 mGy*cm. CT Dose Reduction Employed: Automated exposure control(AEC) and iterative recon COMPARISON: None. RESULT: Counting reference: Lumbosacral junction. For the purposes of this report, L4-5 is considered the level of the iliac crest and there are 5 lumbar-type vertebrae. Anatomic variant: Transitional S1 vertebral body. Truck Body Builder Apprentice (topogram) images: No additional findings. Alignment: Grade 1 anterolisthesis of L4 on L5. Grade 1 retrolisthesis of L5 on S1. Bone marrow /fracture: No evidence of a lytic or blastic process in the visualized spine. No evidence of acute or chronic fracture. Paraspinal soft tissues: The paraspinal soft tissues planes are maintained. A few nonobstructing 2 mm left renal calculi. Lower thoracic spine: The visualized lower thoracic bony canal and foramina are patent. L1-L2: Canal and foramina are patent. L2-L3: Canal and foramina are patent L3-L4: Posterior disc bulge without significant canal stenosis or neuroforaminal narrowing L4-L5: Posterior disc bulge with mild canal stenosis. Mild bilateral neuroforaminal narrowing. L5-S1: Posterior disc bulge with no significant canal stenosis or neuroforaminal narrowing. Sacrum and iliac wings: The visualized sacrum and iliac wings are within normal limits. Same-day 2 view lumbosacral spine radiographs: No additional findings. IMPRESSION IMPRESSION: No acute CT or radiographic abnormality of the lumbar spine. Nonobstructing punctate left renal calculi. Degenerative changes as above. Anatomic Lumbar Variant: None. L4-5 is considered the level of the iliac crest and assume there are 5 lumbar-type vertebrae. Orthopedic Mechanic: PSCB Transcribe Date/Time: Feb 07 2025 11:54A Dictated by : JYOTI HARRISON MD This examination was interpreted and the report reviewed and electronically signed by: JYOTI HARRISON MD on Feb 07 2025 12:11PM EST [facility] Radiology Study observation (narrative) [facility] XR Lumbar spine 3 ViewsOrder ed By: Ccf Provider on 02-07-[address] [facility] MSCon 10-12-2021 [facility] REPORT Normal [facility] MSC DATE OF SERVICE: CHIEF COMPLAINT: Toothache. HISTORY OF PRESENT ILLNESS: Patient complains of toothache to her left upper tooth. States it started again a couple of days ago. States increased sensitivity to hot and cold. Denies any fevers, chills, states she noticed some left maxillary facial swelling this morning, therefore, presented to the statcare. Patient states she was seen here 5 months ago for the same tooth and states she did not follow up with the dentist. PAST MEDICAL HISTORY AND SOCIAL HISTORY: As per nursing records are reviewed. MEDICATIONS AND ALLERGIES: As per nursing records are reviewed. REVIEW OF SYSTEMS: All 10 systems otherwise reviewed and found to be negative other than what is listed in HPI. PHYSICAL EXAMINATION: This is a 55-year-old female that is well developed, well nourished, in no acute distress. Vital signs per chart, including a temperature of 97.7, pulse oximetry 97%. HEENT exam: Head is normocephalic, atraumatic. Eyes are PERRLA. TMs are clear bilaterally. Nasal mucosa is pink. Septum is midline. [facility] PATIENT NAME: LADARIUS LIN [address] MEDICAL REC #: [id number] [place] [address] [facility] REPORT STATCARE PHYSICIAN No rhinorrhea. Oropharynx without hypertrophy, erythema, or exudates. Patient does have pain on palpation to her left upper 1st premolar with some gingival erythema and swelling along the gingiva of this tooth. I did offer the patient to anesthetize this area and open this, do an IandD, and patient refused. I did give her the risks and benefits of having it completed and the patient refused. Neck is unremarkable. No JVD or lymphadenopathy. No meningeal signs. Cardiac: Regular rate and rhythm. Normal S1, S2. No murmurs, rubs, or clicks. Respiratory: Lungs are clear to auscultation bilaterally. Patient was given clindamycin. Follow up with dentist at first available appointment. Rujo-bcc-cajbcik probiotics. Tylenol or Motrin as needed for pain. ER warning signs given. CLINICAL IMPRESSION: Dental abscess. Juan Alberto Major PA-C [id number] [facility] File#: [id number] [facility] PATIENT NAME: LADARIUS LIN [address] MEDICAL REC #: [id number] [place] [id number] [facility] REPORT STATCARE PHYSICIAN END OF DOCUMENT / CHANGE LOG FOLLOWS Last Edited By Elec. Signed By Juan Alberto Major PAC #[email or web address] Juan Alberto Major PAC #[email or web address] on 10/22/2021 12:39 ET on 10/22/2021 12:39 ET Revision Number - 2 Verified/Reviewed by 10/22/21 1239 SOL [facility] PATIENT NAME: LADARIUS LIN [address] [place] MEDICAL REC #: [id number] [place] [address] [facility] REPORT STATCARE PHYSICIAN Normal [facility] DATE OF SERVICE: ADDENDUM There was no trismus. Mild left maxillary facial swelling was noted on examination. Juan Alberto Major PA-C [id number] [facility] File#: [id number] END OF DOCUMENT / CHANGE LOG FOLLOWS Last Edited By Elec. Signed By Juan Alberto Major PAC #[email or web address] Juan Alberto Major #[email or web address] on 10/22/2021 12:40 ET on 10/22/2021 12:40 ET Revision Number - 2 Verified/Reviewed by 10/22/21 1240 [email or web address] [facility] PATIENT NAME: LADARIUS LIN [address] [place] MEDICAL REC #: [id number] [place] [id number] [facility] REPORT STATCARE PHYSICIAN Normal [facility] ROUTINE COVIDon 08-11-2021 SARS-CoV-2 (COVID-19) RNA EVELYNE+probe Ql (Unsp spec) Negative Normal NEGATIVE [facility] Comment on above: Order Comment: Port [place]: [facility] Result Comment: Nega tive results do not preclude SARS-CoV-2 infection and should not be used as the sole basis for patient management decisions. Negative results must be combined with clinical observations, patient history, and epidemiological information. This test has been authorized by the FDA under the Emergency Use Authorization (EUA) for use by authorized laboratories. This test was performed by PCR. Performed By: #### L 770.61989 #### [facility] LABORATORY [facility] [place] [address] [facility] REPORT Normal [facility] DATE OF SERVICE: CHIEF COMPLAINT: Cough, nasal drainage, ears feel full, chest hurts. HISTORY OF PRESENT ILLNESS: Patient states she is having cough, runny nose, congestion, sore throat that started 3 days ago. States the cough is productive of yellow phlegm. Patient states she does have a history of bronchitis and states this is her typical bronchitis. Patient states she does have some chest pain with coughing only and states her ribs are sore from coughing. Patient states she does have positive loss of taste and smell, but states she typically has this with her previous bronchitis. Denies any COVID exposures. Denies any recent travel, trauma, surgery or hormone replacement therapy. Denies any strep exposures. REVIEW OF SYSTEMS: All 10 systems otherwise reviewed and found to be negative other than that in the HPI. PHYSICAL EXAMINATION: Vital Signs: Blood pressure 160/76, pulse of 92, respirations 18, temperature of 97.7 and pulse oximetry 96% on room air. HEENT: Head is normocephalic and atraumatic. Eyes are PERRLA. TMs are clear bilaterally. Nasal mucosa is pink. Septum is midline. Some clear rhinorrhea. No sinus tenderness. Oropharynx shows some minimal erythema, no hypertrophy, exudates or [facility] PATIENT NAME: LADARIUS LIN [address] [place] MEDICAL REC #: [id number] [place] [address] [facility] REPORT STATCARE PHYSICIAN signs of strep on exam. Mucous membranes are moist. Neck: Trachea is midline. Neck is supple without JVD or lymphadenopathy. No meningeal signs. Cardiac: Regular rate and rhythm, normal S1 and S2. No murmurs, rubs or clicks. Respiratory: Lungs have some scattered expiratory wheezes, but no rales or rhonchi noted. Neurologic: Patient is alert and oriented x3. Speech is clear and appropriate. No gross or focal neurologic deficits noted. TREATMENT COURSE: Patient did undergo albuterol and Atrovent aerosol. Upon reevaluation, lungs are clear to auscultation bilaterally without wheezes, rhonchi or crackles. Did have a COVID PCR which is pending. Patient states feels much better on reevaluation. PLAN: Patient was instructed to self quarantine until we receive her COVID test back tomorrow. Patient states this is her typical bronchitis. Will be placed on a Z-Virgil to take as directed, albuterol MDI 2 puffs every 4 hours p.r.n. wheezing. Patient is allergic to PREDNISONE. Follow up with PCP for recheck in the next 3-4 days. ER warning signs given. Pyjc-ofi-cwecdyv cough, decongestant, Mucinex DM. Monitor for fevers. Off work slip given. [facility] PATIENT NAME: LADARIUS LIN [address] MEDICAL REC #: [id number] [place] [address] [facility] REPORT STATCARE PHYSICIAN CLINICAL IMPRESSION: Acute bronchitis. Juan Alberto Major PA-C [id number] [facility] File#: [id number] END OF DOCUMENT / CHANGE LOG FOLLOWS Last Edited By Fredy. Signed By Juan Alberto Major PAC #[email or web address] Juan Alberto Major #[email or web address] on 08/23/2021 11:29 ET on 08/23/2021 11:29 ET Revision Number - 2 Verified/Reviewed by 08/23/21 1129 SOL [facility] PATIENT NAME: LADARIUS LIN [address] MEDICAL REC #: [id number] [place] [address] [facility] REPORT STATCARE PHYSICIAN Normal [facility] 05-20-2021 [facility] REPORT Normal [facility] DATE OF SERVICE: SUBJECTIVE: This is a 55-year-old female who presents today complaining of left-sided facial swelling and pain. This started . She said it felt like she had sore gums up above her teeth, and then it started feeling like her sinuses were really sore. She presents now for further evaluation. ALLERGIES: 1. Prednisone. 2. Steroids. PAST MEDICAL HISTORY: Positive for arthritis, abdominal surgery, ear, nose and throat surgery. SOCIAL HISTORY: She is a smoker, does drink alcohol. FAMILY HISTORY: Positive for high blood pressure. PHYSICAL EXAMINATION: Weight is 165 pounds, blood pressure 153/92, pulse 100, respirations 19, temperature 98.6, pulse oximetry is 96% on room air. This is a 55-year-old female. HEENT: She has swelling on the left side of her face, can palpate out an abscess up above teeth 9-12, and it goes up beside the filtra to the edge of the nose, and it is headed up toward the eye, unfortunately. She has [facility] PATIENT NAME: LADARIUS LIN [address] [facility] [address] [place] MEDICAL REC #: [id number] [place] [address] [facility] REPORT STATCARE PHYSICIAN tenderness to tapping the teeth there, particularly around teeth 11 and 12. IMPRESSION: Abscess, teeth 9 through 12. PLAN: She was placed on Amoxil 875 twice a day and tramadol. Rest, fluids, finish all medicines. Follow in 7-10 days or sooner if complications or problems arise. DO GEOFFREY Fox/[id number] [facility] File#: [id number] END OF DOCUMENT / CHANGE LOG FOLLOWS Last Edited By Elec. Signed By Fifi Pillai Lisa D DO #JAQUAN on 06/01/2021 21:56 ET on 06/01/2021 21:56 ET Revision Number - 2 Verified/Reviewed by 06/01/21 2156 JAQUAN [facility] PATIENT NAME: LADARIUS LIN [address] [place] MEDICAL REC #: [id number] [place] [address] [facility] REPORT STATCARE PHYSICIAN [facility] 09-23-2018 CBL . MICRO - Microbiology PROCEDURE: Blood Culture (bacterial) [*1] SOURCE: Blood BODY SITE: COLLECTED DATE/TIME: 09/18/2018 18:12 EDT RECEIVED DATE/TIME: 09/18/2018 18:28 EDT START DATE/TIME: 09/18/2018 18:28 EDT FREE TEXT SOURCE: FINAL REPORTS Final Report [] Verified Date/Time/Personnel: 09/23/2018 18:59 EDT Blood Culture: No Growth at 5 days. PRELIMINARY REPORTS Preliminary Report [] Verified Date/Time/Personnel: 09/18/2018 19:00 EDT Culture has been received in lab and is no growth to date. Routine cultures are held for 5 days. Performing Locations *1: This test was performed at: [facility], [address] [place] [address], [place], [address]- , [facility] ([place]) Comment on above: Performed By: #### CBC, ADIFF, ANEU, GFR , CMP, TROPI #### [place] [address] CBL . MICRO - Microbiology PROCEDURE: Blood Culture (bacterial) [*1] SOURCE: Blood BODY SITE: COLLECTED DATE/TIME: 09/18/2018 18:15 EDT RECEIVED DATE/TIME: 09/18/2018 18:28 EDT START DATE/TIME: 09/18/2018 18:28 EDT FREE TEXT SOURCE: FINAL REPORTS Final Report [] Verified Date/Time/Personnel: 09/23/2018 18:59 EDT Blood Culture: No Growth at 5 days. PRELIMINARY REPORTS Preliminary Report [] Verified Date/Time/Personnel: 09/18/2018 18:59 EDT Culture has been received in lab and is no growth to date. Routine cultures are held for 5 days. Performing Locations *1: This test was performed at: [address], [address] [place] [address] ([place]) Comment on above: Performed By: #### CBC, ADIFF, ANEU, GFR , CMP, TROPI #### [place] [address] BSOon 09-22-2018 BSO . MICRO - Microbiology PROCEDURE: Culture Beta Strep Only [*1] SOURCE: Throat BODY SITE: COLLECTED DATE/TIME: 09/19/2018 04:06 EDT RECEIVED DATE/TIME: 09/19/2018 07:10 EDT START DATE/TIME: 09/19/2018 07:10 EDT FREE TEXT SOURCE: FINAL REPORTS Final Report [] Verified Date/Time/Personnel: 09/22/2018 08:25 EDT No Beta Strep isolated at 48hrs. PRELIMINARY REPORTS Preliminary Report [] Verified Date/Time/Personnel: 09/21/2018 08:20 EDT Culture results pending. Preliminary Report [] Verified Date/Time/Personnel: 09/20/2018 11:15 EDT No beta Strep isolated at 24 hours. Performing Locations *1: This test was performed at: [address], [place], [address]- , [facility] ([place]) Comment on above: Performed By: #### CBC, ADIFF, ANEU, GFR , CMP, TROPI #### [address] [address] CRPon 09-21-2018 CRP mass conc 17.30 mg/dL High <=0.80 [facility] ([place]) Comment on above: Performed By: #### CBC, ADIFF, ANEU, GFR , CMP, TROPI #### [place] [id number] CURon 09-20-2018 CUR . MICRO - Microbiology PROCEDURE: Urine Culture [*1] SOURCE: Urine, Clean Catch BODY SITE: COLLECTED DATE/TIME: 09/18/2018 18:12 EDT RECEIVED DATE/TIME: 09/18/2018 19:42 EDT START DATE/TIME: 09/18/2018 19:42 EDT FREE TEXT SOURCE: FINAL REPORTS Final Report [] Verified Date/Time/Personnel: 09/20/2018 08:16 EDT No growth at 48 hours. PRELIMINARY REPORTS Preliminary Report [] Verified Date/Time/Personnel: 09/19/2018 12:00 EDT No growth to date Performing Locations *1: This test was performed at: [facility], [address] [place] [address], [facility]- , [facility] ([place]) Comment on above: Performed By: #### CBC, ADIFF, ANEU, GFR , CMP, TROPI #### [place] [address] [id number] 09-20-2018 HIV 1/2 Ag/Ab See Below Normal NR [facility] ([place]) Comment on above: Result Comment: Non Reactive Performed By: [facility] [address] [place] [address] As400 Analyst: Jillian Charles#: [id number] Phone#: Performed By: #### C BC, ADIFF, ANEU, GFR, CMP, TROPI #### [place] [address] HIV 1/2 Antibody Test Not Indicated Normal [facility] ([place]) Comment on above: Result Comment: Performed By: [address] [address] As400 Analyst: Jillian CharlesIA#: [id number] Phone#: Performed By: #### C BC, ADIFF, ANEU, GFR, CMP, TROPI #### [place] [address] HIV Interpretation See Below Normal [facility] ([place]) Comment on above: Result Comment: Negative No evidence of HIV-1 or HIV-2 infection. Should recent infection be suspected, repeat testing may be considered 2-3 weeks after this draw. HIV Information: [place] Rev. Code 3701.243(E): This information has been disclosed to you from confidential records protected from disclosure by state law. You shall make no further disclosure of this information without the specific, written, and informed release of the individual to whom it pertains or as otherwise permitted by state law. A general authorization for the release of medical or other information is not sufficient for the purpose of the release of HIV test results or diagnoses. Performed By: [address] [address] As400 Analyst: Jillian CharlesIA#: [id number] Phone#: Performed By: #### C BC, ADIFF, ANEU, GFR, CMP, TROPI #### [place] [address] .Auto Diffon 09-19-2018 Ammonia mass conc (P) 0.80 10 3/mcL Normal 0.09-1.40 [facility] ([place]) Comment on above: Performed By: #### CBC, ADIFF, ANEU, GFR , CMP, TROPI #### [place] [address] Basophils #/vol (Bld) 0.00 10 3/mcL Normal 0.00-0.27 [facility] ([place]) Comment on above: Performed By: #### CBC, ADIFF, ANEU, GFR , CMP, TROPI #### [address] [address] Basophils/100 WBC (Bld) 0.4 % Normal 0.0-2.5 [facility] ([place]) Comment on above: Performed By: #### CBC, ADIFF, ANEU, GFR , CMP, TROPI #### [address] [address] Eosinophils #/vol (Bld) 0.10 10 3/mcL Normal 0.00-0.65 [facility] ([place]) Comment on above: Performed By: #### CBC, ADIFF, ANEU, GFR , CMP, TROPI #### [address] [address] Eosinophils/100 WBC (Bld) 1.7 % Normal 0.0-6.0 [facility] ([place]) Comment on above: Performed By: #### CBC, ADIFF, ANEU, GFR , CMP, TROPI #### [address] [address] Lymphocytes #/vol (Bld) 1.90 10 3/mcL Normal 0.90-4.32 [facility] ([place]) Comment on above: Performed By: #### CBC, ADIFF, ANEU, GFR , CMP, TROPI #### [address] [address] Lymphocytes/100 WBC (Bld) 23.0 % Normal 20.0-40.0 [facility] ([place]) Comment on above: Performed By: #### CBC, ADIFF, ANEU, GFR , CMP, TROPI #### [address] [address] Monocytes/100 WBC (Bld) 9.7 % Normal 2.0-13.0 [facility] ([place]) Comment on above: Performed By: #### CBC, ADIFF, ANEU, GFR , CMP, TROPI #### [address] [address] Neutrophils/100 WBC (Bld) 65.2 % Normal 50.0-75.0 [facility] ([place]) Comment on above: Performed By: #### CBC, ADIFF, ANEU, GFR , CMP, TROPI #### [address] [address] .GFRon 09-19-2018 GFR Non- >60 Normal [facility] ([place]) Comment on above: Result Comment: GFR Population mean for , Non- Americans Ages 20-29 = 116 mL/min/1.73 sq.m. Ages 30-39 = 107 mL/min/1.73 sq.m. Ages 40-49 = 99 mL/min/1.73 sq.m. Ages 50-59 = 93 mL/min/1.73 sq.m. Ages 60-69 = 85 mL/min/1.73 sq.m. Ages 70+ = 75 mL/min/1.73 sq.m. Chronic Kidney Disease: Less than 60 mL/min/1.73 square meters End Stage Renal Disease: Less than 15 mL/min/1.73 square meters Performed By: #### C BC, ADIFF, ANEU, GFR, CMP, TROPI #### [place] [address] GFR >60 Normal [facility] ([place]) Comment on above: Result Comment: GFR Population mean for , Non- Americans Ages 20-29 = 116 mL/min/1.73 sq.m. Ages 30-39 = 107 mL/min/1.73 sq.m. Ages 40-49 = 99 mL/min/1.73 sq.m. Ages 50-59 = 93 mL/min/1.73 sq.m. Ages 60-69 = 85 mL/min/1.73 sq.m. Ages 70+ = 75 mL/min/1.73 sq.m. Chronic Kidney Disease: Less than 60 mL/min/1.73 square meters End Stage Renal Disease: Less than 15 mL/min/1.73 square meters Performed By: #### C BC, ADIFF, ANEU, GFR, CMP, TROPI #### [address] [address] .NEUABSon 09-19-2018 Neutrophils #/vol (Bld) 5.30 10 3/mcL Normal 2.25-8.10 [facility] ([place]) Comment on above: Performed By: #### CBC, ADIFF, ANEU, GFR , CMP, TROPI #### [place] [address] BMPon 09-19-2018 Calcium mass conc 8.3 mg/dL Low 8.4-10.1 [facility] ([place]) Comment on above: Performed By: #### CBC, ADIFF, ANEU, GFR , CMP, TROPI #### [place] [address] Chloride molar conc 112 mmol/L High 98-110 [facility] ([place]) Comment on above: Performed By: #### CBC, ADIFF, ANEU, GFR , CMP, TROPI #### [place] [address] CO2 molar conc 24 mmol/L Normal 22-32 [facility] ([place]) Comment on above: Performed By: #### CBC, ADIFF, ANEU, GFR , CMP, TROPI #### [place] [address] Creatinine mass conc 0.64 mg/dL Normal 0.50-1.20 [facility] ([place]) Comment on above: Performed By: #### CBC, ADIFF, ANEU, GFR , CMP, TROPI #### [place] [address] Electrolyte Balance 6.0 mEq/L Normal 4.0-15.0 [facility] ([place]) Comment on above: Performed By: #### CBC, ADIFF, ANEU, GFR , CMP, TROPI #### [place] [address] Glucose mass conc 117 mg/dL High 70-110 [facility] ([place]) Comment on above: Performed By: #### CBC, ADIFF, ANEU, GFR , CMP, TROPI #### [place] [address] Potassium molar conc 4.0 mmol/L Normal 3.5-5.0 [facility] ([place]) Comment on above: Performed By: #### CBC, ADIFF, ANEU, GFR , CMP, TROPI #### [place] [address] Sodium molar conc 142 mmol/L Normal 136-145 [facility] ([place]) Comment on above: Performed By: #### CBC, ADIFF, ANEU, GFR , CMP, TROPI #### [place] [address] Urea nitrogen mass conc 6.0 mg/dL Low 8.0-22.0 [facility] ([place]) Comment on above: Performed By: #### CBC, ADIFF, ANEU, GFR , CMP, TROPI #### [place] [address] Urea nitrogen/Creatin ine mass ratio 9.4 ratio Low 10.0-22.0 [facility] ([place]) Comment on above: Performed By: #### CBC, ADIFF, ANEU, GFR , CMP, TROPI #### [place] [address] CBCon 09-19-2018 Erythrocyte distribution width Ratio (RBC) 13.8 % Normal 11.5-15.5 [facility] ([place]) Comment on above: Performed By: #### CBC, ADIFF, ANEU, GFR , CMP, TROPI #### [place] [address] Hematocrit Volume Fraction (Bld) 34.5 % Normal 34.0-46.0 [facility] ([place]) Comment on above: Performed By: #### CBC, ADIFF, ANEU, GFR , CMP, TROPI #### [place] [address] Hemoglobin mass conc (Bld) 11.7 G/dL Low 12.0-16.0 [facility] ([place]) Comment on above: Performed By: #### CBC, ADIFF, ANEU, GFR , CMP, TROPI #### [place] [address] MCH Entitic mass (RBC) 29.9 pg Normal 27.0-33.0 [facility] ([place]) Comment on above: Performed By: #### CBC, ADIFF, ANEU, GFR , CMP, TROPI #### [place] [address] MCHC mass conc (RBC) 34.0 G/dL Normal 32.0-36.0 [facility] ([place]) Comment on above: Performed By: #### CBC, ADIFF, ANEU, GFR , CMP, TROPI #### [place] [address] MCV Entitic volume (RBC) 87.9 fL Normal 80.0-99.0 [facility] ([place]) Comment on above: Performed By: #### CBC, ADIFF, ANEU, GFR , CMP, TROPI #### [place] [address] Platelet mean volume Entitic volume (Bld) 7.3 fL Normal 6.6-10.5 [facility] ([place]) Comment on above: Performed By: #### CBC, ADIFF, ANEU, GFR , CMP, TROPI #### [place] [address] Platelets #/vol (Bld) 234 10 3/mcL Normal 150-450 [facility] ([place]) Comment on above: Performed By: #### CBC, ADIFF, ANEU, GFR , CMP, TROPI #### [place] [address] RBC #/vol (Bld) 3.93 10 6/mcL Low 4.10-5.30 [facility] ([place]) Comment on above: Performed By: #### CBC, ADIFF, ANEU, GFR , CMP, TROPI #### [place] [address] WBC #/vol (Bld) 8.20 10 3/mcL Normal 4.50-10.80 [facility] ([place]) Comment on above: Performed By: #### CBC, ADIFF, ANEU, GFR , CMP, TROPI #### [place] [address] [address] SINUSon 09-19-[address] of the paranasal sinuses and face with intravenous contrast, sagittal and coronal reconstructions CLINICAL STATEMENT: Facial cellulitis plus concern for sinusitis COMPARISON: CT soft tissue neck 09/18/2018 FINDINGS: There is diffuse subcutaneous soft tissue edema in the fascial and zygomatic region bilaterally extending to the periorbital soft tissues. No localized fluid collection or abscess is seen. The included intracranial structures are unremarkable also. There is mild mucosal thickening in the LEFT maxillary sinus and a small 7 mm mucous retention cyst in the RIGHT maxillary sinus. There is mild mucosal thickening in the LEFT sphenoid and LEFT frontal sinus. Otherwise the paranasal sinuses are clear. There are no sinus fluid levels or bone destruction. The tympanomastoid spaces are also clear. The orbital contents and intraorbital fat are unremarkable. The parotid glands have been evaluated on the previous soft tissue neck. There is probably a mildly prominent 7 mm RIGHT intraparotid lymph node. There is moderate nasal septal deviation to the LEFT side. No significant occlusion of the frontal recess and ostiomeatal units is seen on either side. No nasal mass. The nasal turbinates are within normal limits. IMPRESSION: Minimal chronic paranasal sinus disease. Diffuse nonspecific soft tissue edema in the facial region. Left-sided nasal septal deviation. Interpreted By: Ryan Vides MD Preliminary Report By: Ryan Vides MD Electronically Signed By: Ryan Vides MD Dictated Date: 09/19/2018 6:12:45 PM Prelim Date: 09/19/2018 6:12:45 PM Sign Date: 09/19/2018 6:17:41 PM Normal [facility] ([place]) CT SOFT TISSUE NECK W/ CONTR Ajith 09-19-2018 CT SOFT TISSUE NECK W/ CONTRAST ORIGINAL CT SOFT TISSUE NECK W/ CONTRAST Clinical Statement: neck pain, swelling, redness TECHNIQUE: Multiple-row detector helical CT examination of the neck with IV contrast. Nonionic intravenous contrast material was administered per standard departmental protocol. This exam was performed according to our departmental dose optimization program, including but not limited to: automated exposure control, adjustment of the mAs and/or kVp according to patient size and/or exam, and use of an iterative reconstruction algorithm where applicable. COMPARISON: None. FINDINGS: There is mild skin thickening and subcutaneous stranding of the RIGHT neck overlying the lower portion of the parotid gland. The RIGHT platysma is minimally thickened as well. There is heterogeneity of the lower RIGHT parotid. The aerodigestive structures are within normal limits. Specifically, the nasal cavity, nasopharynx, oral cavity, oropharynx, hypopharynx, larynx, and visualized trachea and esophagus demonstrate no masses or abnormal enhancement. There are prominent sub-15 mm bilateral jugular chain lymph nodes. Otherwise no pathologically enlarged, necrotic, or otherwise abnormal lymph nodes. The LEFT parotid and bilateral submandibular glands appear within normal limits. The thyroid gland is normal in size without focal abnormality. Evaluation of the visualized portions of brain parenchyma and orbits demonstrates no abnormality. The visible paranasal sinuses and tympanomastoid cavities are predominantly clear. There is normal intravascular enhancement. Limited evaluation of the lung apices demonstrates mild centrilobular emphysema. The visualized osseous structures are within normal limits. IMPRESSION: Mild skin thickening and underlying subcutaneous stranding of the RIGHT neck at the level of the parotid, which likely reflects cellulitis. There may be underlying mild RIGHT parotiditis as well. No focal abscess collection. I have personally reviewed the images of this examination and agree with the resident's findings and interpretation. Interpreted By: Phi Lackey DO Preliminary Report By: Martinez Roger DO Electronically Signed By: Phi Lackey DO Dictated Date: 09/18/2018 10:19:23 PM Prelim Date: 09/18/2018 10:26:00 PM Sign Date: 09/18/2018 10:32:56 PM Normal [facility] ([place]) ESRon 09-19-2018 ESR Velocity (Bld) 37 mm/h High 0-30 [facility] ([place]) Comment on above: Performed By: #### CBC, ADIFF, ANEU, GFR , CMP, TROPI #### [address] [address] MGon 09-19-2018 Magnesium mass conc 2.2 mg/dL Normal 1.6-2.4 [facility] ([place]) Comment on above: Performed By: #### CBC, ADIFF, ANEU, GFR , CMP, TROPI #### [address] [address] PHOSon 09-19-2018 Phosphate mass conc 3.0 mg/dL Normal 2.5-4.5 [facility] ([place]) Comment on above: Performed By: #### CBC, ADIFF, ANEU, GFR , CMP, TROPI #### [address] [address] RESPIDon 09-19-2018 Adenovirus Not Detected Normal Not Detected [facility] ([place]) Comment on above: Performed By: #### CBC, ADIFF, ANEU, GFR , CMP, TROPI #### [address] [address] Bordetella Parapertussis Not Detected Normal Not Detected [facility] ([place]) Comment on above: Performed By: #### CBC, ADIFF, ANEU, GFR , CMP, TROPI #### [address] [address] Bordetella Pertussis Not Detected Normal Not Detected [facility] ([place]) Comment on above: Performed By: #### CBC, ADIFF, ANEU, GFR , CMP, TROPI #### [address] [address] Chlamydophila pneumoniae Not Detected Normal Not Detected [facility] ([place]) Comment on above: Performed By: #### CBC, ADIFF, ANEU, GFR , CMP, TROPI #### [address] [address] Coronavirus 229E Not Detected Normal Not Detected [facility] ([place]) Comment on above: Performed By: #### CBC, ADIFF, ANEU, GFR , CMP, TROPI #### [address] [address] Coronavirus HKU1 Not Detected Normal Not Detected [facility] ([place]) Comment on above: Performed By: #### CBC, ADIFF, ANEU, GFR , CMP, TROPI #### [address] [address] Coronavirus NL63 Not Detected Normal Not Detected [facility] ([place]) Comment on above: Performed By: #### CBC, ADIFF, ANEU, GFR , CMP, TROPI #### [address] [address] Coronavirus OC43 Not Detected Normal Not Detected [facility] ([place]) Comment on above: Performed By: #### CBC, ADIFF, ANEU, GFR , CMP, TROPI #### [address] [address] Human Metapneumovirus Not Detected Normal Not Detected [facility] ([place]) Comment on above: Performed By: #### CBC, ADIFF, ANEU, GFR , CMP, TROPI #### [address] [address] Influenza A Not Detected Normal Not Detected [facility] ([place]) Comment on above: Performed By: #### CBC, ADIFF, ANEU, GFR , CMP, TROPI #### [place] [id number] Influenza B Not Detected Normal Not Detected [facility] ([place]) Comment on above: Performed By: #### CBC, ADIFF, ANEU, GFR , CMP, TROPI #### [place] [id number] Mycoplasma pneumoniae Not Detected Normal Not Detected [facility] ([place]) Comment on above: Performed By: #### CBC, ADIFF, ANEU, GFR , CMP, TROPI #### [place] [address] Parainfluenza 1 Not Detected Normal Not Detected [facility] ([place]) Comment on above: Performed By: #### CBC, ADIFF, ANEU, GFR , CMP, TROPI #### [place] [address] Parainfluenza 2 Not Detected Normal Not Detected [facility] ([place]) Comment on above: Performed By: #### CBC, ADIFF, ANEU, GFR , CMP, TROPI #### [place] [address] Parainfluenza 3 Not Detected Normal Not Detected [facility] ([place]) Comment on above: Performed By: #### CBC, ADIFF, ANEU, GFR , CMP, TROPI #### [place] [id number] Parainfluenza 4 Not Detected Normal Not Detected [facility] ([place]) Comment on above: Performed By: #### CBC, ADIFF, ANEU, GFR , CMP, TROPI #### [place] [id number] Respiratory Syncytial Virus Not Detected Normal Not Detected [facility] ([place]) Comment on above: Performed By: #### CBC, ADIFF, ANEU, GFR , CMP, TROPI #### [place] [address] Rhinovirus/Enter ovirus Not Detected Normal Not Detected [facility] ([place]) Comment on above: Performed By: #### CBC, ADIFF, ANEU, GFR , CMP, TROPI #### [place] [address] TSHon 09-19-2018 Thyrotropin Qn 1.670 mcIU/mL Normal 0.360-3.74 0 [facility] ([place]) Comment on above: Result Comment: Please note as of 7 new pediatric reference intervals were added for this test. Performed By: #### C BC, ADIFF, ANEU, GFR, CMP, TROPI #### [place] [address] .Auto Diffon 09-18-2018 Ammonia mass conc (P) 0.90 10 3/mcL Normal 0.09-1.40 [facility] ([place]) Comment on above: Performed By: #### CBC, ADIFF, ANEU, GFR , CMP, TROPI #### [place] [address] Basophils #/vol (Bld) 0.10 10 3/mcL Normal 0.00-0.27 [facility] ([place]) Comment on above: Performed By: #### CBC, ADIFF, ANEU, GFR , CMP, TROPI #### [place] [address] Basophils/100 WBC (Bld) 0.6 % Normal 0.0-2.5 [facility] ([place]) Comment on above: Performed By: #### CBC, ADIFF, ANEU, GFR , CMP, TROPI #### [address] [address] Eosinophils #/vol (Bld) 0.10 10 3/mcL Normal 0.00-0.65 [facility] ([place]) Comment on above: Performed By: #### CBC, ADIFF, ANEU, GFR , CMP, TROPI #### [place] [address] Eosinophils/100 WBC (Bld) 0.5 % Normal 0.0-6.0 [facility] ([place]) Comment on above: Performed By: #### CBC, ADIFF, ANEU, GFR , CMP, TROPI #### [address] [address] Lymphocytes #/vol (Bld) 2.00 10 3/mcL Normal 0.90-4.32 [facility] ([place]) Comment on above: Performed By: #### CBC, ADIFF, ANEU, GFR , CMP, TROPI #### [address] [address] Lymphocytes/100 WBC (Bld) 15.9 % Low 20.0-40.0 [facility] ([place]) Comment on above: Performed By: #### CBC, ADIFF, ANEU, GFR , CMP, TROPI #### [address] [address] Monocytes/100 WBC (Bld) 7.1 % Normal 2.0-13.0 [facility] ([place]) Comment on above: Performed By: #### CBC, ADIFF, ANEU, GFR , CMP, TROPI #### [address] [address] Neutrophils/100 WBC (Bld) 75.9 % High 50.0-75.0 [facility] ([place]) Comment on above: Performed By: #### CBC, ADIFF, ANEU, GFR , CMP, TROPI #### [address] [address] .GFRon 09-18-2018 GFR >60 Normal [facility] ([place]) Comment on above: Result Comment: GFR Population mean for , Non- Americans Ages 20-29 = 116 mL/min/1.73 sq.m. Ages 30-39 = 107 mL/min/1.73 sq.m. Ages 40-49 = 99 mL/min/1.73 sq.m. Ages 50-59 = 93 mL/min/1.73 sq.m. Ages 60-69 = 85 mL/min/1.73 sq.m. Ages 70+ = 75 mL/min/1.73 sq.m. Chronic Kidney Disease: Less than 60 mL/min/1.73 square meters End Stage Renal Disease: Less than 15 mL/min/1.73 square meters Performed By: #### C BC, ADIFF, ANEU, GFR, CMP, TROPI #### [address] [address] GFR Non- >60 Normal [facility] ([place]) Comment on above: Result Comment: GFR Population mean for , Non- Americans Ages 20-29 = 116 mL/min/1.73 sq.m. Ages 30-39 = 107 mL/min/1.73 sq.m. Ages 40-49 = 99 mL/min/1.73 sq.m. Ages 50-59 = 93 mL/min/1.73 sq.m. Ages 60-69 = 85 mL/min/1.73 sq.m. Ages 70+ = 75 mL/min/1.73 sq.m. Chronic Kidney Disease: Less than 60 mL/min/1.73 square meters End Stage Renal Disease: Less than 15 mL/min/1.73 square meters Performed By: #### C BC, ADIFF, ANEU, GFR, CMP, TROPI #### [place] [id number] .NEUABSon 09-18-2018 Neutrophils #/vol (Bld) 9.50 10 3/mcL High 2.25-8.10 [facility] ([place]) Comment on above: Performed By: #### CBC, ADIFF, ANEU, GFR , CMP, TROPI #### [place] [id number] CBCon 09-18-2018 Erythrocyte distribution width Ratio (RBC) 13.7 % Normal 11.5-15.5 [facility] ([place]) Comment on above: Performed By: #### CBC, ADIFF, ANEU, GFR , CMP, TROPI #### [place] [address] Hematocrit Volume Fraction (Bld) 39.5 % Normal 34.0-46.0 [facility] ([place]) Comment on above: Performed By: #### CBC, ADIFF, ANEU, GFR , CMP, TROPI #### [place] [address] Hemoglobin mass conc (Bld) 13.2 G/dL Normal 12.0-16.0 [facility] ([place]) Comment on above: Performed By: #### CBC, ADIFF, ANEU, GFR , CMP, TROPI #### [place] [address] MCH Entitic mass (RBC) 29.4 pg Normal 27.0-33.0 [facility] ([place]) Comment on above: Performed By: #### CBC, ADIFF, ANEU, GFR , CMP, TROPI #### [place] [address] MCHC mass conc (RBC) 33.3 G/dL Normal 32.0-36.0 [facility] ([place]) Comment on above: Performed By: #### CBC, ADIFF, ANEU, GFR , CMP, TROPI #### [place] [address] MCV Entitic volume (RBC) 88.3 fL Normal 80.0-99.0 [facility] ([place]) Comment on above: Performed By: #### CBC, ADIFF, ANEU, GFR , CMP, TROPI #### [place] [address] Platelet mean volume Entitic volume (Bld) 7.4 fL Normal 6.6-10.5 [facility] ([place]) Comment on above: Performed By: #### CBC, ADIFF, ANEU, GFR , CMP, TROPI #### [place] [address] Platelets #/vol (Bld) 276 10 3/mcL Normal 150-450 [facility] ([place]) Comment on above: Performed By: #### CBC, ADIFF, ANEU, GFR , CMP, TROPI #### [place] [address] RBC #/vol (Bld) 4.47 10 6/mcL Normal 4.10-5.30 [facility] ([place]) Comment on above: Performed By: #### CBC, ADIFF, ANEU, GFR , CMP, TROPI #### [place] [address] WBC #/vol (Bld) 12.50 10 3/mcL High 4.50-10.80 [facility] ([place]) Comment on above: Performed By: #### CBC, ADIFF, ANEU, GFR , CMP, TROPI #### [place] [address] CMPon 09-18-2018 Albumin/Globulin mass ratio 1.0 {ratio} Normal 0.9-1.6 [facility] ([place]) Comment on above: Performed By: #### CBC, ADIFF, ANEU, GFR , CMP, TROPI #### [place] [address] ALP enzyme act/vol 125 U/L Normal 38-126 [facility] ([place]) Comment on above: Performed By: #### CBC, ADIFF, ANEU, GFR , CMP, TROPI #### [place] [address] Bili Total 0.3 mg/dL Normal 0.2-1.2 [facility] ([place]) Comment on above: Performed By: #### CBC, ADIFF, ANEU, GFR , CMP, TROPI #### [place] [address] Globulin mass conc (S) 3.8 G/dL Normal 1.5-3.8 [facility] ([place]) Comment on above: Performed By: #### CBC, ADIFF, ANEU, GFR , CMP, TROPI #### [place] [address] Protein mass conc 7.6 G/dL Normal 6.0-8.5 [facility] ([place]) Comment on above: Performed By: #### CBC, ADIFF, ANEU, GFR , CMP, TROPI #### [place] [address] Albumin mass conc 3.8 G/dL Normal 3.2-4.8 [facility] ([place]) Comment on above: Performed By: #### CBC, ADIFF, ANEU, GFR , CMP, TROPI #### [place] [address] ALT enzyme act/vol 54 U/L High 10-49 [facility] ([place]) Comment on above: Performed By: #### CBC, ADIFF, ANEU, GFR , CMP, TROPI #### [address] [address] AST enzyme act/vol 18 U/L Normal 8-34 [facility] ([place]) Comment on above: Performed By: #### CBC, ADIFF, ANEU, GFR , CMP, TROPI #### [address] [address] Calcium mass conc 9.3 mg/dL Normal 8.4-10.1 [facility] ([place]) Comment on above: Performed By: #### CBC, ADIFF, ANEU, GFR , CMP, TROPI #### [place] [id number] Chloride molar conc 106 mmol/L Normal 98-110 [facility] ([place]) Comment on above: Performed By: #### CBC, ADIFF, ANEU, GFR , CMP, TROPI #### [place] [id number] CO2 molar conc 23 mmol/L Normal 22-32 [facility] ([place]) Comment on above: Performed By: #### CBC, ADIFF, ANEU, GFR , CMP, TROPI #### [place] [address] Creatinine mass conc 0.66 mg/dL Normal 0.50-1.20 [facility] ([place]) Comment on above: Performed By: #### CBC, ADIFF, ANEU, GFR , CMP, TROPI #### [place] [address] Electrolyte Balance 7.0 mEq/L Normal 4.0-15.0 [facility] ([place]) Comment on above: Performed By: #### CBC, ADIFF, ANEU, GFR , CMP, TROPI #### [place] [address] Glucose mass conc 111 mg/dL High 70-110 [facility] ([place]) Comment on above: Performed By: #### CBC, ADIFF, ANEU, GFR , CMP, TROPI #### [place] [address] Potassium molar conc 3.8 mmol/L Normal 3.5-5.0 [facility] ([place]) Comment on above: Performed By: #### CBC, ADIFF, ANEU, GFR , CMP, TROPI #### [address] [address] Sodium molar conc 136 mmol/L Normal 136-145 [facility] ([place]) Comment on above: Performed By: #### CBC, ADIFF, ANEU, GFR , CMP, TROPI #### [place] [address] Urea nitrogen mass conc 7.0 mg/dL Low 8.0-22.0 [facility] ([place]) Comment on above: Performed By: #### CBC, ADIFF, ANEU, GFR , CMP, TROPI #### [place] [address] Urea nitrogen/Creatin ine mass ratio 10.6 ratio Normal 10.0-22.0 [facility] ([place]) Comment on above: Performed By: #### CBC, ADIFF, ANEU, GFR , CMP, TROPI #### [address] [address] LACon 09-18-2018 Lactic Acid Lvl 1.2 mmol/L Normal 0.2-2.0 [facility] ([place]) Comment on above: Performed By: #### LAC #### [address] [address] TROPIon 09-18-2018 Troponin I.cardiac mass conc ng/mL Normal 0.000-0.04 0 [facility] ([place]) Comment on above: Result Comment: Troponin I reference ran ges (01/31/14): 0.00-0.040 ng/mL Negative and non-diagnostic. >0.040 ng/mL Consistent with cardiac damage, increased clinical risk and possibility of myocardial infarction. Serial measurements, a rise & fall in test results, clinical history, appropriate symptoms and/or ECG changes may help assess possibility of DE. *Other non-acute coronary syndrome conditions such as CHF, myocarditis, pulmonary emboli, sepsis and cardiac surgery could result in myocardial damage and increased troponin levels. Performed By: #### C BC, ADIFF, ANEU, GFR, CMP, TROPI #### [address] [address] UAon 09-18-2018 Color Nom (U) Yellow Normal [facility] ([place]) Comment on above: Performed By: #### UA, UAMIC #### [place] [address] Glucose mass conc (U) Negative Normal Negative [facility] ([place]) Comment on above: Performed By: #### UA, UAMIC #### [place] [address] Ketones Ql (U) Negative Normal Neg-Trace [facility] ([place]) Comment on above: Performed By: #### UA, UAMIC #### [place] [address] UA Appear Clear Normal [facility] ([place]) Comment on above: Performed By: #### UA, UAMIC #### [place] [address] UA Blood Moderate Neg-Trace [facility] ([place]) Comment on above: Performed By: #### UA, UAMIC #### [place] [address] UA Leuk Est Negative Normal Negative [facility] ([place]) Comment on above: Performed By: #### UA, UAMIC #### [place] [address] UA Nitrite Negative Normal Negative [facility] ([place]) Comment on above: Performed By: #### UA, UAMIC #### [place] [address] UA pH 7.0 Normal 5.0 - 8.0 [facility] ([place]) Comment on above: Performed By: #### UA, UAMIC #### [place] [address] UA Protein 30 mg/dL Normal Negative [facility] ([place]) Comment on above: Performed By: #### UA, UAMIC #### [place] [address] UA Spec Grav 1.015 Normal [facility] ([place]) Comment on above: Performed By: #### UA, UAMIC #### [place] [address] UA Specimen Type Clean Catch Normal [facility] ([place]) Comment on above: Performed By: #### UA, UAMIC #### [place] [address] UA Urobilinogen 2.0 E.U./dL [facility] ([place]) Comment on above: Performed By: #### UA, UAMIC #### [place] [address] Urobilinogen Qn (U) Negative Normal Neg-Trace [facility] ([place]) Comment on above: Performed By: #### UA, UAMIC #### [place] [address] UAMICon 09-18-2018 RBC #/vol (U) 3-5 0-2 [facility] ([place]) Comment on above: Performed By: #### UA, UAMIC #### [place] [address] UA Bacteria Trace Negative [facility] ([place]) Comment on above: Performed By: #### UA, UAMIC #### [place] [address] UA Squam Epithelial 0-2 Normal 0-20 [facility] ([place]) Comment on above: Performed By: #### UA, UAMIC #### [place] [address] UA WBC Negative Normal 0-5 [facility] ([place]) Comment on above: Performed By: #### UA, UAMIC #### [place] [address] XR CHEST 1 VIEWon 09-18-2018 XR CHEST 1 VIEW ORIGINAL XR CHEST 1 VIEW PORTABLE AP upright TIME: 6:13 PM CLINICAL STATEMENT: tachycardia COMPARISON: 06/16/2017 FINDINGS: The cardiomediastinal contours are normal. There is no consolidation, vascular congestion, pleural effusion, or pneumothorax. Degenerative findings are noted in the spine. IMPRESSION: No acute process. I have personally reviewed the images of this examination and agree with the resident's findings and interpretation. Interpreted By: Phi Lackey DO Preliminary Report By: Martinez Roger DO Electronically Signed By: Phi Lackey DO Dictated Date: 09/18/2018 6:47:58 PM Prelim Date: 09/18/2018 6:48:25 PM Sign Date: 09/18/2018 7:12:40 PM Normal [facility] ([place]) Vital Signs Date Time Vital Sign Value Performing Clinician Faci lity 02-07-2025 08:52-0400 Body temperature 97.5 [degF] Cass Cesar MD Work Phone: [facility] 02-07-2025 08:52-0400 Body weight 68.04 kg Cass Cesar MD Work Phone: [facility] 02-07-2025 08:52-0400 Diastolic blood pressure 98 mm[Hg] Cass Cesar MD Work Phone: [facility] 02-07-2025 08:52-0400 Heart rate 90 /min Cass Cesar MD Work Phone: [facility] 02-07-2025 08:52-0400 Respiratory rate 18 /min Cass Cesar MD Work Phone: [facility] 02-07-2025 08:52-0400 SaO2% (BldA) [Mass fraction] 98 % Cass Cesar MD Work Phone: [facility] 02-07-2025 08:52-0400 Systolic blood pressure 148 mm[Hg] Cass Cesar MD Work Phone: [facility] 10-04-2023 11:53-0400 Body temperature 97.3 [degF] Marlene Alannah-Eiyasmanya CNA INSTRUCTOR.CANINE SERVICE INSTRUCTOR TRAINER Work Phone: [facility] 10-04-2023 11:53-0400 Diastolic blood pressure 94 mm[Hg] Marlene Alannah-Eiyasmanya CNA INSTRUCTOR.CANINE SERVICE INSTRUCTOR TRAINER Work Phone: [facility] 10-04-2023 11:53-0400 Heart rate 100 /min Marlenemartínez Jaffe-Eibara CNA INSTRUCTOR.CANINE SERVICE INSTRUCTOR TRAINER Work Phone: [facility] 10-04-2023 11:53-0400 Respiratory rate 17 /min Marlene Jaffe-Pareshyasmanya CNA INSTRUCTOR.CANINE SERVICE INSTRUCTOR TRAINER Work Phone: [facility] 10-04-2023 11:53-0400 SaO2% (BldA) [Mass fraction] 96 % Marlene Jaffe-Ramesha CNA INSTRUCTOR.CANINE SERVICE INSTRUCTOR TRAINER Work Phone: [facility] 10-04-2023 11:53-0400 Systolic blood pressure 160 mm[Hg] Marlene Jaffe-Pareshyasmanya CNA INSTRUCTOR.CANINE SERVICE INSTRUCTOR TRAINER Work Phone: [facility] Encounters Encounter Date Encounter Type Care Provider Facility Start: 03-24-2025 End: 03-24-2025 ambulatory RUDDY CORREA Facility:[id number] Start: 03-21-2025 End: 03-21-2025 ambulatory NANCY GASPARENTINO Facility:[id number] Start: 03-17-2025 End: 03-17-2025 ambulatory Facility:[id number] Start: 03-16-2025 End: 03-16-2025 ambulatory JOSELYN Jimenez JUAN DANIEL Facility:[id number] Start: 03-07-2025 End: 03-07-2025 ambulatory NANCY LAWSON Facility:[id number] Start: 03-04-2025 End: 03-04-2025 ambulatory Facility:[id number] Start: 03-04-2025 End: 03-04-2025 ambulatory NANCY LULU Facility:[id number] Start: 03-01-2025 End: 03-01-2025 ambulatory RUDDY CORREA Facility:[id number] Start: 02-21-2025 End: 02-21-2025 ambulatory Facility:[id number] Start: 02-14-2025 End: 02-14-2025 ambulatory Facility:[id number] Start: 02-07-2025 End: 02-07-2025 Follow-up encounter Cass Cesar MD Work Phone: [facility] Start: 02-07-2025 End: 02-07-2025 Emergency department patient visit DANIEL MICHAEL Facility:[id number] Start: 02-07-2025 End: 02-07-2025 Subsequent hospital visit by physician Patricia Thompson Work Phone: [facility] Comment on above: Acute low back pain with sciatica, sciatica laterality unspecified, unspecified back pain laterality [M54.40] Start: 02-07-2025 End: 02-07-2025 Office outpatient visit 40 minutes Cass Cesar MD [facility] Comment on above: Acute low back pain with sciatica, sciatica laterality unspecified, unspecified back pain laterality (Primary Dx); Does not have primary care provider; Hypertension, essential Start: 02-07-2025 End: 02-07-2025 ambulatory SELF Facility:[id number] Start: 10-04-2023 End: 10-04-2023 Patient encounter procedure Marlene Khalil APRN.CNP [facility] Phone: [facility] Comment on above: Muscle spasms of bot h lower extremities (Primary Dx); Does not have primary care provider Start: 10-12-2021 End: 10-12-2021 Subsequent hospital visit by physician Juan Alberto Major Work Phone: [facility] Comment on above: TOOTH PAIN/SWELLING RT SIDE Start: 10-12-2021 Patient encounter procedure Juan Alberto Major PA-C Work Phone: [facility] Start: 10-12-2021 Progress Note Juan Alberto Major PA-C (Pa-C ) Work Phone: [facility] Start: 08-09-2021 End: 08-09-2021 Subsequent hospital visit by physician Judith Provider [facility] Comment on above: PAINFUL CHEST COUGH, SORE THROAT,DRAINAGE,EARS Start: 05-21-2021 Patient encounter procedure Fifi Pillai DO Work Phone: [facility] Start: 05-21-2021 Progress Note Fifi hwang DO Work Phone: [facility] Start: 05-20-2021 End: 05-20-2021 Subsequent hospital visit by physician Fifi Pillai Work Phone: [facility] Comment on above: LT SIDE OF FACE SWOL WILLIAMS/FACIAL PAIN Start: 09-18-2018 End: 09-19-2018 Evaluation and management of inpatient NONE PHYSICIAN Facility:A Procedures Date Procedure Procedure Detail Performing Clinician Start: 02-07-2025 Radex spine lumbosac ral 2/3 views Cass Cesar MD Work Phone: Plan of Treatment Date Care Activity Detail Author Start: 11-05-2039 RSV Vaccine (1 - 1-d ose 75+ series) RSV Vaccine (1 - 1-dose 75+ series) [facility] Start: 01-24-2025 Influenza vaccination Influenza Vacc ine (#1) [facility] Start: 01-25-2024 Influenza vaccination Influenz a Vaccine (Season Ended) [facility] Start: 05-26-2023 Behavioral Health Screening Behavioral Health Screening [facility] Start: 01-24-2023 Covid-19 Vaccine ( season) Covid-19 Vaccine ( season) [facility] Start: 2014 Shingrix Vaccine (1 of 2) Shingrix V accine (1 of 2) [facility] Start: 2009 Diabetes Screening Diabetes Screenin g [facility] Start: 2009 Lipid panel Lipid Screening [facility] Start: 2009 Screening for malign ant neoplasm of colon [facility] Start: 2004 Screening for malign ant neoplasm of breast Mammogram Screening [facility] Start: 1994 Screening for malign ant neoplasm of cervix HPV Testing [facility] Start: 1985 Screening for malign ant neoplasm of cervix [facility] Start: 11-05-1983 Hepatitis B Vaccine (1 of 3 - 19+ 3-dose series) Hepatitis B Vaccine (1 of 3 - 19+ 3-dose series) [facility] Start: 11-05-1983 Pneumococcal Vaccine : 50+ (1 of 2 - PCV) Pneumococcal Vaccine: 50+ (1 of 2 - PCV) [facility] Start: 11-05-1983 Urine microalbumin profile DTaP,Tdap,Td Vaccine (1 - Tdap) [facility] Start: 1982 Anxiety Screening Anxiety Screening [facility] Start: 1982 Depression Screening Depression Scre ening [facility] Start: 1982 Hepatitis C screening Hepatitis C Sc reening [facility] Start: 1982 HIV screening HIV Screening [facility] Start: 1970 Pneumococcal vaccination Pneum ococcal Vaccine (1 of 2 - PCV) [facility] Payers Date Payer Category Payer Government (not [facility] care or Medicaid) [facility] GENERIC [id number] 2025 Unknown [id number] 2025 Unknown [id number] 2018 Self-pay 1965 Unknown [id number] Social History Date Type Detail Facility Tobacco smoking stat [facility] Tobacco smoking consumption unknown [facility] Start: 1965 Sex Assigned At Not on file [facility] Start: 10-04-2023 Tobacco smoking stat [facility] Occasional tobacco smoker [facility] History of tobacco use Cigarette Smoker [facility] Start: 10-04-2023 End: 02-08-2025 Cigarettes smoked current (pack per day) - Reported 0.[address] [facility] History of tobacco use Passive smoker [facility] Start: 10-04-2023 End: 02-07-2025 Tobacco use and exposure Smokeless tobacco non-user [facility] Start: 10-04-2023 End: 02-07-2025 Alcohol intake Current drinker of alcohol (finding) [facility] Start: 10-04-2023 End: 02-08-2025 Tobacco use panel [facility] Start: 04-06-2021 Adult Depression Screening Assessment [address] [facility] Start: 02-07-2025 Tobacco smoking stat us MOIS Smokes tobacco daily [facility] Clinical Notes 05-21-2021 to 03-24-2025 Result Encounter Note - Cass Cesar MD - 02/07/2025 9:11 PM EDTResult Encounter Note - Cass Cesar MD - 02/07/2025 9:11 PM EDTPatient Instructions Note Date & Type Note Facility 03-24-2025 Note HNO ID: [id number] Author: RUDDY CORREA PT Service: ? Author Type: Physical Therapist Type: Progress Notes Filed: 03/24/2025 11:28 Note Text: Episode Visit Count: 6 Therapist That Will Accept/Oversee The Plan Of Care: Ruddy Correa PT, NAIF Start of Care Date: 03/01/25 Onset Date: 02/05/25 Plan of Care Certification Date: 03/24/25 Next Certification Due Date: 05/13/25 Patient Identified by Name and Date of : Yes REHABILITATION AND SPORTS THERAPY PHYSICAL THERAPY PROGRESS REPORT PLAN OF CARE UPDATE: Assessment: Ladarius Lin demonstrates no improvement in bed mobility, sitting, standing, walking in the house, walking in the community, stair negotiation, working, sleeping, driving, cleaning, cooking, dressing, and grooming. The patient has worsened with regard to bilateral lower back and bilateral LE radicular symptoms, lumbar ROM, and with ability to complete ADL and work tasks since her return to work on 03/22/2025. Patient continues to present with impairments in ADL's, gait, independence in exercise, overall function, patient reported outcome measures, posture, range of motion, sensation, strength, and symptom management that interfere with sleeping, bed mobility, walking in the house, walking in the community, sitting, stair negotiation, driving, working, cooking, cleaning, dressing, grooming, standing (Unable to lie on either side, lying in supine wakes her up as she is not used to lying on her back to sleep. Needed assist for doffing work clothes to get into bathtub on 03/22/25.) . Current prognosis is Fair due to: clinical presentation, limited tolerance to activity, Prognosis may be improved by good overall health status, acuteness of injury. Patient is to contact Nancy Lawson PA-C, for earlier follow up and to determine what the next step is for the patient. The patient will benefit from continued skilled therapy services to meet the updated goals for this plan of care as noted below. Goals for Episode of Care: addressed 03/24/2025 Patient to be independent in home exercise program for trunk, abdominal and bilateral LE strengthening exercises in patient preferred direction to return patient to prior level of function and return to independent ambulation. (Unable to complete HEP since returning to work) Patient will decrease lower back and L LE radicular pain to no greater than 2-5 out of 10 at rest and with functional activities to allow patient to improve standing tolerance for ADLs, ambulation, sleeping, ADL ability, and personal care tasks. (Ongoing. Patient rates her pain at 10 out of 10 today and has been this level since returning to work) Patient will increase active ROM of lumbar spine to minimal limitation overall to allow pt to improve performance of ADL and to improve gait. (Continued limitation and worse lumbar ROM extension) Patient will demonstrate increase in trunk, abdominal and L LE strength to 4-4+/5 to 4+/5 during manual muscle testing in order to improve function for ADL functional tasks, transfers, prior functional tasks, and work tasks when able to be released to return to work. Ongoing. Noting decrease in bilateral LE and trunk strength this date) Perform ADL, personal care, and home management tasks and work tasks when able with decreased report of symptoms/pain in 4-6 weeks. (Continuing difficulty with ADL tasks, personal care, work activities) Patient Goals: To be able to get away from the WW use and be able to get in 10 days without it. Time Frame for Goals and Treatment : 05/13/25 Planned Interventions, Frequency, and Duration: 2x/week, 6 weeks Total Number of Visits Planned: 12 (No further [facility] C9 approval at this time. Patient is to contact the therapy office with any updates.) Patient to be seen for Therapeutic exercise (45094), Neuromuscular re-education (08828), Manual therapy (70889), Therapeutic activities (55696), Self-group home management (86206), Gait Training (22163), Patient/Family/Caregiver Education PLAN FOR NEXT VISIT: Patient is to contact Nancy Lawson PA-C's office to determine what her next step is as her BWC C9 is and her pain level is 10 out of 10. SUBJECTIVE: Patient reports that she saw Nancy Lawson PA-C, on 03/17/2025 and he sent her back to work with restrictions with a primarily sit down job only, allowed to change positions for comfort, using a WW as needed for ambulation, and no lifting > 10#. Patient returned to work on 03/22/2025 for a 10 hour shift and then had a second 10 hour shift on 03/23/2025. 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 Then patient indicates that she was to file and could not do this in sitting. 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 [facility] 03-21-2025 Note HNO ID: [id number] Author: TYRONE PADRON PTA Service: ? Author Type: Sliver Cutter Type: Progress Notes Filed: 03/21/2025 11:04 Note Text: Episode Visit Count: 5 Therapist That Will Accept/Oversee The Plan Of Care: Ruddy Correa PT, NAIF Start of Care Date: 03/01/25 Onset Date: 02/05/25 Plan of Care Certification Date: 03/01/25 Next Certification Due Date: 03/26/25 Patient Identified by Name and Date of : Yes REHABILITATION AND SPORTS THERAPY PHYSICAL THERAPY TREATMENT NOTE ASSESSMENT: Ladarius Lin tolerated the session with increased symptoms and numbness/tingling L le. She demonstrated difficulty with laying in supine with le's straight and held on SLR's and supine marching ex . The patient will continue to benefit from ongoing skilled physical therapy to progress toward set goals. PLAN FOR NEXT VISIT: Continue to progress lumbar stabilization/neutral spine as pt tolerates SUBJECTIVE: Pt reports that her pain has increased over the weekend. She has been performing her ex's but her pain is increasing. She notes that much of her pain is in the R SIJ lately Pain: Pain Pain Level: 8 Pain Location: Low Back/Lumbar Spine - Left, Low Back/Lumbar Spine - Right, Buttocks - Left, Buttocks - Right, Leg - Left, Calf - Left, Foot - Left Description: Burning, Tingling Frequency: Continuous Post Treatment Pain Post Treatment Pain Level: Worse (N/T L le) Post Treatment Pain Location: Low Back/Lumbar Spine - Left, Low Back/Lumbar Spine - Right, Buttocks - Left, Buttocks - Right, Leg - Left, Calf - Left, Foot - Left OBJECTIVE MEASURES WITH LEVEL OF FUNCTION: No objective measure taken this date. TREATMENT: Therapeutic Exercise: 1: Hooklying abdominal sets 2 x 15 2: Pelvic tilt 3 x 10 3: Supine gluteal squeeze 2 x 15 w/5 sec hold 4: Hooklying resisted hip abduction with lumbar stabilization and orange band 2 x 15 5: Hooklying hip add sets with lumbar stabilization 2 x 15 6: Hooklying marching w/orange band 2 x 15 (held on this activity) 7: Slr's bilat x 10 each (held on this activity) 8: Supine heel walks x 5 laps 9: Hamstring stretch with strap x 3 reps w/ 15 sec hold each LE 10: 3 way stretch w/blue ball x 3 ea w/ 15 sec hold 11: Seated yellow ball push/abdominal isometric 2 x 15 w/3 sec hold 12: Recumbent stepper manual L1 x 5 minutes with moist heat to low back Skilled Intervention: Patient was educated in proper exercise technique and purpose for exercises. Skilled judgment was used in selection of appropriate interventions. Correct performance of therapeutic exercises was facilitated with verbal and visual cuing. Billing Therapeutic Exercise Treatment Minutes: 47 Skilled Treatment Time Minutes (timed and untimed codes): 47 Total Session Time (minutes): 52 Session Start Time : 1001 Session Stop Time : 1053 Time spent on recumbent stepper not included in billed treatment time. Hot pack applied to ls region with patient in sitting on the recumbent stepper for 5 minutes at the end of the session. Hot pack time not included in billed treatment time. Tyrone Padron PTA [facility] 03-16-2025 Note HNO ID: [id number] Author: JOSELYN FRANCES PTA Service: ? Author Type: Sliver Cutter Type: Progress Notes Filed: 03/16/2025 10:35 Note Text: Episode Visit Count: 4 Therapist That Will Accept/Oversee The Plan Of Care: Ruddy Correa PT, NAIF Start of Care Date: 03/01/25 Onset Date: 02/05/25 Plan of Care Certification Date: 03/01/25 Next Certification Due Date: 03/26/25 Patient Identified by Name and Date of : Yes REHABILITATION AND SPORTS THERAPY PHYSICAL THERAPY TREATMENT NOTE ASSESSMENT: Ladarius Lin tolerated the session with no issues. She demonstrated good tolerance to change in position with exercises to hooklying as patient reported being more comfortable in this position. Patient tolerated addition of recumbent stepper and hamstring stretches this date without increased discomfort. The patient will continue to benefit from ongoing skilled physical therapy to progress toward set goals. PLAN FOR NEXT VISIT: Continue to progress lumbar stabilization/neutral spine as pt tolerates SUBJECTIVE: Patient reported that she saw Dr. Desai and her told her that she has spinal stenosis and he recommends pain management for and epidural and he has started the process through [facility] for this. She reported that she will follow up with him on Apr 25. Pain: Pain Pain Level: 6 Pain Location: Low Back/Lumbar Spine - Left, Low Back/Lumbar Spine - Right, Buttocks - Left, Buttocks - Right, Leg - Left, Calf - Left, Foot - Left Description: Burning, Numbness, Tingling, Spasm Frequency: Continuous Post Treatment Pain Post Treatment Pain Level: No Change OBJECTIVE MEASURES WITH LEVEL OF FUNCTION: No objective measures taken this date. TREATMENT: Therapeutic Exercise: 1: Hooklying abdominal sets 2 x 15 2: Pelvic tilt 3 x 10 3: Supine gluteal squeeze 2 x 15 w/5 sec hold (Increased reps) 4: Hooklying resisted hip abduction with lumbar stabilization and orange band 2 x 15 5: Hooklying hip add sets with lumbar stabilization 2 x 15 6: Hooklying marching w/orange band 2 x 15 7: Slr's bilat x 10 each 8: Supine heel walks x 5 laps 9: *Hamstring stretch with strap x 3 reps w/ 15 sec hold each LE 10: 3 way stretch w/blue ball x 3 ea w/ 15 sec hold 11: Seated ball push/abdominal isometric 2 x 15 w/3 sec hold 12: Recumbent stepper manual L1 x 5 minutes with moist heat to low back Skilled Intervention: Patient was educated in proper exercise technique and purpose for exercises. Reviewed and educated patient on additions/changes for home exercise program as above (*). Skilled judgment was used in selection of appropriate interventions. Provided written instruction for home exercise program to facilitate proper performance and compliance. Home Exercise Program Assigned: 1: Access Code: [email or web address] URL: [email or web address] Date: 03/16/2025 Prepared by: JOSELYN FRANCES Exercises - Supine Hamstring Stretch with Strap - 1-2 x daily - 7 x weekly - 1 sets - 3 reps - 15 sec hold Billing Therapeutic Exercise Treatment Minutes: 46 Skilled Treatment Time Minutes (timed and untimed codes): 46 Total Session Time (minutes): 51 Session Start Time : 932 Session Stop Time : 1023 Time spent on recumbent stepper not included in billed treatment time. Hot pack applied to low back with patient while on stepper for 5 minutes at the end of the session. Hot pack time not included in billed treatment time. Joselyn Frances PTA [facility] 03-07-2025 Note HNO ID: [id number] Author: TYRONE PADRON PTA Service: ? Author Type: Sliver Cutter Type: Progress Notes Filed: 03/07/2025 11:42 Note Text: Episode Visit Count: 3 Therapist That Will Accept/Oversee The Plan Of Care: Ruddy Correa PT, NAIF Start of Care Date: 03/01/25 Onset Date: 02/05/25 Plan of Care Certification Date: 03/01/25 Next Certification Due Date: 03/26/25 Patient Identified by Name and Date of : Yes REHABILITATION AND SPORTS THERAPY PHYSICAL THERAPY TREATMENT NOTE ASSESSMENT: Ladarius Lin tolerated the session with increased symptoms and expected muscle soreness. She demonstrated difficulty with some of the ex's, requiring cues for execution. She demonstrated improvements in tolerance with increased reps for most of the ex's and the addition of heel walks and SLR's. The patient will continue to benefit from ongoing skilled physical therapy to progress toward set goals. PLAN FOR NEXT VISIT: Continue to progress lumbar stabilization/neutral spine as pt tolerates SUBJECTIVE: Pt reports that her pain is still at a level of 7/10 and it has been going between the L and R sides. She cites that she is able to stand a little longer lately. She saw Rosemary Lawson last week and he is keeping her off of work. He will see her on March 17 and she will see Dr. Jey Desai on March 14. Pain: Pain Pain Level: 7 Pain Location: Low Back/Lumbar Spine - Left, Low Back/Lumbar Spine - Right, Buttocks - Left, Buttocks - Right, Leg - Left, Calf - Left, Foot - Left Frequency: Continuous Post Treatment Pain Post Treatment Pain Level: 8 Post Treatment Pain Location: Low Back/Lumbar Spine - Left, Low Back/Lumbar Spine - Right, Buttocks - Left, Buttocks - Right, Leg - Left, Calf - Left, Foot - Left OBJECTIVE MEASURES WITH LEVEL OF FUNCTION: No objective measure taken this date. TREATMENT: Therapeutic Exercise: 1: Seated abdominal sets 2 x 15 (increased reps) 2: Seated hip add sets with lumbar stabilization 2 x 15 (increased reps) 3: Seated resisted hip abduction with lumbar stabilization and orange band 2 x 15 (increased reps) 4: Seated marching w/orange band 2 x 15 (increased reps) 5: Seated ball push/abdominal isometric 2 x 15 w/3 sec hold (increased reps) 6: 3 way stretch w/blue ball x 3 ea w/10 sec hold 7: Supine gluteal squeeze 2 x 10 w/5 sec hold (increased reps) 8: Pelvic tilt 3 x 10 (increased reps) 9: *Supine heel walks x 5 laps 10: *Slr's bilat x 10 each Skilled Intervention: Patient was educated in proper exercise technique and purpose for exercises. Skilled judgment was used in selection of appropriate interventions. Provided written instruction for home exercise program to facilitate proper performance and compliance. Correct performance of therapeutic exercises was facilitated with verbal and visual cuing. Home Exercise Program Assigned: 1: *Supine heel walks x 5 laps 2: *Slr's bilat x 10 each 3: Access Code: [email or web address] URL: [email or web address] Date: 03/07/2025 Prepared by: TYRONE PADRON Exercises - Supine heel walk - 2 x daily - 7 x weekly - 1 sets - 5 reps - Active Straight Leg Raise with Quad Set - 2 x daily - 7 x weekly - 2 sets - 10 reps - 2 seconds hold - Active Straight Leg Raise with Quad Set (Mirrored) - 2 x daily - 7 x weekly - 2 sets - 10 reps - 2 seconds hold Billing Therapeutic Exercise Treatment Minutes: 38 Skilled Treatment Time Minutes (timed and untimed codes): 38 Total Session Time (minutes): 38 Session Start Time : 1047 Session Stop Time : [address] [facility] 03-04-2025 Note HNO ID: [id number] Author: TYRONE PADRON PTA Service: ? Author Type: Sliver Cutter Type: Progress Notes Filed: 03/04/2025 10:58 Note Text: Program_ID:[id number] Access Code: [email or web address] URL: [email or web address] Date: 03-04-2025 Prepared By: RUDDY CORREA Program Notes Exercises - Seated March with Resistance - 2 x daily - 7 x weekly - 3 sets - 10 reps - Hooklying Gluteal Sets - 2 x daily - 7 x weekly - 2 sets - 10 reps - 5 second hold - Supine Posterior Pelvic Tilt - 2 x daily - 7 x weekly - 3 sets - 10 reps - [address] [facility] 03-04-2025 Note HNO ID: [id number] Author: TYRONE PADRON PTA Service: ? Author Type: Sliver Cutter Type: Progress Notes Filed: 03/04/2025 11:35 Note Text: Episode Visit Count: 2 Therapist That Will Accept/Oversee The Plan Of Care: Ruddy Correa PT, NAIF Start of Care Date: 03/01/25 Onset Date: 02/05/25 Plan of Care Certification Date: 03/01/25 Next Certification Due Date: 03/26/25 Patient Identified by Name and Date of : Yes REHABILITATION AND SPORTS THERAPY PHYSICAL THERAPY TREATMENT NOTE ASSESSMENT: Ladarius Lin tolerated the session with expected muscle soreness and no increased discomfort despite progression of ex's/activities. She demonstrated difficulty with some of the ex's, requiring cues to keep in a tolerable range and improvements in progression of reps for some of the ex's. Pt tolerated the addition of seated marching,supine gluteal squeeze and pelvic tilts as well as 3 way lumbar stretch and seated ball press/abdominal isometric. The patient will continue to benefit from ongoing skilled physical therapy to progress toward set goals. PLAN FOR NEXT VISIT: Continue to progress lumbar stabilization/neutral spine as pt tolerates SUBJECTIVE: Pt reports that her pain is aggravated today. Her discomfort is mostly R ls region and she also cites that her L le remains weak and she feels that "it doesn't want to hold my weight". Pain: Pain Pain Level: 7 Pain Location: Low Back/Lumbar Spine - Left, Low Back/Lumbar Spine - Right, Buttocks - Left, Buttocks - Right, Leg - Left, Calf - Left, Foot - Left Description: Burning, Tingling Frequency: Continuous Post Treatment Pain Post Treatment Pain Level: No Change Post Treatment Pain Location: Low Back/Lumbar Spine - Left, Low Back/Lumbar Spine - Right, Buttocks - Left, Buttocks - Right, Leg - Left, Calf - Left, Foot - Left OBJECTIVE MEASURES WITH LEVEL OF FUNCTION: No objective measure taken this date. TREATMENT: Therapeutic Exercise: 1: Seated abdominal sets 2 x 10 (increased reps) 2: Seated hip add sets with lumbar stabilization 2 x 10 (increased reps) 3: Seated resisted hip abduction with lumbar stabilization and orange band 2 x 10 (increased reps) 4: *Seated marching w/orange band 2 x 10 5: Seated ball push/abdominal isometric 2 x 10 w/3 sec hold 6: 3 way stretch w/blue ball x 3 ea w/10 sec hold 7: *Supine gluteal squeeze x 10 w/5 sec hold 8: *Pelvic tilt 2 x 10 Skilled Intervention: Patient was educated in proper exercise technique and purpose for exercises. Skilled judgment was used in selection of appropriate interventions. Provided written instruction for home exercise program to facilitate proper performance and compliance. Correct performance of therapeutic exercises was facilitated with verbal, visual, and tactile cuing. Home Exercise Program Assigned: 1: *Seated marching w/orange band 2 x 10 2: *Supine gluteal squeeze x 10 w/5 sec hold 3: *Pelvic tilt 2 x 10 4: Access Code: [email or web address] URL: [email or web address] Date: 03/04/2025 Prepared by: TYRONE PADRON Exercises - Seated March with Resistance - 2 x daily - 7 x weekly - 3 sets - 10 reps - Hooklying Gluteal Sets - 2 x daily - 7 x weekly - 2 sets - 10 reps - 5 second hold - Supine Posterior Pelvic Tilt - 2 x daily - 7 x weekly - 3 sets - 10 reps - 3 second hold Billing Therapeutic Exercise Treatment Minutes: 50 Skilled Treatment Time Minutes (timed and untimed codes): 50 Total Session Time (minutes): 50 Session Start Time : 1015 Session Stop Time : [address] [facility] 03-01-2025 Note HNO ID: [id number] Author: RUDDY CORREA PT Service: ? Author Type: Physical Therapist Type: Progress Notes Filed: 03/01/2025 10:20 Note Text: Program_ID:[id number] Access Code: [email or web address] URL: [email or web address] Date: 03-01-2025 Prepared By: RUDDY CORREA Program Notes Exercises - Seated Transversus Abdominis Bracing - 2-3 x daily - 7 x weekly - 3 sets - 10 reps - Seated Hip Adduction Isometrics with Ball - 2-3 x daily - 7 x weekly - 1-2 sets - 10 reps - Seated Hip Abduction with Resistance - 2-3 x daily - 7 x weekly - 1-2 sets - [address] [facility] 03-01-2025 Note HNO ID: [id number] Author: RUDDY CORREA PT Service: ? 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 Prolonged sitting aggravates, sometimes standing and movement help. Tub/shower transfers are difficult. Slow with cooking, cleaning, dressing, grooming. Assist for washing back) . The patient presents with impairments in ADL's, gait, independence in exercise, overall function, patient reported outcome measures, range of motion, sensation, strength, and symptom management. Patient did not complete the PROMIS? (Patient Reported Outcome Measures Information System). Prognosis for therapy is Fair due to: clinical presentation, Prognosis may be improved by good overall health status, acuteness of injury, good support system/ coping skills. Patient presents with increased lower back and L LE > R LE radicular pain, decreased lumbar ROM, weakness with her trunk and bilateral LE regions, difficulty with ambulation, ADL, and personal care tasks. The patient will benefit from skilled therapy services to meet the goals established for this plan of care as noted below. Classification Pain Mechanism Classification: Neuropathic Low Back Pain Classification: Symptom Modulation Goals for Episode of Care: established 03/01/25 Patient to be independent in home exercise program for trunk, abdominal and bilateral LE strengthening exercises in patient preferred direction to return patient to prior level of function and return to independent ambulation. Patient will decrease lower back and L LE radicular pain to no greater than 2-5 out of 10 at rest and with functional activities to allow patient to improve standing tolerance for ADLs, ambulation, sleeping, ADL ability, and personal care tasks. Patient will increase active ROM of lumbar spine to minimal limitation overall to allow pt to improve performance of ADL and to improve gait. Patient will demonstrate increase in trunk, abdominal and L LE strength to 4-4+/5 to 4+/5 during manual muscle testing in order to improve function for ADL functional tasks, transfers, prior functional tasks, and work tasks when able to be released to return to work. Perform ADL, personal care, and home management tasks and work tasks when able with decreased report of symptoms/pain in 4-6 weeks. Patient Goals: To be able to get away from the WW use and be able to get in 10 days without it. Time Frame for Goals and Treatment : 03/26/25 Planned Interventions, Frequency, and Duration: Current Frequency: 2x/week Duration: 6 weeks Total Number of Visits Planned: 12 Planned Treatment Interventions: Therapeutic exercise (66494), Neuromuscular re-education (12529), Manual therapy (67009), Therapeutic activities (98931), Self-group home management (31795), Gait Training (67323), Patient/Family/Caregiver Education PLAN FOR NEXT VISIT: Review HEP and monitor response to neutral spine positioning for lumbar stabilization and core strengthening. Patient demonstrates good understanding of plan of care and treatment. The above goals and plan of care were discussed and agreed upon by patient/family. 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 She finished her shift that day. She came to [facility] on [facility]07[facility] and was referred to the ED that same day. She had lumbar x-rays, a lumbar CT scan, and lumbar MRI that showed L4-L5 DDD and disc extrusion contacting the R L5 nerve root. She was given Decadron and was taken off work. Dr. Damon was also contacted regarding patient's symptoms. She will see Nancy Lawson PA-C tomorrow. She will see Dr. Desai on 03/14/2025. Patient was referred to physical therapy at this time and arrived to physical therapy walking with a WW that she has been using since she left the ED as the L MARTÍNEZ gives out on her. Patient indicates that she was told that the L5 nerve root is being compressed and was told that she has questionable spots on the spine. [place] (more content not included)... [facility] 02-07-2025 Progress note Formatting of this note might be differe nt from the original. X-ray done at the urgent care showed anterolisthesis. Upon discussion with the spine surgeon on-call advised to have an MRI done at the ER. CT scan was done at the ER [facility] 02-07-2025 Miscellaneous Notes Formatting of this note might be differe nt from the original. X-ray done at the urgent care showed anterolisthesis. Upon discussion with the spine surgeon on-call advised to have an MRI done at the ER. CT scan was done at the ER documented in this encounter [facility] 02-07-2025 Note HNO ID: [id number] Author: SHANTANU GOLDSMITH RT(R) Service: ? Author Type: Technologist Type: Progress Notes Filed: 02/07/2025 16:28 Note Text: Summary: mri Radiology Service Progress Note PATIENT NAME: Ladarius Lin DATE OF SERVICE: February 07, 2025 TIME: 4:27 PM PATIENT IDENTITY VERIFICATION COMPLETED USING TWO (2) IDENTIFIERS: Name and Date of confirmed by patient verbally and Name and Date of confirmed by identification band. FALL SCREENING: Has the patient had 2 falls in the last year or 1 fall with injury or currently using an Ambulatory Assistive Device (Walker, Cane, Wheelchair, Crutches, etc.)? No PATIENT GENDER DATA: Assigned female at . status: : No status: NO. PATIENT RELEVANT IMPLANT DATA REVIEWED: Yes PATIENT PRESENTS WITH AN IMPLANTABLE OR ATTACHED CAN HANDLER: No RADIOLOGY DEPARTMENT: MR; Exam(s) Completed: Spine: Lumbar spine. Anesthesia: No. Aromatherapy Administered: No PERIPHERAL IV DATA: Not applicable SIGNED BY: ULISES Roman) February 07, 2025 4:[address] [facility] 02-07-2025 Note HNO ID: [id number] Author: HIRO MCDANIELS RT(R) Service: ? Author Type: Technologist Type: Progress Notes Filed: 02/07/2025 12:41 Note Text: Summary: MRI RADIOLOGY SERVICE PROGRESS NOTE DATE OF SERVICE: February 07, 2025 TIME OF SERVICE: 1238 EVENT: EXAM/PROCEDURE NOT COMPLETED - NEED COMPLETED MRI SAFETY SCREENING FORM ADDITIONAL EVENT DETAILS: N/A SIGNATURE: RT Angelito(R) PATIENT NAME: Ladarius Lin DATE: February 07, 2025 TIME: 12:39 PM PAGER/CONTACT #: [facility] 02-07-2025 Note HNO ID: [id number] Author: CASS CESAR MD Service: ? Author Type: Physician Type: Progress Notes Filed: 02/07/2025 10:12 Note Text: [facility] Subjective Ladarius Lin is a 59 year old female. Patient presents with: Back Pain: Rolling a patient felt a pop 2 days ago Back Pain The patient is a 59-year-old female with a history of HTN, presenting for evaluation of acute onset lower back pain with associated numbness, weakness, and muscle spasms. 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 - Describes a "pop" in the lower back at the time of injury. - Pain is "beyond tolerance" and radiates across the lower back, more pronounced on the left side. - Pain radiates down both legs into the feet, with associated tingling in the toes. - Denies previous similar episodes. - Reports difficulty holding own weight due to leg weakness, more pronounced on the left side. - Pain is not relieved by sitting, standing, or using a spa at home. - Denies current use of steroids; last used years ago for a herniated disc in the neck, which required surgery in 1999. Hypertension: - Reports history of elevated blood pressure, not currently on antihypertensive medication. - Expresses reluctance to start medication, stating preference to quit smoking before taking pills. - Denies history of asthma, COPD, or cancer. Review of Systems Musculoskeletal: Positive for back pain. Musculoskeletal: (+) lower back pain, (+) lower back muscle spasms Neurological: (+) bilateral leg weakness, (+) numbness radiating to legs and feet, (+) toe tingling Denies bowel or urinary incontinence, no saddle anesthesia Objective BP 148/98 Pulse 90 Temp 36.4 ?C (97.5 ?F) Resp 18 Wt 68 kg (150 lb) SpO2 98% Physical Exam General: No acute distress. Leaning forward to alleviate the pain Back: Tenderness over lower lumbar region, pain radiating across lower back. MSK/Ext: Left lower extremity weakness, left lower extremity paresthesia. Limited flexion, lateral rotation, extension due to pain. Gait-slow ambulation, antalgic with preferential weightbearing on the right DTR patellar +1; Achilles +1 1. Acute low back pain with sciatica, sciatica laterality unspecified, unspecified back pain laterality (M54.40) - Acute onset of severe low back pain with radiation to legs, bilateral lower extremity weakness (left > right), and paresthesia following a work-related lifting injury. - Ordered lumbar spine X-ray which revealed anterolisthesis of L4 on L5, anteriorly displaced by 12.8 mm. - Discussed with spine on-call Dr.Dhiego Damon and he recommended MRI through the ER. 2. Hypertension, essential (I10) - Blood pressure today 148/98 mmHg; patient has a history of untreated hypertension. - Discussed risks of uncontrolled hypertension, including stroke and myocardial infarction. - Patient declined antihypertensive medication, stating preference to quit smoking before starting medication. Differential Diagnoses - Spondylolisthesis is more likely for the following reason(s): suggested by HANDP and consistent with imaging - Radiculopathy is more likely for the following reason(s): suggested by HANDP - Degenerative disc disease is more likely for the following reason(s): suggested by HANDP and consistent with imaging - Cauda equina is less likely for the following reason(s): HANDP not suggestive Management Management of the patient was discussed with:search engine optimization consultant Discussion with search engine optimization consultant included: Dr. Radames Damon I performed an independent interpretation of the following:imaging Imaging: My interpretation is Anterolisthesis of L4 on L5 Disposition The patient was discharged. Patient agreed and understood the plan. Work note given. Procedures [facility] 02-07-2025 History of Present illness Narrative Formatting of this note might be differe nt from the original. [facility] Subjective Ladarius Lin is a 59 year old female. Patient presents with: Back Pain: Rolling a patient felt a pop 2 days ago Back Pain The patient is a 59-year-old female with a history of HTN, presenting for evaluation of acute onset lower back pain with associated numbness, weakness, and muscle spasms. 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 - Describes a "pop" in the lower back at the time of injury. - Pain is "beyond tolerance" and radiates across the lower back, more pronounced on the left side. - Pain radiates down both legs into the feet, with associated tingling in the toes. - Denies previous similar episodes. - Reports difficulty holding own weight due to leg weakness, more pronounced on the left side. - Pain is not relieved by sitting, standing, or using a spa at home. - Denies current use of steroids; last used years ago for a herniated disc in the neck, which required surgery in 1999. Hypertension: - Reports history of elevated blood pressure, not currently on antihypertensive medication. - Expresses reluctance to start medication, stating preference to quit smoking before taking pills. - Denies history of asthma, COPD, or cancer. Review of Systems Musculoskeletal: Positive for back pain. Musculoskeletal: (+) lower back pain, (+) lower back muscle spasms Neurological: (+) bilateral leg weakness, (+) numbness radiating to legs and feet, (+) toe tingling Denies bowel or urinary incontinence, no saddle anesthesia Objective BP 148/98 Pulse 90 Temp 36.4 C (97.5 F) Resp 18 Wt 68 kg (150 lb) SpO2 98% Physical Exam General: No acute distress. Leaning forward to alleviate the pain Back: Tenderness over lower lumbar region, pain radiating across lower back. MSK/Ext: Left lower extremity weakness, left lower extremity paresthesia. Limited flexion, lateral rotation, extension due to pain. Gait-slow ambulation, antalgic with preferential weightbearing on the right DTR patellar +1; Achilles +1 1. Acute low back pain with sciatica, sciatica laterality unspecified, unspecified back pain laterality (M54.40) - Acute onset of severe low back pain with radiation to legs, bilateral lower extremity weakness (left > right), and paresthesia following a work-related lifting injury. - Ordered lumbar spine X-ray which revealed anterolisthesis of L4 on L5, anteriorly displaced by 12.8 mm. - Discussed with spine on-call Dr.Dhiego Damon and he recommended MRI through the ER. 2. Hypertension, essential (I10) - Blood pressure today 148/98 mmHg; patient has a history of untreated hypertension. - Discussed risks of uncontrolled hypertension, including stroke and myocardial infarction. - Patient declined antihypertensive medication, stating preference to quit smoking before starting medication. Differential Diagnoses - Spondylolisthesis is more likely for the following reason(s): suggested by H&P and consistent with imaging - Radiculopathy is more likely for the following reason(s): suggested by H&P - Degenerative disc disease is more likely for the following reason(s): suggested by H&P and consistent with imaging - Cauda equina is less likely for the following reason(s): H&P not suggestive Management Management of the patient was discussed with:search engine optimization consultant Discussion with search engine optimization consultant included: Dr. Radames Damon I performed an independent interpretation of the following:imaging Imaging: My interpretation is Anterolisthesis of L4 on L5 Disposition The patient was discharged. Patient agreed and understood the plan. Work note given. Procedures documented in this encounter [facility] 02-07-2025 Instructions Cass Cesar MD - 02/07/2025 9:47 AM EDT Go to [facility] ED, spoke with Evelyn Needs MRI 3. Already spoke with Spine product communications manager (Dr. Radames Damon) documented in this encounter [facility] 02-07-2025 History of Present illness Narrative Formatting of this note might be differe nt from the original. Radiology Service Progress Note PATIENT NAME: Ladarius Lin DATE OF SERVICE: February 07, 2025 TIME: 9:15 AM PATIENT IDENTITY VERIFICATION COMPLETED USING TWO (2) IDENTIFIERS: Name and Date of confirmed by patient verbally. FALL SCREENING: Has the patient had 2 falls in the last year or 1 fall with injury or currently using an Ambulatory Assistive Device (Walker, Cane, Wheelchair, Crutches, etc.)? No PATIENT GENDER DATA: Assigned female at . status: : No status: NO. PATIENT RELEVANT IMPLANT DATA REVIEWED: Not Applicable PATIENT PRESENTS WITH AN IMPLANTABLE OR ATTACHED CAN HANDLER: No RADIOLOGY DEPARTMENT: General X-ray: Exam(s) Completed: Spine X-Ray(s): Lumbar AP / LAT / L5-S1 PERIPHERAL IV DATA: Not applicable SIGNED BY: RT Ksenia(R) February 07, 2025 9:15 AM documented in this encounter [facility] 02-07-2025 Note HNO ID: [id number] Author: DENTON HURD RT(R) Service: ? Author Type: Technologist Type: Progress Notes Filed: 02/07/2025 09:15 Note Text: Radiology Service Progress Note PATIENT NAME: Ladarius Lin DATE OF SERVICE: February 07, 2025 TIME: 9:15 AM PATIENT IDENTITY VERIFICATION COMPLETED USING TWO (2) IDENTIFIERS: Name and Date of confirmed by patient verbally. FALL SCREENING: Has the patient had 2 falls in the last year or 1 fall with injury or currently using an Ambulatory Assistive Device (Walker, Cane, Wheelchair, Crutches, etc.)? No PATIENT GENDER DATA: Assigned female at . status: : No status: NO. PATIENT RELEVANT IMPLANT DATA REVIEWED: Not Applicable PATIENT PRESENTS WITH AN IMPLANTABLE OR ATTACHED CAN HANDLER: No RADIOLOGY DEPARTMENT: General X-ray: Exam(s) Completed: Spine X-Ray(s): Lumbar AP / LAT / L5-S1 PERIPHERAL IV DATA: Not applicable SIGNED BY: RT Ksenia(R) February 07, 2025 9:[address] [facility] 10-04-2023 History of Present illness Narrative Formatting of this note is different fro m the original. Images from the original note were not included. Ladarius Lin is a 57 year old female who presents with Pain ("From neck to knees" /S/p injury Friday /), Injury (Patient states she was trying to keep the garage door open /States the door weighs appox 500lbs /Friday /Patient states she has called off work this whole week and does a pretty physical job /), and spasms (Patients states everything is having spasms. Legs, arm, back, buttocks, everywhere /) 57-year-old female presents today with pain from Friday after trying to hold up a garage door. Patient states that she missed work and she needs a note because she is not ready to go back to work yet. States she is still having muscle spasms and has tried [id number] and warm moist heat. Patient states she is feeling better she is just not quite they are ready to go back to work. Patient has history of cervical surgery over 25 years ago. Injury No past medical history on file. There is no problem list on file for this patient. Current Outpatient Medications Medication Sig Dispense Refill cyclobenzaprine (FLEXERIL) 10 mg tablet Take 1 tablet by mouth three times a day as needed for up to 9 doses. 9 tablet 0 No current facility-administered medications for this visit. Social History Tobacco Use Smoking status: Some Days Packs/day: .5 Types: Cigarettes Passive exposure: Current Smokeless tobacco: Never Vaping Use Vaping Use: Never used Substance Use Topics Alcohol use: Yes Alcohol/week: 3.0 standard drinks of alcohol Types: 3 Cans of beer per week Drug use: Never Alcohol Use: Approximately 1.8 oz/week [which includes 3 Cans of beer per week] Tobacco Use: 0.5 packs/day Types: Cigarettes No family history on file. Review of Systems Musculoskeletal: Positive for back pain. All other systems reviewed and are negative. BP 160/94 Pulse 100 Temp (Src) 97.3 (Temporal) Resp 17 SpO2 96% Physical Exam Vitals and nursing note reviewed. Constitutional: Appearance: Normal appearance. She is normal weight. Cardiovascular: Rate and Rhythm: Normal rate. Pulses: Normal pulses. Pulmonary: Effort: Pulmonary effort is normal. Musculoskeletal: Arms: Comments: Patient is slow to move with intentional purpose. Tenderness palpated throughout neck shoulder mid back low back. No bony tenderness noted. No numbness or tingling. Bilateral straight leg raise negative. Vascular status intact sensation intact. Weightbearing. Neurological: Mental Status: She is alert. ASSESSMENT/PLAN: 1. Muscle spasms of both lower extremities - ICD9: 728.85, ICD10: M62.838 (primary diagnosis) - CYCLOBENZAPRINE 10 MG TABLET Continue with [id number] methods you have been using. Acetaminophen/Tylenol not to exceed 3000mg in a 24 hour period and or Ibuprofen/Motrin 600mg every 6 hours not to exceed 2400mg in a 24 hour period if no history of gastrointestinal bleeding or ulcers for pain/discomfort of fever. 2. Does not have primary care provider - ICD9: V49.89, ICD10: Z75.8 - ESTABLISH WITH PRIMARY CARE - NEW PATIENT Work note provided discussed with patient cannot write for more than 3 days as this would be FMLA. If worsening of condition numbness or tingling, fever/chill please go to ER for evaluation. Marlene Khalil APRN.CNP This note was partially generated using [employer]viral voice recognition system, and there may be some incorrect words, spellings, and punctuation that were not noted in checking the note before saving. documented in this encounter [facility] 10-04-2023 Instructions Marlene Khalil APRN.CNP - 10/04/2023 12:53 PM EDT Acetaminophen/Tylenol not to exceed 3000mg in a 24 hour period and or Ibuprofen/Motrin 600mg every 6 hours not to exceed 2400mg in a 24 hour period if no history of gastrointestinal bleeding or ulcers for pain/discomfort of fever. If any worsening of symptoms would refer to emergency room for evaluation. documented in this encounter [facility] 10-12-2021 History of Present illness Narrative DATE OF SERVICE: 10/12/2021 ADDENDUM There was no trismus. Mild left maxillary facial swelling was noted on examination. CANDIDO [id number] SSI File#: [id number] END OF DOCUMENT / CHANGE LOG FOLLOWS Last Edited By Fredy. Signed By Juan Alberto Major PAC #[id number] Juan Alberto Major PAC #[id number] on 10/22/2021 12:40 ET on 10/22/2021 12:40 ET Revision Number - 2 Verified/Reviewed by 10/22/21 1240 [facility] PATIENT NAME: LADARIUS LIN [address] [facility] [address] [place] MEDICAL REC #: [id number] [place] [address] [facility] RE[facility] DATE OF SERVICE: 10/12/2021 CHIEF COMPLAINT: Toothache. HISTORY OF PRESENT ILLNESS: Patient complains of toothache to her left upper tooth. States it started again a couple of days ago. States increased sensitivity to hot and cold. Denies any fevers, chills, states she noticed some left maxillary facial swelling this morning, therefore, presented to the [facility]. Patient states she was seen here 5 months ago for the same tooth and states she did not follow up with the dentist. PAST MEDICAL HISTORY AND SOCIAL HISTORY: As per nursing records are reviewed. MEDICATIONS AND ALLERGIES: As per nursing records are reviewed. REVIEW OF SYSTEMS: All 10 systems otherwise reviewed and found to be negative other than what is listed in HPI. PHYSICAL EXAMINATION: This is a 55-year-old female that is well developed, well nourished, in no acute distress. Vital signs per chart, including a temperature of 97.7, pulse oximetry 97%. HEENT exam: Head is normocephalic, atraumatic. Eyes are PERRLA. TMs are clear bilaterally. Nasal mucosa is pink. Septum is midline. [facility] PATIENT NAME: LADARIUS LIN [address] [place] MEDICAL REC #: [id number] [place] [id number] [facility] REPORT STATCARE PHYSICIAN No rhinorrhea. Oropharynx without hypertrophy, erythema, or exudates. Patient does have pain on palpation to her left upper 1st premolar with some gingival erythema and swelling along the gingiva of this tooth. I did offer the patient to anesthetize this area and open this, do an I&D, and patient refused. I did give her the risks and benefits of having it completed and the patient refused. Neck is unremarkable. No JVD or lymphadenopathy. No meningeal signs. Cardiac: Regular rate and rhythm. Normal S1, S2. No murmurs, rubs, or clicks. Respiratory: Lungs are clear to auscultation bilaterally. Patient was given clindamycin. Follow up with dentist at first available appointment. Gszk-mum-vlvbgsb probiotics. Tylenol or Motrin as needed for pain. ER warning signs given. CLINICAL IMPRESSION: Dental abscess. CANDIDO Rubi/[id number] SSI File#: [id number] [facility] PATIENT NAME: LADARIUS LIN Viviane [place] MEDICAL REC #: [id number] [place] [address] [facility] REPORT STATCARE PHYSICIAN END OF DOCUMENT / CHANGE LOG FOLLOWS Last Edited By Elec. Signed By Juan Alberto Major PAC #[email or web address] Juan Alberto Major PAC #[email or web address] on 10/22/2021 12:39 ET on 10/22/2021 12:39 ET Revision Number - 2 Verified/Reviewed by 10/22/21 1239 SOL [facility] PATIENT NAME: LADARIUS LIN Viviane [place] MEDICAL REC #: [id number] [place] [address] [facility] REPORT STATCARE PHYSICIAN documented in this encounter [facility] 05-21-2021 History of Present illness Narrative DATE OF SERVICE: 05/20/2021 SUBJECTIVE: This is a 55-year-old female who presents today complaining of left-sided facial swelling and pain. This started . She said it felt like she had sore gums up above her teeth, and then it started feeling like her sinuses were really sore. She presents now for further evaluation. ALLERGIES: 1. Prednisone. 2. Steroids. PAST MEDICAL HISTORY: Positive for arthritis, abdominal surgery, ear, nose and throat surgery. SOCIAL HISTORY: She is a smoker, does drink alcohol. FAMILY HISTORY: Positive for high blood pressure. PHYSICAL EXAMINATION: Weight is 165 pounds, blood pressure 153/92, pulse 100, respirations 19, temperature 98.6, pulse oximetry is 96% on room air. This is a 55-year-old female. HEENT: She has swelling on the left side of her face, can palpate out an abscess up above teeth 9-12, and it goes up beside the filtra to the edge of the nose, and it is headed up toward the eye, unfortunately. She has tenderness to tapping the teeth there, particularly around teeth 11 and 12. IMPRESSION: Abscess, teeth 9 through 12. PLAN: She was placed on Amoxil 875 twice a day and tramadol. Rest, fluids, finish all medicines. Follow in 7-10 days or sooner if complications or problems arise. DO GEOFFREY [id number] SSI File#: [id number] END OF DOCUMENT / CHANGE LOG FOLLOWS Last Edited By Elec. Signed By Fifi Pillai Lisa D DO #[email or web address] on 06/01/2021 21:56 ET on 06/01/2021 21:56 ET Revision Number - 2 ^^^ Verified/Reviewed by 06/01/21 2156 JAQUAN [facility] PATIENT NAME: LADARIUS LIN [address] [place] MEDICAL REC #: [id number] [place] [address] [facility] REPORT STATCARE PHYSICIAN documented in this encounter [facility] Evaluation note Diagnosis Muscle spasms of both lower extremities- Primary Does not have primary care provider [facility] Diagnosis Acute low back pain with sciatica, sciatica laterality unspecified, unspecified back pain laterality- Primary Does not have primary care provider Hypertension, essential Unspecified essential hypertension Acute low back pain with sciatica, sciatica laterality unspecified, unspecified back pain laterality [facility] Diagnosis Acute low back pain with sciatica, sciatica laterality unspecified, unspecified back pain laterality documented in this encounter [facility] for visit Narrative* Diagnostic Procedure Only (Routine) - Closed Specialty Diagnoses / Procedures Referred By Isa t Referred To Contact XR IMAGING Diagnoses Acute low back pain with sciatica, sciatica laterality unspecified, unspecified back pain laterality Procedures XR LUMBAR GENERAL 3V AP/LAT/L5-S1 RADEX SPINE LUMBOSACRAL 2/3 VIEWS Cass Cesar MD [address] [place] [address] Phone: tel: fax: [place] [address] Referral ID Status Reason Start Date Expiration Date V isits Requested Visits Authorized [id number] Closed Auto-Generate d Referral 02/07/2025 03/09/2026 [address] [facility] Summary Purpose Family History No Family History Records FoundNo Family History Records FoundNo Family History Records Found Advance Directives No Advanced Directives Records FoundNo Advanced Directives Records FoundNo Advanced Directives Records Found Reason for Referral Specialty Diagnoses / Procedures Referred By Isa t Referred To Contact Diagnoses Does not have primary care provider Procedures ESTABLISH WITH PRIMARY CARE NEW PATIENT OFFICE/OUTPATIENT NEW HIGH MDM 60 MINUTES Marlene Khalil APRN.[employer] [address] [place] [address] Referral ID Status Reason Start Date Expiration Date Visits Requested Visits Authorized [id number] Authorized PCP Requested Referral 10/04/2023 10/03/2024 1 1 Additional Source Comments INFORMATION SOURCE (unrecogn ized section and content) DATE CREATED AUTHOR 09/29/2018 [facility] ([place]) DATE CREATED AUTHOR AUTHOR'S ORGANIZ ATION 10/22/2021 [facility] [place] DATE CREATED AUTHOR AUTHOR'S ORGANIZ ATION 03/29/2025 [facility] Source Comments (unrecognize d section and content) In the event this informatio n is protected by the Federal Confidentiality of Alcohol and Drug Abuse Patient Records regulations: The Federal rules restrict any use of the information to criminally investigate or prosecute any alcohol or drug abuse patient.[facility] the event this information is protected by the Federal Confidentiality of Alcohol and Drug Abuse Patient Records regulations: The Federal rules restrict any use of the information to criminally investigate or prosecute any alcohol or drug abuse patient.[facility] the event this information is protected by the Federal Confidentiality of Alcohol and Drug Abuse Patient Records regulations: The Federal rules restrict any use of the information to criminally investigate or prosecute any alcohol or drug abuse patient.[facility] the event this information is protected by the Federal Confidentiality of Alcohol and Drug Abuse Patient Records regulations: The Federal rules restrict any use of the information to criminally investigate or prosecute any alcohol or drug abuse patient.[facility] the event this information is protected by the Federal Confidentiality of Alcohol and Drug Abuse Patient Records regulations: The Federal rules restrict any use of the information to criminally investigate or prosecute any alcohol or drug abuse patient.[facility] the event this information is protected by the Federal Confidentiality of Alcohol and Drug Abuse Patient Records regulations: The Federal rules restrict any use of the information to criminally investigate or prosecute any alcohol or drug abuse patient.[facility] the event this information is protected by the Federal Confidentiality of Alcohol and Drug Abuse Patient Records regulations: The Federal rules restrict any use of the information to criminally investigate or prosecute any alcohol or drug abuse patient.[facility] the event this information is protected by the Federal Confidentiality of Alcohol and Drug Abuse Patient Records regulations: The Federal rules restrict any use of the information to criminally investigate or prosecute any alcohol or drug abuse patient.[facility] the event this information is protected by the Federal Confidentiality of Alcohol and Drug Abuse Patient Records regulations: The Federal rules restrict any use of the information to criminally investigate or prosecute any alcohol or drug abuse patient.[facility] Reason for Visit (unrecogniz ed section and content) Reason Comments Pain "From neck to knees" S/p injury Friday Injury Patient states she w as trying to keep the garage door open States the door weighs appox 500lbs Friday Patient states she has called off work this whole week and does a pretty physical job spasms Patients states ever ything is having spasms. Legs, arm, back, buttocks, everywhere Reason Comments Back Pain Rolling a patient fe lt a pop 2 days ago Specialty Diagnoses / Procedures Referred By Isa sumner Referred To Contact Internal Medicine / URGENT CARE CLINIC Diagnoses LOWER BACK PAIN Procedures URGENT CARE Self [facility] [address] [place] [address] Phone: tel: fax: Referral ID Status Reason Start Date Expiration Date V isits Requested Visits Authorized [id number] Closed Patient Cleared - Qualified 100% FAS 02/07/2025 05/08/2025 99 99 FOR RECORDS PERTAINING TO PATIENTS WHO ARE OR HAVE BEEN ENROLLED IN A CHEMICAL DEPENDENCY/SUBSTANCEABUSE PROGRAM, SOME INFORMATION MAY BE OMITTED. This clinical summary was aggregated from multiple sources. Caution should be exercised in using it in the provision of clinical care. This summary normalizes information from multiple sources, and as a consequence, information in this document may materially change the coding, format and clinical context of patient data. In addition, data may be omitted in some cases. CLINICAL DECISIONS SHOULD BE BASED ON THE PRIMARY CLINICAL RECORDS. [employer] provides no warranty or guarantee of the accuracy or completeness of information in this document.
[2025-04-03] MEDS: Piperacil/Tazobactam 3.375 GM in 0.9% Normal Saline (50mL MB+) 50 ML IV (19:43)
[2025-04-03 21:49] LABS: Internal QC Validated? YES +Cl - CLEAR BKGD; Pregnancy, Urine Negative Negative; Record Kit Lot#,Urine Preg 0000980607
[2025-04-03] MEDS: 0.9% Saline Lock 10 ML Syringe IV (22:21)
[2025-04-04] VITALS (15 sets, daily range): BP systolic 121–158; BP diastolic 68–92; PULSE 73–106; RESP 15–18; TEMP 36.2–36.8; O2SAT 94–98; BMI 25.9
[2025-04-04] MEDS: 0.9% Normal Saline (1000mL) 1,000 ML 150 ML IV ×3 (01:47→18:14)
[2025-04-04 03:53] LABS: Hematocrit 35.6 % (37-47); Hemoglobin 12.7 g/dL (12.0-15.0); Mean Corp Hgb Conc 35.7 g/dL (32-36); Mean Corpuscular Volume 84.2 fL (81-99); Mean Platelet Vol. 9.5 fl (6.2-12.0); Platelet Count 332 K/mm3 (150-450); RBC Distribution Width CV 15.9 % (11.6-14.6); RBC Distribution Width SD 47.6 fl (35.1-43.9); Red Blood Count 4.23 M/mm3 (4.2-5.4); White Blood Count 8.4 K/mm3 (4.4-11.0)
[2025-04-04 04:33] LABS: AST(SGOT) 217 U/L (<=31); Alanine Aminotransfer ALT/SGPT 488 U/L (<=34); Albumin, Serum 3.6 g/dL (3.4-4.8); Alkaline Phosphatase 587 U/L (35-104); Anion Gap 11 (5-15); BUN 8 mg/dL (4-19); BUN/Creat Ratio 14.3 RATIO (10-20); Calcium,Total 9.5 mg/dL (7.6-11.0); Carbon Dioxide 21.2 mmol/L (21.0-32.0); Chloride 106 mmol/L (98-108); Estimated Creatinine Clearance 86.79 ml/min (50-250); Globulin 2.6 g/dL (2.2-4.2); Glucose 101 mg/dL (70-99); Potassium 3.5 mmol/L (3.3-5.1)
--- NOTE | 2025-04-04 05:00 | EKG12_ITS ---
Test Reason : PRE-OP Blood Pressure : */* mmHG Vent. Rate : 82 BPM Atrial Rate : 82 BPM P-R Int : 142 ms QRS Dur : 88 ms QT Int : 394 ms P-R-T Axes : 60 63 36 degrees QTcB Int : 460 ms Normal sinus rhythm Cannot rule out Anterior infarct , age undetermined Abnormal ECG No previous ECGs available Confirmed by Hebert Oreilly ([id number]), offline editor GLENDA LIMA ([id number]) on 04/04/2025 1:07:18 PM Referred By: FRIEND Confirmed By: Hebert Oreilly
[2025-04-04] MEDS: Piperacil/Tazobactam 3.375 GM in 0.9% Normal Saline (50mL MB+) 50 ML IV ×3 (05:45→20:46)
--- NOTE | 2025-04-04 09:47 | CASEMGMT ---
Dx: RUQ pain with jaundice LACE: 1 6-Clicks: 24 Medical record reviewed and patient evaluated for identification of discharge planning needs. Based on this review, at this time criteria are not present to indicate a need for discharge planning. Will remain available to assist with discharge planning needs as identified or requested.
--- NOTE | 2025-04-04 09:57 | PCM.PN.HOSP ---
Reason for Visit Chief Complaint: Abdominal pain with jaundice Objective Data Objective Data Vital Signs: Vital Signs Temp Pulse Resp BP Pulse Ox O2 Del Method 98.2 F 73 18 145/75 H 97 Room Air 04/04/25 08:15 04/04/25 08:15 04/04/25 08:15 04/04/25 08:15 04/04/25 08:15 04/04/25 08:16 Oxygen Delivery Method Room Air Weight: 133 lb 2.547 oz Body Mass Index (BMI) 25.9 Intake & Output: Intake and Output for Last 24 Hours 04/02/25 04/03/25 04/04/25 23:59 23:59 23:59 Intake Total 1595 / 1595 2049 Balance 1595 / 1595 2049 Lab / Micro Data 04/04/25 03:26 04/04/25 03:26 Labs: Laboratory Results - last 24 hr 04/03/25 12:15: WBC 10.3, RBC 5.05, Hgb 14.8, Hct 42.5, MCV 84.2, MCH 29.3, MCHC 34.8, RDW Std Deviation 47.9 H, RDW Coeff of Lissette 15.7 H, Plt Count 380, MPV 9.7, Immature Gran % (Auto) 0.300, Neut % (Auto) 68.7, Lymph % (Auto) 22.8, Sabine % (Auto) 5.8, Eos % (Auto) 1.7, Baso % (Auto) 0.7, Absolute Neuts (auto) 7.1, Absolute Lymphs (auto) 2.34, Nucleated RBC % 0, 04/03/25 12:20: Urine Color Yellow, Urine Clarity Clear, Urine pH 7.0, Ur Specific [place] 1.010, Urine Protein 30 H, Urine Glucose (UA) Normal, Urine Ketones Negative, Urine Occult Blood 10 H, Urine Nitrite Negative, Urine Bilirubin 3 H, Urine Urobilinogen 4 H, Ur Leukocyte Esterase 25 H, Urine RBC 0 SEEN, Urine WBC 0-5 SEEN, Ur Squamous Epith Cells 0-5 SEEN, Urine Bacteria 0 SEEN, Urine Mucus 0 SEEN 04/03/25 13:00: Sodium 137, Potassium 3.8, Chloride 104, Carbon Dioxide 18.9 L, Anion Gap 14, BUN 11, Creatinine 0.59 L, Estim Creat Clear Calc 86.39, Est GFR (MDRD) Non-Af 103, BUN/Creatinine Ratio 18.5, Glucose 114 H, Calcium 10.0, Total Bilirubin 8.79 H, AST 270 H, ALT 586 H, Alkaline Phosphatase 634 H, Total Protein 7.5, Albumin 4.2, Globulin 3.3, Albumin/Globulin Ratio 1.3, Lipase 28 04/03/25 21:26: Urine Test Negative 04/04/25 03:26: WBC 8.4, RBC 4.23, Hgb 12.7, Hct 35.6 L, MCV 84.2, MCH 30.0, MCHC 35.7, RDW Std Deviation 47.6 H, RDW Coeff of Lissette 15.9 H, Plt Count 332, MPV 9.5, Sodium 138, Potassium 3.5, Chloride 106, Carbon Dioxide 21.2, Anion Gap 11, BUN 8, Creatinine 0.56 L, Estim Creat Clear Calc 86.79, Est GFR (MDRD) Non-Af 104, BUN/Creatinine Ratio 14.3, Glucose 101 H, Calcium 9.5, Total Bilirubin 7.92 H, AST 217 H, ALT 488 H, Alkaline Phosphatase 587 H, Total Protein 6.2, Albumin 3.6, Globulin 2.6, Albumin/Globulin Ratio 1.3 Radiography Diagnostic Testing: Radiology Impression Gallbladder Ultrasound 04/03/25 13:36 IMPRESSION: 1. Hepatomegaly with diffuse hepatic steatosis. 2. Findings suggest extensive gallbladder adenomyomatosis. Reading Location: [facility] Abdomen/Pelvis CT 04/03/25 14:45 IMPRESSION: Abnormal gallbladder with intra and extrahepatic biliary dilatation. Choledocholithiasis and cholecystitis not excluded. Reading Location: [facility] Physical Exam Narrative Seen and examined Patient complain of jaundice for couple of days about 3 days and abdominal pain, RUQ for about 1 week. No prior history of liver or gallbladder or pancreatic disease. No family history of hepatobiliary or pancreatic cancer. No fever. Physical exam General: Alert, Oriented x3, Cooperative HEENT: Icterus present. Atraumatic, PERRLA, EOMI, Normocephalic. Oral: No Gingival or Mucosal Lesions/ Ulcerations Neck: Supple, No JVD, Negative Carotid Bruits Chest wall/Lungs: Air entry diminished in bilateral lung bases. No crepitation/rhonchi Cardiovascular: Regular rate and rhythm, Normal S1,S2, No M/G/R Abdomen: Bowel Sounds Present, Soft, mild tenderness in RUQ. Non-Distended : No dysuria. No renal angle tenderness. No suprapubic tenderness. Extremities: No edema, Capillary Refill Less than 3 Seconds Skin: No rashes, No breakdown Musculoskeletal: No Tenderness to Palpation of Joints or Extremities Neurological: Cranial nerves II-XII grossly intact, DTR 2+/4. No acute focal neurological deficit. Psych/Mental Status: Flat affect Assessment & Plan Assessment/Plan (1) Abdominal pain: (2) Obstructive jaundice: PLAN: Plan Patient is a 59-year-old female who presented to [facility] ED on 04/03/2025 with abdominal pain and jaundice. 1. Acute liver injury with jaundice probably secondary to choledocholithiasis – Admit under inpatient status to [facility]. GI consulted. Unclear etiology at this time. CT abdomen pelvis with abnormal gallbladder with intra and extrahepatic biliary dilation. Gallbladder ultrasound with apparent extensive gallbladder adenomyomatosis, no gallstones noted. LFTs with T. bili 8.7, AST 270, ALT 76, alk phos 634. Lipase normal and no evidence of pancreatitis on CT. Okay for clear liquid diet for now, then n.p.o. at midnight with plan for ERCP tomorrow. IV Zosyn ordered. Trend daily labs. Pain control with Tylenol, p.o. oxycodone and IV morphine as needed. 04/04: ERCP was done on 04/04, findings as below. Patient denies any significant history of alcohol use. She drinks wine once in 3 to 4 weeks but not heavy or habitual drinker. Patient returned from ERCP. Full liquid diet advance to soft diet as per tolerated. Liver chemistry shows improvement in transaminases and alkaline phosphatase. Mainly direct hyperbilirubinemia, improving. No leukocytosis but admitting WBC count was high normal at 10.3 K. Impression: - The biliary system were dilated, acquired. - Choledocholithiasis with a partial obstruction was found. Complete removal was accomplished by biliary sphincterotomy and balloon extraction. - A biliary sphincterotomy was performed. - The biliary tree was swept. - One temporary stent was placed into the common bile duct. 2. Tobacco dependence – Smoking 10 to 20 cigarettes daily. Nicotine replacement therapy available as needed. Discussed cessation of discharge. 3. 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 She has been doing outpatient physical therapy for this. No inpatient needs, continue outpatient follow-up. DVT prophylaxis: Lovenox CODE STATUS: Full code, verified Expected disposition: Home, TBD Laboratory Results 04/03/25 21:26: Urine Test Negative 04/04/25 03:26: WBC 8.4, RBC 4.23, Hgb 12.7, Hct 35.6 L, MCV 84.2, MCH 30.0, MCHC 35.7, RDW Std Deviation 47.6 H, RDW Coeff of Lissette 15.9 H, Plt Count 332, MPV 9.5, Sodium 138, Potassium 3.5, Chloride 106, Carbon Dioxide 21.2, Anion Gap 11, BUN 8, Creatinine 0.56 L, Estim Creat Clear Calc 86.79, Est GFR (MDRD) Non-Af 104, BUN/Creatinine Ratio 14.3, Glucose 101 H, Calcium 9.5, Total Bilirubin 7.92 H, Direct Bilirubin 6.55 H, AST 217 H, ALT 488 H, Alkaline Phosphatase 587 H, Total Protein 6.2, Albumin 3.6, Globulin 2.6, Albumin/Globulin Ratio 1.3 Clinical Impression(s) from Imaging Studies Gallbladder Ultrasound 04/03/25 13:36 IMPRESSION: 1. Hepatomegaly with diffuse hepatic steatosis. 2. Findings suggest extensive gallbladder adenomyomatosis. Reading Location: [facility] Abdomen/Pelvis CT 04/03/25 14:45 IMPRESSION: Abnormal gallbladder with intra and extrahepatic biliary dilatation. Choledocholithiasis and cholecystitis not excluded. Charges/Coding Visit Charges Inpatient E&M: 68405 Subs Hosp L2
[2025-04-04 10:36] LABS: Bilirubin, Direct 6.55 mg/dL (0.00-0.30)
--- NOTE | 2025-04-04 12:02 | CASEMGMT ---
Social Work- SW met with pt to discuss self pay status. SW introduced self and role. Pt reports no specific needs at this time regarding financial assistance or community resources. SW provided [place] resource guide for any future needs. SW had previously met with [employer] rep who reported that pt is over-income for [facility] and is not a [place] resident. SW remains available to follow. SHAGGY Goetz
--- NOTE | 2025-04-04 14:28 | PCM.PRE.AN2 ---
ASA Classification* ASA Classification ASA Classification: 2 Assessment & Plan Anesthesia* Anesthesia Assessment Anesthesia Assessment: Discussed sedation and/or anesthesia options, risks, benefits, and alternatives with patient/parents/legal guardian/POA. Questions invited. The patient/parents/legal guardian/POA seems to understand and agrees to proceed with anesthesia plan. Reviewed the physical assessment, medical history, allergy history and patient home medications list prior to surgery/procedure/anesthetic and documented any changes. Performed airway and anesthesia risk assessments. Anesthesia Type Anesthesia Type: General History Source History Obtained from:: Patient and Chart Anesthesia Focused Assessment* Temperature: 98.1 F Pulse Rate: 73 Blood Pressure: 148/79 Respiratory Rate: 16 Pulse Ox: 97 Oxygen Delivery Method: Room Air Airway Assessment Mouth opens: >3 cm Mallampati Score: II Teeth Condition: Intact and Missing Neck Range of motion (ROM): Full ROM Labs Anesthesia Preop lab: CBC WBC, (4.4-11.0) 8.4 K/mm3 Today, 03:26 RBC, (4.2-5.4) 4.23 M/mm3 Today, 03:26 Hgb, (12.0-15.0) 12.7 g/dL Today, 03:26 Hct, (37-47) 35.6 % L Today, 03:26 Plt Count, (150-450) 332 K/mm3 Today, 03:26 CHEMISTRY Potassium, (3.3-5.1) 3.5 mmol/L Today, 03:26 Sodium, (133-145) 138 mmol/L Today, 03:26 BUN, (4-19) 8 mg/dL Today, 03:26 Creatinine, (0.70-1.20) 0.56 mg/dL L Today, 03:26 Glucose, (70-99) 101 mg/dL H Today, 03:26 COAG Urine Test Negative Negative 04/03/25, 21:26 Pre-Assessment Diagnosis/Proposed Procedure Planned Operative Procedure(s): ERCP Anesthesia History 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 When Was Last Pacemaker Check QUESTION #4 FULL TEXT: You/Your Family Experience fever (hyperthermia) with Anesthesia Last Oral Intake Last Oral intake: Last Oral Intake NPO since 00:00 04/04/25 08:12 Meds taken in AM with sips of No 04/04/25 08:12 water? Meds patient instructed to take am of surgery PONV PONV - editor managing newspaper: PONV - editor managing newspaper Female HX of Motion Sickness HX of N/V After Surgery Non-Smoker Duration of Surgery greater than 60 minutes Number of Risk Factors PONV Score Height & Weight Height & Weight: Anesthesia: Height & Weight Height 5 ft 04/04/25 12:35 Weight: 60.4 kg 04/04/25 12:35 Body Mass Index (BMI) 25.9 04/04/25 08:12 Respiratory Assessment Respiratory Assessment - editor managing newspaper: Respiratory Tract Infection Hx - editor managing newspaper Hx Respiratory Tract Infection No 04/03/25 20:18 STOP Sleep Apnea STOP Sleep Apnea - editor managing newspaper: STOP Sleep Apnea - editor managing newspaper Hx Hypertension No 04/03/25 17:40 Hx Sleep Apnea No 04/03/25 17:40 CPAP BIPAP Do you snore loudly (louder No 04/03/25 17:40 than talking or can be heard Do you often feel tired/ No 04/03/25 17:40 fatigued/ sleepy during daytime? Has anyone observed you stop No 04/03/25 17:40 breathing during sleep? STOP Results Negative 04/03/25 17:40 QUESTION #5 FULL TEXT : Do you snore loudly (louder than talking or can be heard through closed doors)? 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 Specify any problems Hx of Preganancy in last 3 No 04/03/25 17:40 Months Nurse Filling Out Transfusion STEVENCAROLINACOLLEEN 04/03/25 17:40 & Questions: Date: 04/03/25 04/03/25 17:40 Time: 17:59 04/03/25 17:40 Patient unable to answer at this time (ie. confused, unrespo /Reproduction History /Reproductive History - editor managing newspaper: /Reproductive Hx- editor managing newspaper Hx Now No 04/03/25 20:18 Gestational Age (in weeks): EDC: Hx Hx Para Hx Section SAB No 04/03/25 20:18 Does the father of the baby or his family experience fever w Father of the baby Malignant Hypertension history comment Active Medications Active Medications: Current Medications Generic Name Dose Route Start Last Admin Trade Name Freq PRN Reason Stop Dose Admin Acetaminophen 650 mg 04/03/25 17:40 04/03/25 22:21 Acetaminophen 325 Mg Tablet PO 650 mg Q6H PRN PRN Administration Pain 1-10 Or Fever>100.7 Enoxaparin Sodium 40 mg 04/04/25 10:00 04/04/25 07:16 Enoxaparin 40 Mg/0.4 Ml Syringe SC Not Given DAILY AVERY Sodium Chloride 1,000 mls @ 150 mls/hr 04/03/25 13:40 04/04/25 09:50 IV 150 mls/hr .[id number] AVERY Administration Piperacillin Sod/Tazobactam 50 mls @ 12.5 mls/hr 04/03/25 18:30 04/04/25 13:38 Sod 3.375 gm/ Sodium Chloride IV 12.5 mls/hr Q8 AVERY Administration Sodium Chloride 250 mls @ 15 mls/hr 04/03/25 17:41 IV .[id number] PRN Saline Flush Sodium Chloride 250 mls @ 15 mls/hr 04/03/25 17:41 IV .[id number] PRN Additional IVPB Infusion Melatonin 3 mg 04/03/25 17:40 Melatonin 3 Mg Tablet PO QHS PRN PRN INSOMNIA Morphine Sulfate 2 mg 04/03/25 17:40 Morphine 2 Mg/Ml Syringe IV Q3H PRN PRN Pain Score 6-10 Ondansetron HCl 4 mg 04/03/25 17:40 Ondansetron 4 Mg/2 Ml Vial IV Q8H PRN PRN NAUSEA/VOMITING Oxycodone HCl 5 mg 04/03/25 17:40 04/03/25 22:21 Oxycodone 5 Mg Tablet PO 5 mg Q4H PRN PRN Administration Pain Score 4-10 Sodium Chloride 10 - 40 ml 04/03/25 17:41 04/03/25 22:21 0.9% Saline Lock 10 Ml Syringe IV 10 ml UD PRN Administration SALINE FLUSH PFSH Medical History Spinal stenosis Back pain (~02/05/25) Smoker Home Medications Medication Instructions Recorded Last Taken Type NK 04/03/25 Unknown History Allergy/AdvReac Type Severity Reaction Status Date / Time No Known Allergies Allergy Verified 04/03/25 11:51 Surgical History H/O unilateral salpingectomy H/O: hysterectomy Social History Smoking Status: Current every day smoker tobacco type: cigarettes Review of Systems (Anesthesia) ROS Narrative System reviewed and no additional complaints, except as documented. Physical Exam Const alert, oriented x3 and average body habitus Resp normal respiratory effort, normal air movement and clear to auscultation bilaterally Cardio regular rate, regular rhythm and no murmurs
--- NOTE | 2025-04-04 15:15 | RAD_ITS ---
PROCEDURE: ERCP BILIARY/PANCREAS 04/04/2025 REASON FOR EXAM: ABD PAIN TECHNIQUE: Procedure Code: RADERCP Modality: DX Procedure: ERCP BILIARY/PANCREAS ERCP images are provided. Radiation time 21 seconds. 11 images are provided. Radiation dose 6.48 mGy. COMPARISON: CT scan on 04/03/2025. FINDINGS: Prior cholecystectomy. No filling defect is identified in the biliary tree. Nondilated biliary tree. No contrast leak is noted. RAD/ERCP Biliary/Pancreas IMPRESSION: Cholecystectomy. No contrast leak. [facility]
--- NOTE | 2025-04-04 15:48 | PCM.POST.ANE ---
Anesthesia: Postop Eval I Current Vital Signs Temperature: 97.1 F Pulse Rate: 102 Blood Pressure: 130/92 Respiratory Rate: 16 Pulse Ox: 97 Oxygen Delivery Method: Room Air Assessment Airway patent: Yes Spontaneous unlabored respirations: Yes Mental status: Awake nausea: No Vomiting: No Anesthesia Complication: No Fluid Hydration Crystalloid volume administer (ml): 600 Total IV fluid infused: 600 Progress Note Anesthesia document: Postop Eval 1 completed: Yes
--- NOTE | 2025-04-04 16:33 | OP.ERCP_ITS ---
Patient Name: Lizzette Draper Procedure Date: 04/04/2025 2:39 PM Date of : 1965 Age: 59 Procedure: ERCP Indications: Bile duct stone(s), Abdominal pain of suspected biliary origin, Suspected ascending cholangitis, Jaundice, Elevated liver enzymes Providers: Tray iM DO Medicines: Monitored Anesthesia Care Patient Profile: This is a 59 year old female. Refer to note in patient chart for documentation of history and physical. Patient has symptoms of acute right upper quadrant abdominal pain and acute jaundice. This patient has no history of previous ERCP. This patient has no history of surgical alteration of the upper digestive tract anatomy. Complications: No immediate complications. Procedure: Pre-Anesthesia Assessment: - Prior to the procedure, a History and Physical was performed, and patient medications and allergies were reviewed. The patient is competent. The risks and benefits of the procedure and the sedation options and risks were discussed with the patient. All questions were answered and informed consent was obtained. Patient identification and proposed procedure were verified by the physician in the pre-procedure area. Mental Status Examination: alert and oriented. Airway Examination: normal oropharyngeal airway and neck mobility. Respiratory Examination: clear to auscultation. CV Examination: normal. Prophylactic Antibiotics: The patient does not require prophylactic antibiotics. Prior Anticoagulants: The patient has taken no anticoagulant or antiplatelet agents except for NSAID medication. ASA Grade Assessment: II - A patient with mild systemic disease. After reviewing the risks and benefits, the patient was deemed in satisfactory condition to undergo the procedure. The anesthesia plan was to use monitored anesthesia care (MAC). Immediately prior to administration of medications, the patient was re-assessed for adequacy to receive sedatives. The heart rate, respiratory rate, oxygen saturations, blood pressure, adequacy of pulmonary ventilation, and response to care were monitored throughout the procedure. The physical status of the patient was re-assessed after the procedure. After obtaining informed consent, the scope was passed under direct vision. Throughout the procedure, the patient's blood pressure, pulse, and oxygen saturations were monitored continuously. The Duodenoscope was introduced through the mouth, and advanced to the duodenum and used to inject contrast into the bile duct. The ERCP was accomplished with ease. The patient tolerated the procedure well. Scope In: 3:08:29 PM Scope Out: 3:21:25 PM Total Procedure Duration Time 0 hours 12 minutes 56 seconds Findings: The event mgr film was normal. The esophagus was successfully intubated under direct vision. The scope was advanced to a normal major papilla in the descending duodenum without detailed examination of the pharynx, larynx and associated structures, and upper GI tract. The upper GI tract was grossly normal. The bile duct was deeply cannulated with the short-nosed traction sphincterotome. Contrast was injected. I personally interpreted the bile duct images. There was brisk flow of contrast through the ducts. Image quality was adequate. Contrast extended to the entire biliary tree. The lower third of the main bile duct and cystic duct were partially obstructed by what appeared to be a stone. Opacification of the entire biliary tree except for the gallbladder, entire opacified area, main bile duct, common bile duct, common hepatic duct, hepatic duct bifurcation, left and right hepatic ducts and all intrahepatic branches and entire biliary tree was successful. The maximum diameter of the ducts was 12 mm. The upper third of the main bile duct and right intrahepatic branches contained three stones, the largest of which was 6 mm in diameter. The entire biliary tree except for the cystic duct and gallbladder were diffusely dilated, acquired. The largest diameter was 5 mm. A long 0.025 inch Jagwire was passed into the biliary tree. A 5 mm biliary sphincterotomy was made with a traction (standard) sphincterotome using ERBE electrocautery. There was no post-sphincterotomy bleeding. The biliary tree was swept with a 12 mm balloon starting at the bifurcation. Sludge was swept from the duct. All stones were removed. One 10 Fr by 7 cm temporary stent was placed 5 cm into the common bile duct. Bile flowed through the stent. The stent was in good position. Impression: - The biliary system were dilated, acquired. - Choledocholithiasis with a partial obstruction was found. Complete removal was accomplished by biliary sphincterotomy and balloon extraction. - A biliary sphincterotomy was performed. - The biliary tree was swept. - One temporary stent was placed into the common bile duct. Procedure Code(s): --- Professional --- 92686, Endoscopic retrograde cholangiopancreatography (ERCP); with placement of endoscopic stent into biliary or pancreatic duct, including pre- and post-dilation and guide wire passage, when performed, including sphincterotomy, when performed, each stent [id number], Endoscopic retrograde cholangiopancreatography (ERCP); with removal of calculi/debris from biliary/pancreatic duct(s) 15933, 26, Endoscopic catheterization of the biliary ductal system, radiological supervision and interpretation CPT copyright 2021 [employer]. All rights reserved. The codes documented in this report are preliminary and upon supervisor sterile processing review may be revised to meet current compliance requirements. Tray Mi DO 04/04/2025 4:32:45 PM This report has been signed electronically. Number of Addenda: 0 Note Initiated On: 04/04/2025 2:39 PM
--- NOTE | 2025-04-04 16:33 | OP.PROVAT_ITS ---
04/04/2025 No Primary Care Physician Re : ERCP procedure for Lizzette Draper Dear Care Physician This procedure was performed on Friday, April 04, 2025. My impressions and recommendations are as follows: Impressions : - The biliary system were dilated, acquired. - Choledocholithiasis with a partial obstruction was found. Complete removal was accomplished by biliary sphincterotomy and balloon extraction. - A biliary sphincterotomy was performed. - The biliary tree was swept. - One temporary stent was placed into the common bile duct. Recommendations : My findings are described in the full procedure note, which is enclosed. If I can be of further assistance, please feel free to contact me at . Sincerely, Tray Mi, 04/04/2025 4:32:45 PM This report has been signed electronically.
--- NOTE | 2025-04-04 16:38 | PCM.POSTANE2 ---
Anesthesia Postop Eval I Sum Postop Eval Completion status Anesthesia document: Postop Eval 1 completed: Yes Anesthesia Postop Eval I Summary Anesthesia Postop Eval I Summary: Anesthesia Postop Eval I: Assessment Summary Airway patent Yes 04/04/25 15:49 [email or web address] Spontaneous unlabored Yes 04/04/25 15:49 [email or web address] respirations Mental status Awake 04/04/25 15:49 [email or web address] nausea No 04/04/25 15:49 [email or web address] Vomiting No 04/04/25 15:49 [email or web address] Anesthesia Postop Eval I: Fluid Summary Crystalloid volume administer 600 04/04/25 15:49 [email or web address] (ml) Colloids volume administered ( ml) Blood Product volume administered (ml) Total IV fluid infused 600 04/04/25 15:49 [email or web address] Anesthesia Postop Eval I: Summary Notes Anesthesia Complication No 04/04/25 15:49 [email or web address] Anesthesia Complication Comment: Post-operative progress note Anesthesia: Postop Eval II Evaluation Mental status: Awake Pain Level: 0 nausea: No Vomiting: No Complications Anesthesia Complication: No
[2025-04-05] MEDS: 0.9% Normal Saline (1000mL) 1,000 ML 150 ML IV ×2 (00:55→07:18)
[2025-04-05 04:14] VITALS: BP 141/83; PULSE 84; RESP 16; TEMP 36.5; O2SAT 95
[2025-04-05] MEDS: Piperacil/Tazobactam 3.375 GM in 0.9% Normal Saline (50mL MB+) 50 ML IV (05:25)
[2025-04-05 06:44] LABS: Hematocrit 33.9 % (37-47); Hemoglobin 11.8 g/dL (12.0-15.0); Immature Granulocytes Count 0.050 X10^3/uL (0.0-0.0); Mean Corp Hgb Conc 34.8 g/dL (32-36); Mean Corpuscular Volume 84.3 fL (81-99); Mean Platelet Vol. 9.8 fl (6.2-12.0); NRBC Flagged by Analyzer 0 % (0-5); Platelet Count 370 K/mm3 (150-450); RBC Distribution Width CV 15.9 % (11.6-14.6); RBC Distribution Width SD 48.4 fl (35.1-43.9); Red Blood Count 4.02 M/mm3 (4.2-5.4); White Blood Count 11.4 K/mm3 (4.4-11.0)
[2025-04-05 06:57] LABS: Prothrombin Time (Protime)PT. 13.6 SECONDS (11.7-14.9)
[2025-04-05 07:16] LABS: AST(SGOT) 67 U/L (<=31); Alanine Aminotransfer ALT/SGPT 353 U/L (<=34); Albumin, Serum 3.7 g/dL (3.4-4.8); Alkaline Phosphatase 541 U/L (35-104); Anion Gap 11 (5-15); BUN 8 mg/dL (4-19); BUN/Creat Ratio 20.6 RATIO (10-20); Bilirubin, Direct 2.35 mg/dL (0.00-0.30); Calcium,Total 9.7 mg/dL (7.6-11.0); Carbon Dioxide 20.8 mmol/L (21.0-32.0); Chloride 107 mmol/L (98-108); Estimated Creatinine Clearance 118.54 ml/min (50-250); Globulin 2.6 g/dL (2.2-4.2); Glucose 146 mg/dL (70-99); Potassium 3.8 mmol/L (3.3-5.1)
[2025-04-05 07:48] VITALS: BP 145/86; PULSE 82; RESP 18; TEMP 36.7; O2SAT 95
[2025-04-05 07:54] VITALS: O2SAT 94
--- NOTE | 2025-04-05 10:45 | DCINST_ITS ---
Discharge Instructions DC O2, CPAP, BIPAP needs Home O2 Discharge instructions: No Dressing / Incision Discharge Activity: Return to Normal Activity Weight Bearing Status: Weight bearing as tolerated Dressing / Incision Call your doctor if you observe: Fever of 101 or Higher, Coldness, Increased Pain, Numbness or Tingling, Change in Color, Inability to urinate, Inability to have a bowel movement, Shortness of breath, Dizziness, Fainting spells, Swelling in the ankles, Chest pain, Prolonged hiccupping, Increased palpitations (irregular heartbeat) and Calf discomfort Follow Up Care When: IN 2 WEEKS Test Results: Test results from this visit will be discussed in further detail at your follow- up appointment, if applicable. Discharge Plan Admission Admit Date/Time: 04/03/25 16:49 Primary Reason for Your Visit: Obstructive jaundice due to: Repeat Attending Provider: Toribio Sanabria Primary Care Provider: Care Physician,No Primary Consulting Providers: Tray Mi; Rony Martins Instructions Additional Instructions / Restrictions: [id number] low-dose ibuprofen/Motrin 400 mg 3 times daily as needed for abdominal pain or feve for next 2-3. Discharge Orders/Prescriptions Prescriptions: New cefdinir 300 mg capsule 300 mg PO BID 5 Days Qty: 10 0RF Referrals / Follow Up: Chintan Kirby MD [Med Staff - Active Staff, General Surgery] - Within 1 Month Referral Note: Status post ERCP. Abnormal GB with thickened wall with intra and extrahepatic biliary dilatation. Tray Mi DO [Med Staff - Active Staff, Gastroenterology] - Within 1 Month Referral Note: Biliary stent Care Physician,No Primary [Primary Care Provider, Medical] Disposition Disposition (needs filled in before D/C Order can be placed): Home, Self Care
--- NOTE | 2025-04-05 11:30 | DS.PCM_ITS ---
Providers Date of Admission: 04/03/25 Date of Discharge: 04/05/25 Primary Care Physician: Christina Primary Care Phys Consultations 04/03/25 17:40 Consult: Gastroenterology Routine Consulting Provider: Ra Shmuelhsaan Reason for Consult: abd pain w/ jaundice EMERGENT Consult: No MD Notified: Yes Date Notified: 04/03/25 Time Notified: 18:14 Method of Notification: Text Reason For Visit: RUQ PAIN W/JAUNDICE Diagnosis Discharge Diagnosis (1) Abdominal pain: Status: Acute Code(s): R10.9 - Unspecified abdominal pain (2) Obstructive jaundice: Status: Acute Code(s): K83.1 - Obstruction of bile duct Plan Patient is a 59-year-old female who presented to [facility] ED on 04/03/2025 with abdominal pain and jaundice. 1. Acute liver injury with jaundice probably secondary to choledocholithiasis – Admit under inpatient status to [facility]. GI consulted. Unclear etiology at this time. CT abdomen pelvis with abnormal gallbladder with intra and extrahepatic biliary dilation. Gallbladder ultrasound with apparent extensive gallbladder adenomyomatosis, no gallstones noted. LFTs with T. bili 8.7, AST 270, ALT 76, alk phos 634. Lipase normal and no evidence of pancreatitis on CT. Okay for clear liquid diet for now, then n.p.o. at midnight with plan for ERCP tomorrow. IV Zosyn ordered. Trend daily labs. Pain control with Tylenol, p.o. oxycodone and IV morphine as needed. 04/04: ERCP was done on 04/04, findings as below. Patient denies any significant history of alcohol use. She drinks wine once in 3 to 4 weeks but not heavy or habitual drinker. Patient returned from ERCP. Full liquid diet advance to soft diet as per tolerated. Liver chemistry shows improvement in transaminases and alkaline phosphatase. Mainly direct hyperbilirubinemia, improving. No leukocytosis but admitting WBC count was high normal at 10.3 K. Impression: - The biliary system were dilated, acquired. - Choledocholithiasis with a partial obstruction was found. Complete removal was accomplished by biliary sphincterotomy and balloon extraction. - A biliary sphincterotomy was performed. - The biliary tree was swept. - One temporary stent was placed into the common bile duct. 04/05: Patient abdominal pain is resolved. No fever. Patient tolerated soft diet. Patient discharged on cefdinir for 5 more days. Had IV Zosyn while inpatient for 3 days. OTC Motrin 4 mg 3 times daily as needed for pain or fever for the next 2 to 3 days. Follow-up in GI office in 1 month. Advised follow-up with [facility] Dr. Kirby abnormal gallbladder with thickened wall possible adenomyomatosis. 2. Tobacco dependence – Smoking 10 to 20 cigarettes daily. Nicotine replacement therapy available as needed. Discussed cessation of discharge. 3. 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 She has been doing outpatient physical therapy for this. No inpatient needs, continue outpatient follow-up. DVT prophylaxis: Lovenox CODE STATUS: Full code, verified Expected disposition: Home, TBD Clinical Impression(s) from Imaging Studies Gallbladder Ultrasound 04/03/25 13:36 IMPRESSION: 1. Hepatomegaly with diffuse hepatic steatosis. 2. Findings suggest extensive gallbladder adenomyomatosis. Reading Location: [facility] Abdomen/Pelvis CT 04/03/25 14:45 IMPRESSION: Abnormal gallbladder with intra and extrahepatic biliary dilatation. Choledocholithiasis and cholecystitis not excluded. Medications at Discharge Home Medications cefdinir 300 mg capsule 300 mg PO BID 5 days #10 caps 04/05/25 Hospital Course Summary of Care Provided Hospital Course: Laboratory Results 04/05/25 06:15: WBC 11.4 H, RBC 4.02 L, Hgb 11.8 L, Hct 33.9 L, MCV 84.3, MCH 29.4, MCHC 34.8, RDW Std Deviation 48.4 H, RDW Coeff of Lissette 15.9 H, Plt Count 370, MPV 9.8, Immature Gran % (Auto) 0.400, Neut % (Auto) 78.7 H, Lymph % (Auto) 17.0 L, Harding % (Auto) 3.5, Eos % (Auto) 0.2, Baso % (Auto) 0.2, Absolute Neuts (auto) 9.0 H, Absolute Lymphs (auto) 1.93, Nucleated RBC % 0, PT 13.6, INR 1.0, Sodium 138, Potassium 3.8, Chloride 107, Carbon Dioxide 20.8 L, Anion Gap 11, BUN 8, Creatinine 0.41 L, Estim Creat Clear Calc 118.54, Est GFR (MDRD) Non-Af 113, BUN/Creatinine Ratio 20.6 H, Glucose 146 H, Calcium 9.7, Total Bilirubin 2.99 H, Direct Bilirubin 2.35 H, AST 67 H, ALT 353 H, Alkaline Phosphatase 541 H , Total Protein 6.3, Albumin 3.7, Globulin 2.6 Physical Exam Narrative Seen and examined Abdominal pain is resolved. Jaundice improving. Patient was admitted with jaundice for couple of days about 3 days and abdominal pain, RUQ for about 1 week. No prior history of liver or gallbladder or pancreatic disease. No family history of hepatobiliary or pancreatic cancer. No fever. Physical exam General: Alert, Oriented x3, Cooperative HEENT: Icterus present. Atraumatic, PERRLA, EOMI, Normocephalic. Oral: No Gingival or Mucosal Lesions/ Ulcerations Neck: Supple, No JVD, Negative Carotid Bruits Chest wall/Lungs: Air entry diminished in bilateral lung bases. No crepitation/rhonchi Cardiovascular: Regular rate and rhythm, Normal S1,S2, No M/G/R Abdomen: Bowel Sounds Present, Soft, no tenderness in RUQ. Non-Distended : No dysuria. No renal angle tenderness. No suprapubic tenderness. Extremities: No edema, Capillary Refill Less than 3 Seconds Skin: No rashes, No breakdown Musculoskeletal: No Tenderness to Palpation of Joints or Extremities Neurological: Cranial nerves II-XII grossly intact, DTR 2+/4. No acute focal neurological deficit. 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 Problem Recommendation Dietitian As medically able, rec BENJA to Transitional w/ goal of Recommendations/ regular diet Changes As medically able, rec ensure clear tid w/ meals for increased nutrition if consumed Weight / BMI Weight Weight: 133 lb 2.547 oz Body Mass Index (BMI) 25.9 ABG / Lab / Microbiology Data 04/05/25 06:15 04/05/25 06:15 Laboratory: Laboratory Results - last 24 hr 04/05/25 06:15: WBC 11.4 H, RBC 4.02 L, Hgb 11.8 L, Hct 33.9 L, MCV 84.3, MCH 29.4, MCHC 34.8, RDW Std Deviation 48.4 H, RDW Coeff of Lissette 15.9 H, Plt Count 370, MPV 9.8, Immature Gran % (Auto) 0.400, Neut % (Auto) 78.7 H, Lymph % (Auto) 17.0 L, Harding % (Auto) 3.5, Eos % (Auto) 0.2, Baso % (Auto) 0.2, Absolute Neuts (auto) 9.0 H, Absolute Lymphs (auto) 1.93, Nucleated RBC % 0, PT 13.6, INR 1.0, Sodium 138, Potassium 3.8, Chloride 107, Carbon Dioxide 20.8 L, Anion Gap 11, BUN 8, Creatinine 0.41 L, Estim Creat Clear Calc 118.54, Est GFR (MDRD) Non-Af 113, BUN/Creatinine Ratio 20.6 H, Glucose 146 H, Calcium 9.7, Total Bilirubin 2.99 H, Direct Bilirubin 2.35 H, AST 67 H, ALT 353 H, Alkaline Phosphatase 541 H , Total Protein 6.3, Albumin 3.7, Globulin 2.6 Radiography Diagnostic Testing: Radiology Impression Endo Retro Cholangiopancreatogram 04/04/25 15:15 IMPRESSION: Cholecystectomy. No contrast leak. [facility] Instructions Weight Bearing Status: Weight bearing as tolerated Call your doctor if you observe: Fever of 101 or Higher, Coldness, Increased Pain, Numbness or Tingling, Change in Color, Inability to urinate, Inability to have a bowel movement, Shortness of breath, Dizziness, Fainting spells, Swelling in the ankles, Chest pain, Prolonged hiccupping, Increased palpitations (irregular heartbeat) and Calf discomfort DC O2, CPAP, BIPAP Needs Home O2 Discharge instructions: No When: IN 2 WEEKS Meaningful Use Info Meaningful Use Meaningful Use Diagnoses (Choose all that apply): None applicable Discharge Plan Admission Admit Date/Time: 04/03/25 16:49 Primary Reason for Your Visit: Obstructive jaundice due to: Repeat Attending Provider: Toribio Sanabria Primary Care Provider: Care Physician,Christina Primary Consulting Providers: Tray Mi; Rony Martins Instructions Additional Instructions / Restrictions: Lilo-eya-[id number] low-dose ibuprofen/Motrin 400 mg 3 times daily as needed for abdominal pain or feve for next 2-3. Discharge Orders/Prescriptions Prescriptions: New cefdinir 300 mg capsule 300 mg PO BID 5 Days Qty: 10 0RF Referrals / Follow Up: Chintan Kirby MD [Med Staff - Active Staff, General Surgery] - Within 1 Month Referral Note: Status post ERCP. Abnormal GB with thickened wall with intra and extrahepatic biliary dilatation. Tray Mi DO [Med Staff - Active Staff, Gastroenterology] - Within 1 Month Referral Note: Biliary stent Care Physician,No Primary [Primary Care Provider, Medical] Disposition Disposition (needs filled in before D/C Order can be placed): Home, Self Care Charges/Coding Visit Charges Inpatient E&M: 29401 Disch Hosp >30min
--- NOTE | 2025-04-05 12:00 | CASEMGMT ---
ASUNCION LOPEZ NOTE: Discharge order is in. Rx for Atb has been e-scribed to [facility] in [place]. Call to the pharmacy, cost is $9.65. ASUNCOIN LOPEZ to room, pt made aware and states this is affordable. Pt does not have a PCP. Offered to provide physician's directory and info on [facility], as pt does not have insurance. She states she has list of providers in her area and is also aware of a couple of free clinics in her area & declines wanting info on [facility]. She states she does OP therapy for back injury that is being covered by Workers' Comp. She states she has been up independently in room w/out difficulty. She denies having any discharge needs or concerns. She lives w/her boyfriend and states he is supportive and will be taking her home today after he gets off of work. She is aware to f/u with Dr Mi and Dr Kirby in 1 month. Maryjane CARDOSO RN, CM
--- NOTE | 2025-04-05 12:35 | PHA.DC.MC.R ---
Pharmacy [facility] Counseling Pharmacy Service has performed discharge medication reconciliation and counseling for this patient. The patient's discharge medication list was reviewed for discrepancies and discrepancies were resolved. The patient was counseled on the following discharge medications and changes in medications for homegoing were reviewed. The Reason for Use, instructions for use, and potential side effects were reviewed for all new medications. The patient's questions regarding all of their medications were answered. 1. Cefdinir 300 mg PO BID x 5 days The patient was able to verbally demonstrate an understanding of their discharge medications. The patient was counselled on new medication cefdinir by pharmacy specialist Mauro. Medications at Discharge Home Medications cefdinir 300 mg capsule 300 mg PO BID 5 days #10 caps 04/05/25
[2025-04-05 14:24] VITALS: BP 155/83; PULSE 86; RESP 18; TEMP 36.6; O2SAT 99
== END 2025-04-05 15:41 | disposition home or self-care (01) | DRG 444 ==
LOC: ED 16:19 → MS3 17:07
PROVIDERS: Internal Medicine Gastroenterology; Admitting Provider Hospitalist; Emergency Provider Emergency Medicine; Visit Provider Internal Medicine
DX: K80.51 Calculus of bile duct without cholangitis or cholecystitis with obstruction (principal); E43 Unspecified severe protein-calorie malnutrition; K76.89 Other specified diseases of liver; E66.9 Obesity, unspecified; K76.0 Fatty (change of) liver, not elsewhere classified; F17.210 Nicotine dependence, cigarettes, uncomplicated; S39.92XS Unspecified injury of lower back, sequela; M54.50 Low back pain, unspecified; K82.8 Other specified diseases of gallbladder; R16.0 Hepatomegaly, not elsewhere classified; X58.XXXS Exposure to other specified factors, sequela; Z68.25 Body mass index [BMI] 25.0-25.9, adult
CPT/HCPCS: 36415; 74177; 74330; 76000; 76705; 80048; 80053; 80076; 81001; 81025; 82248; 83690; 85025; 85027; 85610; 93005; 94668; 99285; C2625; Q9967; A4216; J2405